=== PATIENT | male | born 1955 | race Caucasian/White ===

== ENCOUNTER 2022-07-06 11:08 | Inpatient (IN) ==
[2022-07-06] MEDS ORDERED: ONDANSETRON INJ 2 MG/ML 2 ML VIAL IV STA (11:28)
[2022-07-06] MEDS ORDERED: MoRPHine SULFATE 4 MG/ML 1 ML CARP\\VIAL IV STA ×2 (11:28→13:37)
[2022-07-06] MEDS ORDERED: SODIUM CHLORIDE 0.9% 1000ML 1,000 ML IV STA (11:28)
--- NOTE | 2022-07-06 11:38 | Emergency Department Note ---
History of Present Illness General Chief complaint: Testicular Pain Time Seen by Provider: 07/06/22 11:16 History of Present Illness This 66-year-old male presents today by BLS ambulance, for evaluation of his lef t testicle. Patient states he has a known inguinal hernia. States it frequently "pops out". This occurs with straining or coughing. He states he usually is able to push it back in. This morning he woke around 9 AM with significant discomfort in his left testicle. Upon inspection, he noted that his inguinal hernia had popped out again, but was larger than he had ever seen in the past. He was not able to reduce it. He states it was not like this when going to bed last evening. He now notes abdominal pain and some back pain. Denies any nausea or vomiting. States he had a normal bowel movement last evening. Patient states he has not seen a physician in over 25 years. Denies any medical problems. Home Medications Medication Instructions Recorded Confirmed Type naproxen sodium 220 mg tablet 200 mg PO DAILY PRN Pain 07/06/22 07/06/22 History (Shaggy) Allergies Allergy/AdvReac Type Severity Reaction Status Date / Time No Known Allergies Allergy Unverified 07/06/22 13:36 Past Med/Surg History Medical History Cardiomegaly Emphysema of lung Inguinal hernia Smoker Surgical History Hx of tonsillectomy Family History Mother Breast cancer Brother Cancer Social History Smoking Status: Current every day smoker Do You Dip or Chew Tobacco: No; Tobacco Cessation Education Requested by Patient: No Hx Alcohol Use: No Hx Substance Use: No Preferred Language: French Hearing Ability: Normal Medical Diagnostic Radiographer Required: No Beliefs That Will Affect Care: None marital status: Single Current Living Situation: Alone current occupational status: retired current occupation: worked for [employer] and [employer] Other Information That Helps Us Care for You: No Feels Safe at Home: Yes Safety Concerns: Feels Safe At This Time Review of Systems A total of 10 systems reviewed and were otherwise negative Physical Exam Vital Signs Vital Signs - 24 hr 07/06/22 11:16 07/06/22 11:16 07/06/22 11:46 Temperature 36.7 C 36.7 C Temperature Source Oral Oral Pulse Rate 89 96 H Pulse Rate [Apical] 97 H Pulse Rhythm Regular Pulse Rhythm [Apical] Regular Pulse Strength Normal Pulse Strength [Apical] Normal Respiratory Rate 18 18 18 Respiratory Effort / Characteristics Non-Labored Non-Labored Respiratory Depth Normal Normal Respiratory Pattern Regular Regular Blood Pressure 183/115 H Blood Pressure [Right Arm] 183/115 H Blood Pressure Mean 137 Blood Pressure Mean [Right Arm] 137 Blood Pressure Position Lying Blood Pressure Position [Right Arm] Lying Pulse Oximetry 95 95 93 Oxygen Delivery Method Room Air Room Air Room Air Sepsis Recent Fever Within 48 Hours No Sepsis New/Unexplained Change in Mental Status No Sepsis Action Taken by Nursing No Action Required 07/06/22 13:30 07/06/22 15:09 Temperature Temperature Source Pulse Rate Pulse Rate [Apical] 91 H 110 H Pulse Rhythm Pulse Rhythm [Apical] Pulse Strength Pulse Strength [Apical] Respiratory Rate 18 16 Respiratory Effort / Characteristics Respiratory Depth Respiratory Pattern Blood Pressure Blood Pressure [Right Arm] 187/104 H 143/95 H Blood Pressure Mean Blood Pressure Mean [Right Arm] 131 111 Blood Pressure Position Blood Pressure Position [Right Arm] Pulse Oximetry 93 88 L Oxygen Delivery Method Room Air Room Air Sepsis Recent Fever Within 48 Hours Sepsis New/Unexplained Change in Mental Status Sepsis Action Taken by Nursing General: Well-developed, well-nourished, early white male, in obvious discomfort. No acute distress. Laying on the bed. Alert and oriented. Skin: Warm and dry with good turgor. No rashes or lesions. No ecchymosis or erythema. The patient is not diaphoretic. No abrasions. HEENT: Normocephalic atraumatic. Eyes PERRLA, EOMI. No conjunctiva or scleral injection. Heart: Heart RRR. No MGR. Peripheral pulses are 2+. Lungs: Lungs are clear to auscultation. No crackles rhonchi or wheezing. Good air movement. The patient is able to take a deep breath. Abdomen: Abdomen was inspected, auscultated, and palpated. Bowel sounds present x 4. Obese. Soft, nontender to palpation. No hepato-splenomegaly. No masses noted. No rebound, No pain over McBurney's point. No CVA tenderness. Genitalia: External genitalia generally appear normal. It is scrotum is massively enlarged on the left. It is firm. There is fullness in the inguinal canal as well. Patient has no drainage. Urine was ordered but has not been obtained. Musculoskeletal: Gross motor function of the upper and lower extremities is intact and unremarkable. Neurologic: Gross sensation is intact across the upper and lower extremities by soft touch. Course Administered Medications Benzonatate (Benzonatate 100 Mg Capsule) 100 mg PO TID CALVIN Stop: 08/05/22 20:59 Last Admin: 07/06/22 20:04 Dose: 100 mg Documented By: [facility] [place]per[place] Sod/Tazobactam (Sod 4.5 gm/ Dextrose) 120 mls @ 30 mls/hr IV ONE ONE; Protocol Stop: 07/06/22 23:29 Last Admin: 07/06/22 20:04 Dose: 30 mls/hr Documented By: [facility] [place] Levalbuterol HCl (Levalbuterol 1.25mg/0.5ml Neb) 1.25 mg NEB Q6R CALVIN; Protocol Stop: 08/05/22 18:59 Last Admin: 07/06/22 19:35 Dose: 1.25 mg Documented By: AB Discontinued Medications Hydromorphone HCl (Hydromorphone Inj 0.5 Mg/0.5 Ml Syr) 0.5 mg IV NOW STA Stop: 07/06/22 17:24 Last Admin: 07/06/22 17:38 Dose: 0.5 mg Documented By: Sodium Chloride (Nss 1000ml) 1,000 mls @ 125 mls/hr IV .Q8H STA Stop: 07/06/22 19:27 Last Infusion: 07/06/22 19:53 Dose: 0 mls/hr Documented By: MARY ELLEN Admin: 07/06/22 12:22 Dose: 125 mls/hr Documented By: [facility] Lorazepam (Lorazepam 2 Mg/2 Ml Syr) 0.5 mg IV NOW STA; Protocol Stop: 07/06/22 14:16 Last Admin: 07/06/22 14:36 Dose: 0.5 mg Documented By: [facility] Morphine Sulfate (Morphine Sulfate 4 Mg/Ml 1 Ml Carp\\Vial) 4 mg IV NOW STA Stop: 07/06/22 11:29 Last Admin: 07/06/22 12:22 Dose: 4 mg Documented By: PARRIS Morphine Sulfate (Morphine Sulfate 4 Mg/Ml 1 Ml Carp\\Vial) 4 mg IV NOW STA Stop: 07/06/22 13:38 Last Admin: 07/06/22 13:44 Dose: 4 mg Documented By: JAYA Ondansetron HCl (Ondansetron Inj 2 Mg/Ml 2 Ml Vial) 4 mg IV NOW STA Stop: 07/06/22 11:29 Last Admin: 07/06/22 12:22 Dose: 4 mg Documented By: PARRIS Medical Decision Making Differential Diagnosis Incarcerated hernia, bowel obstruction, varicocele, hematoma Medical Records Attestation: I reviewed the patient's medical records. Home Medications Current Medication List: was personally reviewed by me Laboratory Data CBC, chemistry panel, troponin, and COVID test were obtained today. White count mildly elevated 11.39. Normal H&H. Chemistry panel is unremarkable. Lipase low at less than 3. COVID test is negative. Troponin was normal. Result diagrams: 07/06/22 12:10 07/06/22 12:10 Lab Results 07/06/22 07/06/22 07/06/22 Range/Units 12:10 12:10 12:10 WBC 11.39 H (4.8-10.8) K/ul RBC 5.21 (4.63-6.08) M/uL Hgb 16.5 (14.0-18.0) g/dl Hct 47.0 (40.1-51.0) % MCV 90.2 (80.0-100.0) fL MCH 31.7 (25.0-34.0) pg MCHC 35.1 (32.0-36.0) g/dL RDW Std Deviation 41.5 (36.4-46.3) fL RDW Coeff of Zeinab 12.7 (11.5-14.5) % Plt Count 134 (130-400) K/uL MPV 9.9 (9.4-12.4) fL Immature Gran % (Auto) 0.6 % Neut % (Auto) 89.2 % Lymph % (Auto) 4.7 % Milam % (Auto) 5.1 % Eos % (Auto) 0.2 % Baso % (Auto) 0.2 % Neut # (Auto) 10.17 H (1.4-6.5) K/uL Lymph # (Auto) 0.53 L (1.2-3.4) K/uL Milam # (Auto) 0.58 (0.24-0.82) K/uL Eos # (Auto) 0.02 (0-0.50) K/uL Baso # (Auto) 0.02 (0-0.2) K/uL Immature Gran # (Auto) 0.07 H (0.00-0.02) K/uL Sodium 134 L (136-145) mmol/L Potassium 4.0 (3.5-5.1) mmol/L Chloride 101 (98-107) mmol/L Carbon Dioxide 25 (21-32) mmol/L Anion Gap 8 (3-11) BUN 18 (6-23) mg/dl Creatinine 0.95 (0.6-1.4) mg/dl Est Cr Clr Drug Dosing 85.5 ml/min Est GFR ( Amer) 96.3 ml/min Est GFR (Non-Af Amer) 83.1 ml/min BUN/Creatinine Ratio 18.9 (10-20) Glucose 135 H (70-99(Fasting)) mg/dl Calcium 9.1 (8.5-10.1) mg/dl Total Bilirubin 0.9 (0.2-1.0) mg/dl AST 19 (13-39) U/L ALT 16 (7-52) U/L Alkaline Phosphatase 97 (34-104) U/L Troponin I High Sens (0-20) pg/ml Total Protein 7.3 (6.0-8.3) gm/dl Albumin 4.2 (3.4-5.0) gm/dl Globulin 3.1 (2.5-4.0) gm/dl Albumin/Globulin Ratio 1.4 (0.9-2) Lipase < 3 L (11-82) U/L SARS-CoV-2, RNA, NAAT NEGATIVE (NEGATIVE) 07/06/22 Range/Units 12:10 WBC (4.8-10.8) K/ul RBC (4.63-6.08) M/uL Hgb (14.0-18.0) g/dl Hct (40.1-51.0) % MCV (80.0-100.0) fL MCH (25.0-34.0) pg MCHC (32.0-36.0) g/dL RDW Std Deviation (36.4-46.3) fL RDW Coeff of Zeinab (11.5-14.5) % Plt Count (130-400) K/uL MPV (9.4-12.4) fL Immature Gran % (Auto) % Neut % (Auto) % Lymph % (Auto) % Milam % (Auto) % Eos % (Auto) % Baso % (Auto) % Neut # (Auto) (1.4-6.5) K/uL Lymph # (Auto) (1.2-3.4) K/uL Milam # (Auto) (0.24-0.82) K/uL Eos # (Auto) (0-0.50) K/uL Baso # (Auto) (0-0.2) K/uL Immature Gran # (Auto) (0.00-0.02) K/uL Sodium (136-145) mmol/L Potassium (3.5-5.1) mmol/L Chloride (98-107) mmol/L Carbon Dioxide (21-32) mmol/L Anion Gap (3-11) BUN (6-23) mg/dl Creatinine (0.6-1.4) mg/dl Est Cr Clr Drug Dosing ml/min Est GFR ( Amer) ml/min Est GFR (Non-Af Amer) ml/min BUN/Creatinine Ratio (10-20) Glucose (70-99(Fasting)) mg/dl Calcium (8.5-10.1) mg/dl Total Bilirubin (0.2-1.0) mg/dl AST (13-39) U/L ALT (7-52) U/L Alkaline Phosphatase (34-104) U/L Troponin I High Sens 11.8 (0-20) pg/ml Total Protein (6.0-8.3) gm/dl Albumin (3.4-5.0) gm/dl Globulin (2.5-4.0) gm/dl Albumin/Globulin Ratio (0.9-2) Lipase (11-82) U/L SARS-CoV-2, RNA, NAAT (NEGATIVE) Imaging Data My Impression: Chest x-ray obtained today was reviewed by me and read by radiology. Cardiomegaly and emphysema are noted without acute abnormality. No pneumothorax. No nodules. CT scan of the abdomen pelvis was obtained today. This was reviewed by me and read by radiology. There is a large left inguinal hernia with nonobstructed segment of sigmoid colon. No bowel obstruction is noted. He has a 3.7 x 3.8 infrarenal abdominal aortic aneurysm. Cardiomegaly and emphysema are again noted. Appendix is well visualized and normal. Radiologist's Impression: Abdomen/Pelvis CT 07/06/22 11:28 CT SCAN OF THE ABDOMEN AND PELVIS WITHOUT IV CONTRAST CLINICAL HISTORY: Inguinal hernia. COMPARISON STUDY: No priors. TECHNIQUE: CT scan of the abdomen and pelvis is performed from the lung bases to the proximal femora. Images are reviewed in the axial, sagittal, and coronal planes. IV contrast was not administered for this examination. A dose lowering technique was utilized adhering to the principles of ALARA. CT DOSE: 491.68 mGy.cm FINDINGS: Lung bases: The heart is enlarged and without pericardial effusion. The coronary arteries are densely calcified. Emphysematous change is noted at the lung bases. There is bibasilar scarring/atelectasis. A fat-containing Bochdalek hernia is seen on the left. No airspace consolidation or pleural effusion is identified. There is a small hiatal hernia. Liver: The unenhanced liver is normal in size, contour, and attenuation. There is no intrahepatic biliary ductal dilatation. Gallbladder: Unremarkable. Spleen: Normal in size and attenuation. There are calcified splenic granulomas. Pancreas: The unenhanced pancreas is moderately atrophic and grossly unremarkable. Adrenal glands: A 2 cm left adrenal nodule meets criteria for a fat-containing adenoma. The right adrenal gland is normal in appearance. Kidneys: The unenhanced kidneys are normal in size and without hydronephrosis. There are no renal calculi identified. There are at least 2 left renal cyst which measure up to 2.0 cm. Abdominal vasculature: There is moderate atherosclerotic calcification of the abdominal aorta. An infrarenal abdominal aortic aneurysm measures 3.7 x 3.8 cm (AP x transverse). Bowel: There is a large left inguinal hernia which contains a nonobstructed segment of the sigmoid colon. There is mild to moderate colonic fecal retention. No bowel obstruction is seen. The appendix is well-visualized and normal. Peritoneum: There is no intraperitoneal free air or abdominal ascites. There is a small fat-containing umbilical hernia. Lymphadenopathy: None. Pelvic viscera: The bladder, prostate gland is mildly enlarged and heterogeneous. The bladder is distended, wall appears thickened/trabeculated indicating chronic outlet obstruction. There is a large left inguinal hernia which contains bowel. Skeletal structures: The skeletal structures are osteopenic. There is a moderate chronic-appearing superior endplate compression deformity of L1. Mild lumbosacra l spondylosis is observed. No lytic or blastic lesions are seen. IMPRESSION: 1. There is a large left inguinal hernia which contains a nonobstructed segment of the sigmoid colon. 2. No bowel obstruction is seen. 3. There is a 3.7 x 3.8 cm infrarenal abdominal aortic aneurysm. 4. Cardiomegaly and emphysema. 5. Additional findings as above. ACT 112: Negative or not required by law. Electronically signed by: Gerardo Alcantar M.D. 07/06/2022 1:39 PM Chest X-Ray 07/06/22 11:29 SINGLE VIEW CHEST CLINICAL HISTORY: Preoperative examination FINDINGS: 2 AP, portable, upright chest radiographs are obtained. No prior studies are available for comparison at the time of dictation. The heart is mildly enlarged noting atherosclerotic calcification of the thoracic aorta. The pulmonary vasculature is noncongested. Emphysematous changes noted with left apical bullae. Nonspecific interstitial thickening is likely chronic. A nipple shadow projects over the right lung base. There is bibasilar scarring/atelectasis. No airspace consolidation or large pleural effusion is identified. No pneumothorax is seen. The skeletal structures are osteopenic. The bony thorax is grossly intact. IMPRESSION: Cardiomegaly and emphysema with no acute cardiopulmonary abnormality identified. ACT 112: Negative or not required by law. Electronically signed by: Gerardo Alcantar M.D. 07/06/2022 12:49 PM Blood Pressure Blood Pressure Findings: Elevated blood pressure Blood Pressure Disposition: further management by hospitalist SULEMAN Arnold Patient was evaluated in room B5. Conservative care measures were discussed. IV was established. Labs were obtained. Chest x-ray and EKG were obtained in anticipation of surgery. CT scan of the abdomen and pelvis was obtained today and reviewed by me. It was read by radiology as Patient was given morphine 4 mg IV and Zofran 4 mg IV to assist with pain control. He last ate yesterday afternoon at 3 PM. He did have approximately quarter bottle of Pepsi this morning about an hour and a half ago. He did require second dose of morphine 4 mg IV. Consult was placed to Dr. Beaver from general surgery. He did come to the department did evaluate the patient. Please see his dictation. Patient was given Ativan 0.5 mg IV to assist with relaxation in an attempt to manually reduce his hernia. Patient was given a glass of ice water to see if he could retain fluids. While drinking, he coughed, and then had recurrent extrusion of the bowel through the inguinal hernia. Scrotum was enlarged again. He was given additional 4 mg morphine IV for pain control. Dr. Beaver did return to the department and manually reduce it again. Because of the ease of which it recurred, he recomm ended admission, medical clearance, and surgical fixation. Patient is in agreement. He will require medical clearance as he has not seen a provider in over 25 years. [facility] Please see that dictation for an and final management. Impression & Plan Inguinal hernia Admission Discharge Plan Visit Data Chief Complaint: Testicular Pain ED Provider: Moraima Escobar ED Midlevel Provider: Juancarlos Albarran Discharge Problem: Inguinal hernia Patient Disposition: Admitted As Inpatient Condition: Fair Discharge Instructions Interventions: ED Discharge Assessment Last Done: 07/06/22 18:14
[2022-07-06 12:21] LABS: Basophils # (auto) 0.02 K/uL (0-0.2); Basophils % (auto) 0.2 %; Eosinophils # (auto) 0.02 K/uL (0-0.50); Eosinophils % (auto) 0.2 %; Hemoglobin 16.5 g/dl (14.0-18.0); Immature Granulocytes # (auto) 0.07 K/uL (0.00-0.02); Immature Granulocytes % (auto) 0.6 %; Lymphocytes # (auto) 0.53 K/uL (1.2-3.4); Lymphocytes % (auto) 4.7 %; Mean Corpuscular Hemoglobin 31.7 pg (25.0-34.0); Mean Corpuscular Hgb Conc 35.1 g/dL (32.0-36.0); Mean Corpuscular Volume 90.2 fL (80.0-100.0); Mean Platelet Volume 9.9 fL (9.4-12.4); Monocytes # (auto) 0.58 K/uL (0.24-0.82); Monocytes % (auto) 5.1 %; Neutrophils # (auto) 10.17 K/uL (1.4-6.5); Neutrophils % (auto) 89.2 %; Platelet Count 134 K/uL (130-400); RDW Coefficient of Variation 12.7 % (11.5-14.5); RDW Standard Deviation 41.5 fL (36.4-46.3); Red Blood Count 5.21 M/uL (4.63-6.08); White Blood Count 11.39 K/ul (4.8-10.8)
[2022-07-06 12:40] LABS: Alanine Aminotransferase 16 U/L (7-52); Albumin Globulin Ratio 1.4 (0.9-2); Albumin Level 4.2 gm/dl (3.4-5.0); Alkaline Phosphatase 97 U/L (34-104); Anion Gap 8 (3-11); Aspartate Aminotransferase 19 U/L (13-39); BUN Creatinine Ratio 18.9 (10-20); Bilirubin,Total 0.9 mg/dl (0.2-1.0); Blood Urea Nitrogen 18 mg/dl (6-23); Calcium 9.1 mg/dl (8.5-10.1); Carbon Dioxide 25 mmol/L (21-32); Chloride 101 mmol/L (98-107); Creatinine Clr Calc Pharmacy 85.5 ml/min; Est GFR (African American) 96.3 ml/min; Est GFR (Non-African American) 83.1 ml/min; Globulin 3.1 gm/dl (2.5-4.0); Glucose 135 mg/dl (70-99(Fasting)); Lipase < 3 U/L (11-82); Sodium 134 mmol/L (136-145); Total Protein 7.3 gm/dl (6.0-8.3)
--- NOTE | 2022-07-06 12:50 | XRay Report ---
SINGLE VIEW CHEST CLINICAL HISTORY: Preoperative examination FINDINGS: 2 AP, portable, upright chest radiographs are obtained. No prior studies are available for comparison at the time of dictation. The heart is mildly enlarged noting atherosclerotic calcificatio n of the thoracic aorta. The pulmonary vasculature is noncongested. Emphysematous changes noted with left apical bullae. Nonspecific interstitial thickening is likely chronic. A nipple shadow projects o adam the right lung base. There is bibasilar scarring/atelectasis. No airspace consolidation or large pleural effusion is identified. No pneumothorax is seen. The skeletal structures are osteopenic. The bony thorax is grossly intact. IMPRESSION: Cardiomegaly and emphysema with no acute cardiopulmonary abnormality identified. ACT 112: Negative or not required by law. Electronically signed by: Gerardo Alcantar M.D. 07/06/2022 12:49 PM
--- NOTE | 2022-07-06 13:41 | CT Scan Report ---
CT SCAN OF THE ABDOMEN AND PELVIS WITHOUT IV CONTRAST CLINICAL HISTORY: Inguinal hernia. COMPARISON STUDY: No priors. TECHNIQUE: CT scan of the abdomen and pelvis is performed from the lung bases to the proximal femora. Images are reviewed in the axial, sagittal, and coronal planes. IV contrast was not administered for this examination. A dose lowering technique was utilized adhering to the principles of ALARA. CT DOSE: 491.68 mGy.cm FINDINGS: Lung bases: The heart is enlarged and without pericardial effusion. The coronary arteries are densely calcified. Emphysematous change is noted at the lung bases. There is bibasilar scarring/atelectasis. A fat-containing Bochdalek hernia is seen on the left. No airspace consolidation or pleural effusion is identified. There is a small hiatal hernia. Liver: The unenhanced liver is normal in size, contour, and attenuation. There is no intrahepatic mayito iary ductal dilatation. Gallbladder: Unremarkable. Spleen: Normal in size and attenuation. There are calcified splenic granulomas. Pancreas: The unenhanced pancreas is moderately atrophic and grossly unremarkable. Adrenal glands: A 2 cm left adrenal nodule meets criteria for a fat-containing adenoma. The right adr enal gland is normal in appearance. Kidneys: The unenhanced kidneys are normal in size and without hydronephrosis. There are no renal sirisha culi identified. There are at least 2 left renal cyst which measure up to 2.0 cm. Abdominal vasculature: There is moderate atherosclerotic calcification of the abdominal aorta. An inf rarenal abdominal aortic aneurysm measures 3.7 x 3.8 cm (AP x transverse). Bowel: There is a large left inguinal hernia which contains a nonobstructed segment of the sigmoid co yumiko. There is mild to moderate colonic fecal retention. No bowel obstruction is seen. The appendix is well-visualized and normal. Peritoneum: There is no intraperitoneal free air or abdominal ascites. There is a small fat-containin g umbilical hernia. Lymphadenopathy: None. Pelvic viscera: The bladder, prostate gland is mildly enlarged and heterogeneous. The bladder is dist ended, wall appears thickened/trabeculated indicating chronic outlet obstruction. There is a large le ft inguinal hernia which contains bowel. Skeletal structures: The skeletal structures are osteopenic. There is a moderate chronic-appearing rabago perior endplate compression deformity of L1. Mild lumbosacral spondylosis is observed. No lytic or bl astic lesions are seen. IMPRESSION: 1. There is a large left inguinal hernia which contains a nonobstructed segment of the sigmoid colon. 2. No bowel obstruction is seen. 3. There is a 3.7 x 3.8 cm infrarenal abdominal aortic aneurysm. 4. Cardiomegaly and emphysema. 5. Additional findings as above. ACT 112: Negative or not required by law. Electronically signed by: Gerardo Alcantar M.D. 07/06/2022 1:39 PM
[2022-07-06] MEDS ORDERED: LORazepam 2 MG/2 ML SYR IV STA (14:15)
--- NOTE | 2022-07-06 14:52 | Surgery Consultation ---
Date of Consultation July 06, 2022 Assessment & Plan (1) Inguinal hernia: 66y/o male presented with large left inguinal hernia containing bowel. I was able to reduce this at the bedside. Would recommend p.o. challenge and discharge to home with plans for follow-up as an outpatient. Recommend he obtain a hernia truss. Briefly discussed risks of surgery. DC to home if tolerates p.o. intake Follow-up as an outpatient plan for elective inguinal hernia repair Obtain hernia truss Will need medical clearance prior to any intervention Return precautions given, call with questions or concerns (2) Cardiomegaly: (3) Emphysema of lung: (4) Smoker: History of Present Illness Reason for Consultation: Incarcerated left inguinal hernia History of Present Illness 66-year-old male presented to the emergency department with complaints of a left inguinal hernia that was larger but normal. He has had the hernia for several years and is usually able to reduce it. He has chronic cough due to smoking and this morning he woke up and it was 2-3 times a size normal. He has never had any abdominal surgery before. He has not been to the doctor in over 20 years. He lives by himself and is retired. He has an extensive smoking history. He states that he can climb a flight of steps without getting winded and is never had any chest pain with activity. Allergies Allergy/AdvReac Type Severity Reaction Status Date / Time No Known Allergies Allergy Unverified 07/06/22 13:36 Home Medications Medication Instructions Recorded Confirmed Type No Known Home Medications 07/06/22 07/06/22 History Patient History Medical History Cardiomegaly Emphysema of lung Inguinal hernia Smoker Surgical History (Updated 07/06/22 @ 11:36 by Juancarlos Albarran PA-C) No pertinent past surgical history Social History (Updated 07/06/22 @ 11:36 by Juancarlos Albarran PA-C) Smoking Status: Heavy tobacco smoker marital status: Single Current Living Situation: Alone Feels Safe at Home: Yes Review of Systems Review of Systems: All systems reviewed & are unremarkable except as noted in HPI & below Physical Exam Constitutional: WD/WN, vitals as above Respiratory: normal respiratory effort Auscultation: + crackles Cardiovascular: RRR, no murmur, no edema Gastrointestinal (Abdomen): normal bowel sounds, soft, nontender, no hepatosplenomegaly Percussion/Palpation: + hernia (Large left inguinal hernia reduced at bedside) Results & Data ([facility]) Vital Signs (Past 12 Hours) Vital Signs Temp Pulse Pulse Resp BP BP Pulse Ox 07/06/22 13:30 91 H 18 187/104 H 93 07/06/22 11:46 96 H 18 93 07/06/22 11:16 36.7 C 97 H 18 183/115 H 95 07/06/22 11:16 36.7 C 89 18 183/115 H 95 O2 Del Method 07/06/22 13:30 Room Air 07/06/22 11:46 Room Air 07/06/22 11:16 Room Air 07/06/22 11:16 Room Air Laboratory Results Laboratory Results - last 24 hr 07/06/22 07/06/22 07/06/22 12:10 12:10 12:10 WBC 11.39 H RBC 5.21 Hgb 16.5 Hct 47.0 MCV 90.2 MCH 31.7 MCHC 35.1 RDW Std Deviation 41.5 RDW Coeff of Zeinab 12.7 Plt Count 134 MPV 9.9 Immature Gran % (Auto) 0.6 Neut % (Auto) 89.2 Lymph % (Auto) 4.7 [place] % (Auto) 5.1 Eos % (Auto) 0.2 Baso % (Auto) 0.2 Neut # (Auto) 10.17 H Lymph # (Auto) 0.53 L [place] # (Auto) 0.58 Eos # (Auto) 0.02 Baso # (Auto) 0.02 Immature Gran # (Auto) 0.07 H Sodium 134 L Potassium 4.0 Chloride 101 Carbon Dioxide 25 Anion Gap 8 BUN 18 Creatinine 0.95 Est Cr Clr Drug Dosing 85.5 Est GFR ( Amer) 96.3 Est GFR (Non-Af Amer) 83.1 BUN/Creatinine Ratio 18.9 Glucose 135 H Calcium 9.1 Total Bilirubin 0.9 AST 19 ALT 16 Alkaline Phosphatase 97 Total Protein 7.3 Albumin 4.2 Globulin 3.1 Albumin/Globulin Ratio 1.4 Lipase < 3 L SARS-CoV-2, RNA, NAAT NEGATIVE Diagnostic Findings I personally reviewed and interpreted the CT scan myself, and agree with the assessment of a large left inguinal hernia containing a portion of colon that is nonobstructed. No evidence of strangulation. CT SCAN OF THE ABDOMEN AND PELVIS WITHOUT IV CONTRAST CLINICAL HISTORY: Inguinal hernia. COMPARISON STUDY: No priors. TECHNIQUE: CT scan of the abdomen and pelvis is performed from the lung bases to the proximal femora. Images are reviewed in the axial, sagittal, and coronal planes. IV contrast was not administered for this examination. A dose lowering technique was utilized adhering to the principles of ALARA. CT DOSE: 491.68 mGy.cm FINDINGS: Lung bases: The heart is enlarged and without pericardial effusion. The coronary arteries are densely calcified. Emphysematous change is noted at the lung bases. There is bibasilar scarring/atelectasis. A fat-containing Bochdalek hernia is seen on the left. No airspace consolidation or pleural effusion is identified. There is a small hiatal hernia. Liver: The unenhanced liver is normal in size, contour, and attenuation. There is no intrahepatic biliary ductal dilatation. Gallbladder: Unremarkable. Spleen: Normal in size and attenuation. There are calcified splenic granulomas. Pancreas: The unenhanced pancreas is moderately atrophic and grossly unremarkable. Adrenal glands: A 2 cm left adrenal nodule meets criteria for a fat-containing adenoma. The right adrenal gland is normal in appearance. Kidneys: The unenhanced kidneys are normal in size and without hydronephrosis. There are no renal calculi identified. There are at least 2 left renal cyst which measure up to 2.0 cm. Abdominal vasculature: There is moderate atherosclerotic calcification of the abdominal aorta. An infrarenal abdominal aortic aneurysm measures 3.7 x 3.8 cm (AP x transverse). Bowel: There is a large left inguinal hernia which contains a nonobstructed segment of the sigmoid colon. There is mild to moderate colonic fecal retention. No bowel obstruction is seen. The appendix is well-visualized and normal. Peritoneum: There is no intraperitoneal free air or abdominal ascites. There is a small fat-containing umbilical hernia. Lymphadenopathy: None. Pelvic viscera: The bladder, prostate gland is mildly enlarged and heterogeneous. The bladder is distended, wall appears thickened/trabeculated indicating chronic outlet obstruction. There is a large left inguinal hernia which contains bowel. Skeletal structures: The skeletal structures are osteopenic. There is a moderate chronic-appearing superior endplate compression deformity of L1. Mild lumbosacral spondylosis is observed. No lytic or blastic lesions are seen. IMPRESSION: 1. There is a large left inguinal hernia which contains a nonobstructed segment of the sigmoid colon. 2. No bowel obstruction is seen. 3. There is a 3.7 x 3.8 cm infrarenal abdominal aortic aneurysm. 4. Cardiomegaly and emphysema. 5. Additional findings as above. PG Care Time/CCT Total # of Minutes Spent Total Time Spent with Patient: Total time spent is greater than 50% in coordination of care (as documented) at patient's floor/unit and/or counseling patient: Coding Level of Care Code 78141 Office/Outpt Visit, New Diagnoses Inguinal hernia K40.90 Cardiomegaly I51.7 Emphysema of lung J43.9 Smoker F17.200
--- NOTE | 2022-07-06 17:08 | History & Physical Report ---
Date of Service July 06, 2022 Assessment & Plan (1) Inguinal hernia: Plan: - Admit to med surg with tele - Consulted general surgery - plan for surgical procedure on Friday, will need NPO on friday night - Continue fluids while poor PO intake, allow diet for now - Pain control with tylenol, toradol IV, dilaudid for severe pain prn. - Avoid QTc prolonging agents as noted on EKG with Qtc of 515 (2) Smoker: (3) Emphysema of lung: Plan: - Noted on CXR - Chronic smoking x 1.5 ppd x 54 years, pt declined a nicotine patch - Advised cessation at bedside - Will start Spiriva inh and xopenex nebs for wheezing to prevent further tachycardia - Would benefit from outpatient PFTs, does not wear any O2 at baseline but is requiring 2-3 L to maintain sats at 92%. Goal sats of 88-92% with suspected CO PD/emphysema. (4) Cardiomegaly: (5) Tachycardia: (6) Prolonged Q-T interval on ECG: Plan: - EKG reivewed as above - Check electrolytes including magnesium, repeat EKG with am labs - Check 2D echo with RBBB, bifasicular block, and prolonged Qtc - Consider cards consult pending results - Lipids and A1C with am labs for completeness - Noted hyperglycemia with glucose of 135 on admission although pt reports he has not eaten since midnight last night and drank a few sips of soda. Concerning for prediabetes. Follow glucose with routine labs AAA - noted on CT, will need outpt follow up DVT ppx: jamison augustin subq CODE: Full code Dispo: From home, lives alone, likely to remain in the hospital x 2 night, pending surgical procedure Friday morning. History of Present Illness Chief Complaint: Testicular pain Primary Care Provider: NO PCP This is a 66 yo M without known significant PMHx and has not seen a physician in over 25 years. He is a chronic smoker of 1.5 packs of cigarettes daily x 54 years. Emphysematous changes are seen on the CXR today. Pt has had this left sided inguinal hernia for about 7-8 years where it has been small and easily retractable by himself. Late last evening he noticed it was larger and more painful. His main complaints today include that the inguinal hernia has gotten 3x larger than what it has been and was not able to urinate today. Reports he couldn't didn't eat or drink anything since last night at midnight due to pain. Trialed Aleve today without relief and since getting pain medicine his pain is 6/10 and that he feels it in his back, its essentially no different than when he presented to the ER via EMS. He uses Aleve only occasionally, otherwise does not take any medication. His left inguinal hernia has already been reduced by general surgery twice here in the ER. Pt reports he used to work for [email or web address] and that he has had chronic back issues due to heavy lifting. He retired recently, in January 2022. He thinks his back has been better since retiring but today feels significant pain in the lower back. 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 Social Hx: He denies any alcohol use Smokes cigarettes 1.5 ppd since 14 years old, 54 years. Use to smoke marijuana but anymore. No illicit drug use. Family Hx includes Mother: 5 years ago from breast cancer, unsure of age. Father: of MS 40 years ago at age 74 Pt is one of 8 children. Hhe is one of the middle children. His older brother of cancer 3 years ago Other brothers and sisters are alive He does keep in touch with sister, Alee, who is his support system and knows he is here. He lives alone. Allergies Allergy/AdvReac Type Severity Reaction Status Date / Time No Known Allergies Allergy Unverified 07/06/22 13:36 Home Medications Medication Instructions Recorded Confirmed Type naproxen sodium 220 mg tablet 200 mg PO DAILY PRN Pain 07/06/22 07/06/22 History (Aleve) Past Med/Surg History Medical History Cardiomegaly Emphysema of lung Inguinal hernia Smoker Surgical History (Updated 07/06/22 @ 17:46 by Elizabeth Leija PA-C) Hx of tonsillectomy Family History (Updated 07/06/22 @ 17:02 by Juancarlos Albarran PA-C) Mother Breast cancer Brother Cancer Social History (Updated 07/06/22 @ 17:02 by Juancarlos Albarran PA-C) Smoking Status: Heavy tobacco smoker Hearing Ability: Normal marital status: Single Current Living Situation: Alone current occupational status: retired current occupation: worked for [employer] and [employer] Feels Safe at Home: Yes Review of Systems Review of Systems: Constitutional: No fever, sweats or chills Eyes: No diplopia, no worsening or blurred vision ENT: normal hearing, no trouble swallowing, + chronic post nasal drip Respiratory: No cough, sputum, dyspnea at rest or on exertion Cardiovascular: No chest pain, tightness or palpitations Abdomen: No pain, nausea, vomiting, diarrhea or constipation Back: + lower back pain as per HPI : +large left inguinal hernia reduced in the ER, Musculoskeletal: No joint pain, calf pain, swelling Neurologic: No weakness, numbness/tingling, or balance problems Psychiatric: No anxiety or depression Skin: No rash or itch Physical Exam Physical Exam: General: awake, alert, no apparent distress, + appears older th an stated age, Head: Normocephalic, atraumatic ENT: PERRL, EOMI, no pharyngeal exudate, mucous membranes moist Chest: On 3 L via NC, +coarse breath sounds bilaterally with expiratory wheezing throughout Cardiac: Sinus tach with HR in the low 100s, no murmur, no JVD, normal peripheral pulses, good capillary refill Abdominal: NABS x 4 quadrants, soft, nondistended, nontender to palpation, no rebound or guarding Back: No obvious injuries, ecchymosis or point tenderness : Left inguinal hernia reduced, bulge above the inguinal ligament on left side Extremities: Normal inspection, no peripheral edema or erythema, calfs nontender to palpation Psych: Normal mood and affect Neuro: AAO x 3, strength intact bilaterally and rated 5/5, no motor deficits, speech is clear, no peripheral sensory deficits Results & Data Results & Data ([facility]) Vital Signs (Past 12 Hours) Vital Signs Temp Pulse Pulse Resp BP BP Pulse Ox 07/06/22 15:09 110 H 16 143/95 H 88 L 07/06/22 13:30 91 H 18 187/104 H 93 07/06/22 11:46 96 H 18 93 07/06/22 11:16 36.7 C 97 H 18 183/115 H 95 07/06/22 11:16 36.7 C 89 18 183/115 H 95 O2 Del Method 07/06/22 15:09 Room Air 10/01/22 13:30 Room Air 07/06/22 11:46 Room Air 07/06/22 11:16 Room Air 07/06/22 11:16 Room Air Laboratory Results 07/06/22 07/06/22 07/06/22 12:10 12:10 12:10 WBC 11.39 H RBC 5.21 Hgb 16.5 Hct 47.0 MCV 90.2 MCH 31.7 MCHC 35.1 RDW Std Deviation 41.5 RDW Coeff of Zeinab 12.7 Plt Count 134 MPV 9.9 Immature Gran % (Auto) 0.6 Neut % (Auto) 89.2 Lymph % (Auto) 4.7 [place] % (Auto) 5.1 Eos % (Auto) 0.2 Baso % (Auto) 0.2 Neut # (Auto) 10.17 H Lymph # (Auto) 0.53 L [place] # (Auto) 0.58 Eos # (Auto) 0.02 Baso # (Auto) 0.02 Immature Gran # (Auto) 0.07 H Sodium 134 L Potassium 4.0 Chloride 101 Carbon Dioxide 25 Anion Gap 8 BUN 18 Creatinine 0.95 Est Cr Clr Drug Dosing 85.5 Est GFR ( Amer) 96.3 Est GFR (Non-Af Amer) 83.1 BUN/Creatinine Ratio 18.9 Glucose 135 H Calcium 9.1 Total Bilirubin 0.9 AST 19 ALT 16 Alkaline Phosphatase 97 Total Protein 7.3 Albumin 4.2 Globulin 3.1 Albumin/Globulin Ratio 1.4 Lipase < 3 L SARS-CoV-2, RNA, NAAT NEGATIVE Diagnostic Findings Abdomen/Pelvis CT 07/06/22 11:28 CT SCAN OF THE ABDOMEN AND PELVIS WITHOUT IV CONTRAST CLINICAL HISTORY: Inguinal hernia. COMPARISON STUDY: No priors. TECHNIQUE: CT scan of the abdomen and pelvis is performed from the lung bases to the proximal femora. Images are reviewed in the axial, sagittal, and coronal planes. IV contrast was not administered for this examination. A dose lowering technique was utilized adhering to the principles of ALARA. CT DOSE: 491.68 mGy.cm FINDINGS: Lung bases: The heart is enlarged and without pericardial effusion. The coronary arteries are densely calcified. Emphysematous change is noted at the lung bases. There is bibasilar scarring/atelectasis. A fat-containing Bochdalek hernia is seen on the left. No airspace consolidation or pleural effusion is identified. There is a small hiatal hernia. Liver: The unenhanced liver is normal in size, contour, and attenuation. There is no intrahepatic biliary ductal dilatation. Gallbladder: Unremarkable. Spleen: Normal in size and attenuation. There are calcified splenic granulomas. Pancreas: The unenhanced pancreas is moderately atrophic and grossly unremarkable. Adrenal glands: A 2 cm left adrenal nodule meets criteria for a fat-containing adenoma. The right adrenal gland is normal in appearance. Kidneys: The unenhanced kidneys are normal in size and without hydronephrosis. There are no renal calculi identified. There are at least 2 left renal cyst which measure up to 2.0 cm. Abdominal vasculature: There is moderate atherosclerotic calcification of the abdominal aorta. An infrarenal abdominal aortic aneurysm measures 3.7 x 3.8 cm (AP x transverse). Bowel: There is a large left inguinal hernia which contains a nonobstructed segment of the sigmoid colon. There is mild to moderate colonic fecal retention. No bowel obstruction is seen. The appendix is well-visualized and normal. Peritoneum: There is no intraperitoneal free air or abdominal ascites. There is a small fat-containing umbilical hernia. Lymphadenopathy: None. Pelvic viscera: The bladder, prostate gland is mildly enlarged and heterogeneous. The bladder is distended, wall appears thickened/trabeculated indicating chronic outlet obstruction. There is a large left inguinal hernia which contains bowel. Skeletal structures: The skeletal structures are osteopenic. There is a moderate chronic-appearing superior endplate compression deformity of L1. Mild lumbosacral spondylosis is observed. No lytic or blastic lesions are seen. IMPRESSION: 1. There is a large left inguinal hernia which contains a nonobstructed segment of the sigmoid colon. 2. No bowel obstruction is seen. 3. There is a 3.7 x 3.8 cm infrarenal abdominal aortic aneurysm. 4. Cardiomegaly and emphysema. 5. Additional findings as above. ACT 112: Negative or not required by law. Electronically signed by: Gerardo Alcantar M.D. 07/06/2022 1:39 PM Chest X-Ray 07/06/22 11:29 SINGLE VIEW CHEST CLINICAL HISTORY: Preoperative examination FINDINGS: 2 AP, portable, upright chest radiographs are obtained. No prior studies are available for comparison at the time of dictation. The heart is mildly enlarged noting atherosclerotic calcification of the thoracic aorta. The pulmonary vasculature is noncongested. Emphysematous changes noted with left apical bullae. Nonspecific interstitial thickening is likely chronic. A nipple shadow projects over the right lung base. There is bibasilar scarring/ate lectasis. No airspace consolidation or large pleural effusion is identified. No pneumothorax is seen. The skeletal structures are osteopenic. The bony thorax is grossly intact. IMPRESSION: Cardiomegaly and emphysema with no acute cardiopulmonary abnormality identified. ACT 112: Negative or not required by law. Electronically signed by: Gerardo Alcantar M.D. 07/06/2022 12:49 PM ECG Additional Comments: 06-JUL-2022 11:57:17 [facility]-EDSTAT ROUTINE RETRIEVAL Sinus rhythm with occasional Premature ventricular complexes Right bundle branch block Left anterior fascicular block Bifascicular block Septal infarct , age undetermined Abnormal ECG No previous ECGs available 25mm/s10mm/[id number] 241CID: [id number] by: REFERRED SELF Unconfirmed Vent. rate 96 BPM VA interval 152 ms QRS duration 148 ms QT/QTc 408/515 ms Code Status & VTE Plan Code Status Full code VTE Prophylaxis Plan VTE Prophylaxis will be ordered: Yes Supervising Physician Co-Signing Physician Notes Pt seen and examined by me, care coordinated brando/ Regina Leija pls refer to her note above for further detail. Pt is a 66 yo M without known significant PMHx and has not seen a physician in years. He is a chronic smoker, emphysematous changes noted on CXR today. Pt has had left sided inguinal hernia for several years, it has been small and easily retractable but last evening he noticed it was larger and more painful. Reports he couldn't eat or drink anything since last night at midnight due to pain. His left inguinal hernia has already been reduced by general surgery twice here in the ER. Patient also has a chronic cough, reports this is unchanged, and reports this is due to smoking. Denies any fevers or chills, denies any sputum production. UA also obtained in ER consistent with UTI. Temperature elevated at 37.8 Celsius. Plan for surgical repair of his hernia. Prior to surgery will obtain echo cardiogram given his abnormal ECG, and no medical records to review. We will start empiric antibiotics. Follow urine culture. Knab, MD
[2022-07-06] MEDS ORDERED: HYDROmorphone INJ 0.5 MG/0.5 ML SYR IV STA (17:23)
[2022-07-06 18:24] LABS: Appearance Urine Cloudy (Clear); Bacteria Urine Automated 3+ (Negative); Bilirubin Urine Negative (Negative); Blood Urine 1+ (Negative); Color Urine Yellow; Glucose Urine UA Negative (Negative); Ketones Urine Negative (Negative); Leukocyte Esterase Urine Trace (Negative); Nitrite Urine Positive (Negative); Protein Urine Negative (Negative); RBC Urine Automated 0-4 /hpf (0-4); Specific Gravity Urine 1.017 (1.000-1.030); Urobilinogen Urine Negative (Negative); pH Urine 5.5 (4.5-7.5)
[2022-07-06] MEDS ORDERED: POLYETHYLENE (MIRALAX) 17 GM PACK PO PRN (18:26)
[2022-07-06] MEDS ORDERED: ACETAMINOPHEN 325 MG TAB PO PRN (18:33)
[2022-07-06] MEDS ORDERED: HYDROmorphone INJ 0.5 MG/0.5 ML SYR IV PRN (18:33)
[2022-07-06] MEDS ORDERED: KETOROLAC TROMETHAMINE 15 MG/ML VIAL IV PRN (18:33)
[2022-07-06] MEDS ORDERED: PIPERACILLIN/TAZOBACTAM 4.5 GM in DEXTROSE 5% 100 ML IV ONE (19:30)
[2022-07-06] MEDS: LEVALBUTEROL 1.25MG/0.5ML NEB NEB SCH (19:35)
[2022-07-06] MEDS: BENZONATATE 100 MG CAPSULE PO SCH (20:04)
[2022-07-07] MEDS: LEVALBUTEROL 1.25MG/0.5ML NEB NEB SCH ×5 (01:07→20:20)
[2022-07-07] MEDS: PIPERACILLIN/TAZOBACTAM 3.375 GM in DEXTROSE 5% 100 ML IV SCH ×3 (03:13→17:22)
--- NOTE | 2022-07-07 05:34 | Surgery Progress Note ---
Date of Service July 07, 2022 Assessment & Plan (1) Inguinal hernia: Plan: Continue analgesics as needed Continue hernia truss to help keep hernia reduced As patient is having difficulty keeping hernia reduced will consider an elective repair of hernia earlier this week, pending medical evaluation Plans noted by primary service to obtain an echo due to abnormal EKG (cardiology consultation may be obtained based on echo results once obtained) Admission and Anticipated Discharge Date Admission Date: July 06, 2022 Supervising Physician Co-Signing Physician Notes Patient seen and examined, agree with above. 66-year-old male presented with incarcerated left inguinal hernia containing bowel with no ischemia or obstruction, which I was able to reduce in the emergency department. However he continued to recur so he was admitted for medical clearance with plans for surgery early this week. He is now able to easily reduce the hernia. He is on oxygen. Afebrile with mild tachycardia and otherwise stable vitals. Requiring oxygen. Abdomen soft, nontender. He can easily reduce the hernia. 66y/o male with symptomatic left inguinal hernia Tentatively plan for surgery tomorrow pending medical clearance for surgery plan for laparoscopic/robotic left inguinal hernia repair, possible right risks discussed to include but not limited to bleeding, infection, recurrence, chronic pain, damage to surrounding structures including testicle, need for future or more extensive surgery, and risks of anesthesia N.p.o. after midnight Appreciate medical assistance with this patient Subjective Patient is resting comfortably in bed. At the present time he denies any pain in his groin at the site of his inguinal hernia. He denies any fevers, shakes, chills. He denies any nausea or vomiting Physical Exam Gastrointestinal (Abdomen): Abdomen is soft, nonrigid, nondistended, nontender to palpation. Patient's groins were palpated bilaterally and it appears as though his hernia reduced at the present time. There is no pain in the groin with palpation. Results & Data ([facility]) Vital Signs (Past 12 Hours) Vital Signs Temp Pulse Pulse Pulse Resp BP Pulse Ox 07/07/22 04:35 102 H 24 93 07/07/22 03:08 37.5 C 92 H 18 149/89 H 94 07/07/22 00:00 108 H 07/06/22 22:59 37.4 C 101 H 18 156/101 H 92 07/06/22 18:30 07/06/22 19:44 37.6 C H 103 H 18 124/85 95 07/06/22 19:35 76 20 95 07/06/22 18:45 100 H 07/06/22 18:00 37.8 C H 106 H 20 162/91 H 94 O2 Del Method O2 Flow Rate 07/07/22 04:35 Nasal Cannula 2 07/07/22 03:08 Nasal Cannula 2 07/07/22 00:00 07/06/22 22:59 Nasal Cannula 2 07/06/22 18:30 Nasal Cannula 3 07/06/22 19:44 Nasal Cannula 2 07/06/22 19:35 Nasal Cannula 2 07/06/22 18:45 07/06/22 18:00 Nasal Cannula 3 PG Care Time/CCT Total # of Minutes Spent Total Time Spent with Patient: Total time spent is greater than 50% in coordination of care (as documented) at patient's floor/unit and/or counseling patient: Coding Level of Care Code 23379 Subseq Hosp Care Lvl 1 Diagnoses Inguinal hernia K40.90
[2022-07-07 05:54] LABS: Hematocrit (blood only) 43.4 % (40.1-51.0); Hemoglobin 14.9 g/dl (14.0-18.0); Mean Corpuscular Hemoglobin 31.4 pg (25.0-34.0); Mean Corpuscular Hgb Conc 34.3 g/dL (32.0-36.0); Mean Corpuscular Volume 91.6 fL (80.0-100.0); Mean Platelet Volume 10.1 fL (9.4-12.4); Platelet Count 119 K/uL (130-400); RDW Coefficient of Variation 12.8 % (11.5-14.5); RDW Standard Deviation 42.7 fL (36.4-46.3); Red Blood Count 4.74 M/uL (4.63-6.08); White Blood Count 9.76 K/ul (4.8-10.8)
[2022-07-07 06:02] LABS: INR 1.1 (0.9-1.1); Prothrombin Time 11.5 Seconds (9.0-12.0)
[2022-07-07 06:10] LABS: Albumin Globulin Ratio 1.3 (0.9-2); Albumin Level 3.8 gm/dl (3.4-5.0); BUN Creatinine Ratio 18.9 (10-20); Bilirubin,Total 1.1 mg/dl (0.2-1.0); Calcium 8.6 mg/dl (8.5-10.1); Chol HDL Ratio 4.7 (0-5); Creatinine Clr Calc Pharmacy 76.8 ml/min; Est GFR (African American) 84.3 ml/min; Est GFR (Non-African American) 72.8 ml/min; Globulin 2.9 gm/dl (2.5-4.0); Magnesium 1.9 mg/dl (1.7-2.4); Total Protein 6.7 gm/dl (6.0-8.3)
--- NOTE | 2022-07-07 07:18 | Electrocardiogram Report ---
Test Reason : Blood Pressure : / mmHG Vent. Rate : 096 BPM Atrial Rate : 096 BPM P-R Int : 146 ms QRS Dur : 142 ms QT Int : 412 ms P-R-T Axes : 076 -58 002 degrees QTc Int : 520 ms Sinus rhythm with occasional Premature ventricular complexes Right bundle branch block Left anterior fascicular block Bifascicular block Abnormal ECG When compared with ECG of 06-JUL-2022 11:57, (unconfirmed) No significant change was found Confirmed by Toño Crump ([id number]) on 07/07/2022 7:18:34 AM Referred By: REFERRED SELF Confirmed By:Don Crump
--- NOTE | 2022-07-07 07:22 | Electrocardiogram Report ---
Test Reason : Blood Pressure : / mmHG Vent. Rate : 096 BPM Atrial Rate : 096 BPM P-R Int : 152 ms QRS Dur : 148 ms QT Int : 408 ms P-R-T Axes : 065 -63 012 degrees QTc Int : 515 ms Sinus rhythm with occasional Premature ventricular complexes Right bundle branch block Left anterior fascicular block Bifascicular block Abnormal ECG No previous ECGs available Confirmed by Toño Crump ([id number]) on 07/07/2022 7:22:19 AM Referred By: REFERRED SELF Confirmed By:Don Crump
[2022-07-07] MEDS: NICOTINE 14 MG/24 HR PATCH TD SCH (07:43)
[2022-07-07] MEDS: ENOXAPARIN INJ 40 MG/0.4 ML SYR SQ SCH (07:44)
[2022-07-07] MEDS: SENNA 8.6 MG TAB PO SCH (07:45)
[2022-07-07] MEDS: BENZONATATE 100 MG CAPSULE PO SCH ×3 (07:45→19:34)
[2022-07-07] MEDS: UMECLIDINIUM BROMIDE 62.5MCG/BLISTER 7 PUFFS/INHALER INH SCH (07:45)
--- NOTE | 2022-07-07 13:40 | Hospitalist Progress Note ---
Date of Service July 07, 2022 Assessment & Plan (1) Inguinal hernia: Plan: -Left reducible inguinal hernia - Consulted general surgery - plan for surgical procedure on Friday, will need NPO on friday night - Continue fluids while poor PO intake, allow diet for now - Pain control with tylenol, toradol IV, dilaudid for severe pain prn. -Minimal pain in the left lower quadrant without nausea and or vomiting or any obstructive hernia (2) Smoker: (3) Emphysema of lung: Plan: - Noted on CXR - Chronic smoking x 1.5 ppd x 54 years, pt declined a nicotine patch - Advised cessation at bedside - Will start Spiriva inh and xopenex nebs for wheezing to prevent further tachycardia - Would benefit from outpatient PFTs, does not wear any O2 at baseline but is requiring 2-3 L to maintain sats at 92%. Goal sats of 88-92% with suspected COPD/emphysema. -No shortness of breath at rest (4) Cardiomegaly: Plan: Denies any chest pain, palpitation or shortness of breath with exertion Has significant EKG changes likely chronic Echo of the heart showed: Normal LV chamber size and wall thickness, mildly reduced LV systolic function with abnormal septal wall motion consistent with interventricular conduction delay otherwise normal wall motion with EF of 45 to 50%, grade 1 diastolic dysfunction, no significant valvular pathology, small loculated anterior pericardial effusion without hemodynamic significance. Medically cleared for surgery given no cardiac symptoms (5) Tachycardia: (6) Prolonged Q-T interval on ECG: Plan: - EKG reivewed as above - Check electrolytes including magnesium, repeat EKG with am labs - Check 2D echo with RBBB, bifasicular block, and prolonged Qtc -Echo has been noted -Minimal systolic dysfunction without any cardiac symptoms -Clinically cleared for surgery with acceptable risk - Lipids unremarkable - A1C's pending - Noted hyperglycemia with glucose of 135 on admission although pt reports he has not eaten since midnight last night and drank a few sips of soda. Concerning for prediabetes. Follow glucose with routine labs - AAA - noted on CT, will need outpt follow up DVT ppx: jamison augustin subq CODE: Full code Dispo: From home, lives alone, likely to remain in the hospital x 2 night, pending surgical procedure Friday. Admission and Anticipated Discharge Date Admission Date: July 06, 2022 Subjective 07/07/2022 The patient was seen and examined in medical telemetry unit He has been complaining of left lower quadrant and associated back pain complicated by reducible left inguinal hernia Complains to have chronic back pain with radiculopathy in the past Denies any chest pain, palpitation or shortness of breath with exertion Like to go for repair of left inguinal hernia tomorrow Review of Systems Review of Systems: All systems reviewed and are unremarkable except as noted below Physical Exam Physical Exam: Sitting at the edge of the bed without any acute distress Constitutional: well developed, well nourished, + ill appearing and + obese Eyes: PERRL, conjunctivae normal, anicteric sclerae ENMT: external ear and nose normal, oropharynx normal Neck: trachea midline, no thyromegaly Respiratory: no respiratory distress Auscultation: + diminished lung sounds and + crackles (Minimal crackles at the bases) Cardiovascular: Rate/Rhythm: regular rate and regular rhythm; not tachycardic Heart Sounds: normal S1 and normal S2; no murmur Extremities: + edema (Trace edema bilaterally) Gastrointestinal (Abdomen): Inspection/Auscultation: abdomen normal to inspection and normal bowel sounds; abdomen not distended Percuss ion/Palpation: + abdomen tender (Minimally tender left lower quadrant and inguinal area) and abdomen soft Hernia is reduced Musculoskeletal: No acute arthritis in any joint Neurologic: Alert, awake and oriented x3. No focal sensory or no motor deficit appreciated Psychiatric: A+Ox3, euthymic affect Lymphatic: no cervical or axillary lymphadenopathy Results & Data Results & Data ([facility]) Vital Signs (Past 12 Hours) Vital Signs Temp Pulse Resp BP Pulse Ox O2 Del Method O2 Flow Rate 07/07/22 11:31 36.9 C 75 16 159/94 H 95 Nasal Cannula 2 07/07/22 08:00 Nasal Cannula 2 07/07/22 04:35 102 H 24 93 Nasal Cannula 2 07/07/22 03:08 37.5 C 92 H 18 149/89 H 94 Nasal Cannula 2 Laboratory Results Short CBC 07/07/22 Range/Units 05:17 WBC 9.76 (4.8-10.8) K/ul Hgb 14.9 (14.0-18.0) g/dl Hct 43.4 (40.1-51.0) % Plt Count 119 L (130-400) K/uL BMP 07/07/22 05:17 Sodium 134 L Potassium 4.0 Chloride 102 Carbon Dioxide 24 BUN 20 Creatinine 1.06 Glucose 128 H Calcium 8.6 Liver Function 07/07/22 Range/Units 05:17 Total Bilirubin 1.1 H (0.2-1.0) mg/dl AST 20 (13-39) U/L ALT 14 (7-52) U/L Alkaline Phosphatase 82 (34-104) U/L Albumin 3.8 (3.4-5.0) gm/dl Urine 07/06/22 Range/Units 18:01 Urine Color Yellow Urine Appearance Cloudy A (Clear) Urine pH 5.5 (4.5-7.5) Ur Specific [place] 1.017 (1.000-1.030) Urine Protein Negative (Negative) Urine Glucose (UA) Negative (Negative) Medications Administered Current Inpatient Medications Acetaminophen (Acetaminophen 325 Mg Tab) 650 mg PO Q4H PRN PRN Reason: Moderate Pain Stop: 08/05/22 18:32 Benzonatate (Benzonatate 100 Mg Capsule) 100 mg PO TID [facility] Stop: 08/05/22 20:59 Last Admin: 07/07/22 13:18 Dose: 100 mg Enoxaparin Sodium (Enoxaparin Inj 40 Mg/0.4 Ml Syr) 40 mg SQ QAM [facility] Stop: 08/06/22 08:59 Last Admin: 07/07/22 07:44 Dose: 40 mg Hydromorphone HCl (Hydromorphone Inj 0.5 Mg/0.5 Ml Syr) 0.5 mg IV Q6H PRN PRN Reason: Severe Pain Stop: 07/20/22 18:32 Piperacillin Sod/Tazobactam (Sod 3.375 gm/ Dextrose) 115 mls @ 30 mls/hr IV Q8H [facility]; Protocol Stop: 07/09/22 02:29 Last Infusion: 07/07/22 12:59 Dose: Infused Ketorolac Tromethamine (Ketorolac Tromethamine 15 Mg/Ml Vial) 15 mg IV Q6H PRN PRN Reason: Moderate Pain Stop: 07/11/22 18:32 Levalbuterol HCl (Levalbuterol 1.25mg/0.5ml Neb) 1.25 mg NEB Q6R [facility]; Protocol Stop: 08/05/22 18:59 Last Admin: 07/07/22 12:49 Dose: Not Given Miscellaneous (Remove Nicoderm Patch) 1 each N/A DAILY@0859 [facility] Stop: 08/06/22 08:58 Last Admin: 07/07/22 07:44 Dose: 1 each Nicotine (Nicotine 14 Mg/24 Hr Patch) 14 mg TD [facility] Stop: 08/06/22 08:59 Last Admin: 07/07/22 07:43 Dose: 14 mg Polyethylene Glycol (Polyethylene (Miralax) 17 Gm Pack) 17 gm PO DAILY PRN PRN Reason: Constipation Stop: 08/05/22 18:25 Sennosides (Senna 8.6 Mg Tab) 8.6 mg PO [facility] Stop: 08/06/22 08:59 Last Admin: 07/07/22 07:45 Dose: 8.6 mg Umeclidinium [place] (Umeclidinium [place] 62.5mcg/Blister 7 Puffs/Inhaler) 1 puffs INH [facility] Stop: 08/06/22 08:59 Last Admin: 07/07/22 07:45 Dose: 1 puffs
[2022-07-07] MEDS: guaiFENesin/CODEINE 100MG/10MG 5ML UDC PO PRN (21:17)
[2022-07-07] MEDS: FLUTICASONE PROPIONATE NA SPR 16 GM BTL SCH (21:17)
[2022-07-07] MEDS ORDERED: LEVALBUTEROL HCL 1.25 MG/3 ML NEB NEB PRN (22:00)
[2022-07-07] MEDS: MELATONIN 3 MG TAB PO PRN (22:58)
[2022-07-08] MEDS: guaiFENesin/CODEINE 100MG/10MG 5ML UDC PO PRN ×2 (03:08→23:02)
[2022-07-08] MEDS: PIPERACILLIN/TAZOBACTAM 3.375 GM in DEXTROSE 5% 100 ML IV SCH ×3 (03:17→18:04)
--- NOTE | 2022-07-08 07:04 | Anesthesiology Consultation ---
Date of Service July 08, 2022 Assessment & Plan (1) Encounter for pre-operative examination: Chart Review Chart Review: gas line servicer initiated History Surgery Operation Date: 07/08/22 08:25 Proposed Procedures p Robotic Left Laparoscopic Inguinal Hernia Repair Possible - Adrian Beaver DO, YAZ Height/Weight Height: 5 ft 10 in Weight: 87.8 kg Allergies Allergy/AdvReac Type Severity Reaction Status Date / Time No Known Allergies Allergy Unverified 07/06/22 13:36 Medications Home Medications Medication Instructions Recorded Confirmed Last Taken naproxen sodium 220 mg tablet 200 mg PO DAILY PRN Pain 07/06/22 07/06/22 07/06/22 (Aleve) Active Medications Generic Name Dose Route Start Last Admin Trade Name Freq PRN Reason Stop Dose Admin Acetaminophen 650 mg 07/06/22 18:33 07/07/22 22:58 Acetaminophen 325 Mg Tab PO 08/05/22 18:32 650 mg Q4H PRN Administration Moderate Pain Benzonatate 100 mg 07/06/22 21:00 07/07/22 19:34 Benzonatate 100 Mg Capsule PO 08/05/22 20:59 100 mg TID [facility] Administration Enoxaparin Sodium 40 mg 07/07/22 09:00 07/07/22 07:44 Enoxaparin Inj 40 Mg/0.4 Ml Syr SQ 08/06/22 08:59 40 mg QAM [facility] Administration Fluticasone Propionate 2 sprays 07/07/22 20:00 07/07/22 21:17 Fluticasone Propionate Na Spr 16 Gm Btl NA 08/06/22 19:59 2 sprays DAILY [facility] Administration Guaifenesin/Codeine Phosphate 5 ml 07/07/22 19:50 07/08/22 03:08 Guaifenesin/Codeine 100mg/10mg 5ml Udc PO 08/06/22 19:49 5 ml Q6H PRN Administration Cough Piperacillin Sod/Tazobactam 115 mls @ 30 mls/hr 07/07/22 02:30 07/08/22 06:40 Sod 3.375 gm/ Dextrose IV 07/09/22 02:29 Infused Q8H [facility] Infusion Protocol Ketorolac Tromethamine 15 mg 07/06/22 18:33 07/08/22 03:08 Ketorolac Tromethamine 15 Mg/Ml Vial IV 07/11/22 18:32 15 mg Q6H PRN Administration Moderate Pain Levalbuterol HCl 1.25 mg 07/07/22 22:00 07/07/22 23:39 Levalbuterol Hcl 1.25 Mg/3 Ml Neb NEB 08/06/22 21:58 1.25 mg Q4H PRN Administration Shortness Of Breath Or Wheezing Protocol Melatonin 3 mg 07/07/22 19:50 07/07/22 22:58 Melatonin 3 Mg Tab PO 08/06/22 19:49 3 mg HS PRN Administration Sleep Miscellaneous 1 each 07/07/22 08:59 07/07/22 07:44 Remove Nicoderm Patch N/A 08/06/22 08:58 1 each DAILY@0859 [facility] Administration Nicotine 14 mg 07/07/22 09:00 07/07/22 07:43 Nicotine 14 Mg/24 Hr Patch TD 08/06/22 08:59 14 mg QAM [facility] Administration Sennosides 8.6 mg 07/07/22 09:00 07/07/22 07:45 Senna 8.6 Mg Tab PO 08/06/22 08:59 8.6 mg QAM [facility] Administration Umeclidinium [place] 1 puffs 07/07/22 09:00 07/07/22 07:45 Umeclidinium [place] 62.5mcg/Blister 7 Puffs/Inhaler INH 08/06/22 08:59 1 puffs QAM [facility] Administration Past Medical History Medical History Cardiomegaly Emphysema of lung Inguinal hernia Smoker Past Family History Family History Mother Breast cancer Brother Cancer Past Surgical History Surgical History Hx of tonsillectomy Social History Smoking Status: Current every day smoker tobacco type: cigarettes Do You Dip or Chew Tobacco: No Hx Alcohol Use: No Hx Substance Use: No substance use type: does not use Physical Exam Vital Signs Last Vital Signs Temp 97.7 F 07/08/22 03:05 Pulse 64 07/08/22 03:05 Resp 16 07/08/22 03:05 BP 137/88 07/08/22 03:05 Pulse Ox 97 07/08/22 03:05 O2 Del Method 07/08/22 03:05 O2 Flow Rate 2 07/08/22 03:05 Testing Laboratory Results 07/07/22 05:17 07/07/22 05:17 PT 11.5 Seconds (9.0-12.0) 07/07/22 05:17 INR 1.1 (0.9-1.1) 07/07/22 05:17 Urine Color Yellow 07/06/22 18:01 Urine Appearance Cloudy (Clear) A 07/06/22 18:01 Urine pH 5.5 (4.5-7.5) 07/06/22 18:01 Ur Specific [place] 1.017 (1.000-1.030) 07/06/22 18:01 Urine Protein Negative (Negative) 07/06/22 18:01 Urine Glucose (UA) Negative (Negative) 07/06/22 18:01 Urine Ketones Negative (Negative) 07/06/22 18:01 Urine Nitrite Positive (Negative) A 07/06/22 18:01 Ur Leukocyte Esterase Trace (Negative) H 07/06/22 18:01 Urine WBC (Auto) 5-10 /hpf (0-5) H 07/06/22 18:01 Urine RBC (Auto) 0-4 /hpf (0-4) 07/06/22 18:01 U Hyaline Cast (Auto) 1-5 /lpf (0-5) 07/06/22 18:01 U Epithel Cells (Auto) 10-20 /lpf (0-5) H 07/06/22 18:01 Urine Bacteria (Auto) 3+ (Negative) H 07/06/22 18:01 07/06/22 19:04 Aerobic Blood Culture - Preliminary Blood No growth in Aerobic bottle after 24 hours. Anaerobic Blood Culture - Preliminary No growth in Anaerobic bottle after 24 hours. 07/06/22 19:14 Aerobic Blood Culture - Preliminary Blood No growth in Aerobic bottle after 24 hours. Anaerobic Blood Culture - Preliminary No growth in Anaerobic bottle after 24 hours. 07/06/22 18:01 Urine Culture - Preliminary Urine,Straight Cath Pin-point growth present, reincubating. Electrocardiogram Date: 07/07/22 Sinus rhythm with occasional Premature ventricular complexes, rate 96 bpm Right bundle branch block Left anterior fascicular block Bifascicular block Abnormal ECG When compared with ECG of 06-JUL-2022 11:57, (unconfirmed) No significant change was found Confirmed by Toño Crump ([id number]) on 07/07/2022 7:18:34 AM Chest X-Ray Date: 07/06/22 IMPRESSION: Cardiomegaly and emphysema with no acute cardiopulmonary abnormality identified. Echocardiogram Date: 07/07/22 No previous studies available for comparison. Normal LV chamber size and wall thickness. Mildly reduced LV systolic function with abnormal septal wall motion consistent with intraventricular conduction delay, otherwise, normal wall motion. EF 45-50%. Grade 1 diastolic dysfunction. No significant valvular pathology. Small, loculated anterior pericardial effusion without hemodynamic significance.
[2022-07-08 07:47] LABS: Estimated Average Glucose 117 mg/dl; Hemoglobin A1C 5.7 % (4.5-5.6)
[2022-07-08] MEDS: SENNA 8.6 MG TAB PO SCH (08:25)
[2022-07-08] MEDS: UMECLIDINIUM BROMIDE 62.5MCG/BLISTER 7 PUFFS/INHALER INH SCH (08:25)
[2022-07-08] MEDS: ENOXAPARIN INJ 40 MG/0.4 ML SYR SQ SCH (08:25)
[2022-07-08 08:26] LABS: Hematocrit (blood only) 42.6 % (40.1-51.0); Hemoglobin 14.6 g/dl (14.0-18.0); Mean Corpuscular Hemoglobin 31.5 pg (25.0-34.0); Mean Corpuscular Hgb Conc 34.3 g/dL (32.0-36.0); Mean Corpuscular Volume 91.8 fL (80.0-100.0); Mean Platelet Volume 10.1 fL (9.4-12.4); Platelet Count 106 K/uL (130-400); RDW Coefficient of Variation 12.7 % (11.5-14.5); RDW Standard Deviation 42.5 fL (36.4-46.3); Red Blood Count 4.64 M/uL (4.63-6.08); White Blood Count 7.23 K/ul (4.8-10.8)
[2022-07-08] MEDS: NICOTINE 14 MG/24 HR PATCH TD SCH (08:26)
[2022-07-08] MEDS: FLUTICASONE PROPIONATE NA SPR 16 GM BTL SCH (08:26)
[2022-07-08] MEDS: BENZONATATE 100 MG CAPSULE PO SCH ×3 (08:31→19:53)
[2022-07-08 08:38] LABS: Calcium 8.6 mg/dl (8.5-10.1); Creatinine Clr Calc Pharmacy 88.2 ml/min; Est GFR (African American) 100.1 ml/min; Est GFR (Non-African American) 86.4 ml/min; Potassium 3.9 mmol/L (3.5-5.1)
[2022-07-08 08:43] LABS: Basophils # (auto) 0.03 K/uL (0-0.2); Basophils % (auto) 0.4 %; Eosinophils # (auto) 0.15 K/uL (0-0.50); Eosinophils % (auto) 2.1 %; Immature Granulocytes # (auto) 0.07 K/uL (0.00-0.02); Lymphocytes # (auto) 1.23 K/uL (1.2-3.4); Monocytes # (auto) 0.92 K/uL (0.24-0.82); Monocytes % (auto) 12.7 %; Neutrophils # (auto) 4.83 K/uL (1.4-6.5); Neutrophils % (auto) 66.8 %
[2022-07-08] MEDS ORDERED: fentaNYL citrate 100 MCG/2 ML VIAL ONE ×2 (10:44→13:33)
[2022-07-08] MEDS ORDERED: LIDOCAINE 2% 20 MG/ML 5 ML SYR IV ONE (10:44)
[2022-07-08] MEDS ORDERED: PROPOFOL IV EMULSION 10 MG/ML 20 ML VIAL IV ONE (10:44)
[2022-07-08] MEDS ORDERED: ROCURONIUM BROMIDE 10 MG/ML 5 ML VIAL IV ONE ×3 (10:44→13:59)
[2022-07-08] MEDS ORDERED: MIDAZOLAM HCL 1 MG/ML 2ML VIAL ONE (10:44)
[2022-07-08] MEDS ORDERED: fentaNYL citrate 100 MCG/2 ML VIAL IV PRN (12:11)
[2022-07-08] MEDS ORDERED: ATROPINE SULFATE 0.1 MG/ML 10ML SYR IV PRN (12:11)
[2022-07-08] MEDS ORDERED: ePHEDrine sulfate 50 MG/ML AMP IV PRN (12:11)
[2022-07-08] MEDS ORDERED: ONDANSETRON INJ 2 MG/ML 2 ML VIAL IV PRN (12:11)
[2022-07-08] MEDS ORDERED: BUPIVACAINE 0.5 % 5 MG/1 ML MPF 30ML VIAL ONE (12:14)
--- NOTE | 2022-07-08 12:32 | Surgery Progress Note ---
Date of Service July 08, 2022 Assessment & Plan (1) Inguinal hernia: Plan: 66y/o male with symptomatic left inguinal hernia, with recent incarceration, desires repair. He has been cleared by medicine for surgery. plan for laparoscopic/robotic left inguinal hernia repair, possible right risks discussed to include but not limited to bleeding, infection, recurrence, chronic pain, damage to surrounding structures including testicle, need for future or more extensive surgery, and risks of anesthesia educated on signs and symptoms of incarceration, obstruction, and strangulation return precautions given, call with questions or concerns Hopeful for discharge tomorrow pending medical evaluation (2) Emphysema of lung: (3) Cardiomegaly: (4) Smoker: Admission and Anticipated Discharge Date Admission Date: July 06, 2022 Subjective 66-year-old male admitted over the weekend with symptomatic left inguinal hernia that was incarcerated in the ED but then reduced. After the hernia recurred several times, he was admitted to the medical service for evaluation and medical clearance. They have cleared him for surgery. He is easily able to reduce the hernia at this time. Review of Systems Review of Systems: All systems reviewed & are unremarkable except as noted in HPI & below Physical Exam Constitutional: WD/WN, vitals as above Gastrointestinal (Abdomen): normal bowel sounds, soft, nontender, no hepatosplenomegaly Percussion/Palpation: + hernia (Reducible left inguinal hernia) Results & Data ([facility]) Vital Signs (Past 12 Hours) Vital Signs Temp Pulse Pulse Resp BP BP Pulse Ox 07/08/22 11:53 36.9 C 81 18 160/102 H 97 07/08/22 06:07 82 07/08/22 07:59 36.7 C 85 16 160/90 H 97 07/08/22 07:39 07/08/22 03:05 36.5 C 64 16 137/88 97 O2 Del Method O2 Flow Rate 07/08/22 11:53 Room Air 07/08/22 06:07 07/08/22 07:59 Room Air 07/08/22 07:39 Nasal Cannula 2 07/08/22 03:05 Nasal Cannula 2 PG Care Time/CCT Total # of Minutes Spent Total Time Spent with Patient: Total time spent is greater than 50% in coordination of care (as documented) at patient's floor/unit and/or counseling patient: Coding Level of Care Code 40409 Inpt Consult Level 2 Diagnoses Inguinal hernia K40.90 Emphysema of lung J43.9 Cardiomegaly I51.7 Smoker F17.200
[2022-07-08] MEDS ORDERED: PHENYLEPHRINE HCL 10 MG/ML VIAL ONE (12:47)
[2022-07-08] MEDS ORDERED: KETAMINE 50 MG/5 ML SYRINGE ONE (12:56)
[2022-07-08] MEDS ORDERED: ONDANSETRON INJ 2 MG/ML 2 ML VIAL ONE (13:35)
[2022-07-08] MEDS ORDERED: DEXAMETHASONE SOD INJ 4 MG/ML VIAL ONE (13:35)
[2022-07-08] MEDS ORDERED: GLYCOPYRROLATE 0.2 MG/ML VIAL ONE (14:18)
[2022-07-08] MEDS ORDERED: NEOSTIGMINE METHYLSULFATE 1 MG/ML 10ML VIAL ONE (14:18)
--- NOTE | 2022-07-08 14:27 | Operative Report ---
PG Post Operative Report Pre & Post Diagnosis Operation Date: 07/08/22 08:25 Pre-Op Diagnosis: Incarcerated left inguinal hernia Post-Op Diagnosis: Incarcerated large left indirect inguinal hernia I identified the patient and participated in the time-out.: Yes Procedure Operation Date: 07/08/22 08:25 Actual Procedures p Robotic Left Laparoscopic Inguinal Hernia Repair (Not Applicable) - Adrian Beaver DO, YAZ Surgeon Adrian Beaver DO, YAZ Acoustical Tile Drill Press Operator Wendy Ferrer Estimated Blood Loss 5 Findings Consistent with Post-Op Diagnosis Large incarcerated left indirect inguinal hernia containing sigmoid colon. ProGrip mesh placed on the left. No obvious hernia on the right. Specimens None Anesthesia Type General Complications none Disposition Accompanied Patient To Recovery: No Disposition: Recovery Room Indications 66-year-old male admitted over the weekend with large incarcerated indirect inguinal hernia. I was able to reduce it at the bedside but he continued to recur. He was cleared by medicine prior to surgery. Plan for robotic left inguinal hernia repair, possible right. The risks of the procedure were discussed, all questions were answered, and the patient agreed to proceed with surgery as planned. Description of Procedure The patient was properly identified, consented, and taken to the operating room where he was placed in the supine position. General endotracheal anesthesia was induced. SCDs and a safety belt were placed. A arias catheter was already in place. Preoperative antibiotics were administered. The patient's groins and abdomen were prepped and draped in the standard sterile fashion. Surgical timeout was performed and all parties were in agreement that this was the joe ect patient and procedure to be performed and we continued as planned. An incision was made in the upper abdomen just off of the midline. The Veress needle was inserted and saline drop test confirmed entry into the abdomen. The abdomen was insufflated with carbon dioxide which the patient tolerated without incident. The Veress needle was removed and the abdomen was entered using the Optiview technique and a 5 mm camera. The introducer was removed and the camera reinserted. No damage from initial trocar placement or Veress needle placement was identified. There were no abnormalities in the 4 quadrants of the abdomen. A very large indirect inguinal hernia was identified on the left containing sigmoid colon. There was no obvious inguinal hernia on the right. 8 mm robotic ports were then placed in the right upper quadrant and left upper quadrant. The patient was placed in the Trendelenburg position. The robot was docked, and the camera and instruments were inserted. The peritoneum was incised approximately 6 cm above the defect, starting at the medial umbilical ligament and working laterally. The peritoneal flap was raised. Dissection began laterally at the anterior superior iliac spine. Davis's ligament was then dissected medially. The cord structures were circumferentially dissected. A very large indirect inguinal hernia was identified. The peritoneum was reduced and the cord was skeletonized. The dissection was somewhat tedious with there for quite some time and there was significant scar tissue. Progrip mesh was placed on the left and covered the direct, indirect, and femoral spaces. The peritoneal flap was then closed with a running absorbable barbed suture. The robot was undocked and the ports were removed. The skin of all port sites were closed with 4-0 Monocryl subcuticular suture, and Dermabond was placed over the incisions. The patient was extubated in the operating room and taken to the PACU for recovery without apparent incident. All sponge, instrument, and needle counts were correct at the conclusion of the procedure. The patient tolerated the procedure well. The physician's under water assistant was present and scrubbed for the entirety of the procedure, and was critical in positioning the patient, prepping and draping, retraction and exposure, driving the laparoscope, assistance with exchange of the robotic instruments, closure of the incisions, and placement of the dressings. I attest to the content of the Intraoperative Record and any orders documented therein. Any exceptions are noted below.
[2022-07-08] MEDS ORDERED: ALBUT/IPRATROP 3MG/0.5MG NEB 3 ML VIAL NEB STA (14:54)
--- NOTE | 2022-07-08 14:57 | Hospitalist Progress Note ---
Date of Service July 08, 2022 Assessment & Plan (1) Inguinal hernia: Plan: -Left reducible inguinal hernia - Consulted general surgery - plan for surgical procedure on Friday, will need NPO on friday night - Continue fluids while poor PO intake, allow diet for now - Pain control with tylenol, toradol IV, dilaudid for severe pain prn. -Minimal pain in the left lower quadrant without nausea and or vomiting or any obstructive hernia -Will have robotic assisted left laparoscopic inguinal hernia repair with mesh today (2) Smoker: (3) Emphysema of lung: Plan: - Noted on CXR - Chronic smoking x 1.5 ppd x 54 years, pt declined a nicotine patch - Advised cessation at bedside - Will start Spiriva inh and xopenex nebs for wheezing to prevent further tachycardia - Would benefit from outpatient PFTs, does not wear any O2 at baseline but is requiring 2-3 L to maintain sats at 92%. Goal sats of 88-92% with suspected COPD/emphysema. -No shortness of breath at rest (4) Cardiomegaly: Plan: Denies any chest pain, palpitation or shortness of breath with exertion Has significant EKG changes likely chronic Echo of the heart showed: Normal LV chamber size and wall thickness, mildly reduced LV systolic function with abnormal septal wall motion consistent with interventricular conduction delay otherwise normal wall motion with EF of 45 to 50%, grade 1 diastolic dysfunction, no significant valvular pathology, small loculated anterior pericardial effusion without hemodynamic significance. Medically cleared for surgery given no cardiac symptoms Denies any cardiac symptoms (5) Tachycardia: (6) Prolonged Q-T interval on ECG: Plan: - EKG reivewed as above - Check electrolytes including magnesium, repeat EKG with am labs - Check 2D echo with RBBB, bifasicular block, and prolonged Qtc -Echo has been noted -Minimal systolic dysfunction without any cardiac symptoms -Clinically cleared for surgery with acceptable risk - Lipids unremarkable - A1C's pending - Noted hyperglycemia with glucose of 135 on admission although pt reports he has not eaten since midnight last night and drank a few sips of soda. Concerning for prediabetes. Follow glucose with routine labs - AAA - noted on CT, will need outpt follow up DVT ppx: [email or web address] [email or web address] subq CODE: Full code Dispo: From home, lives alone, likely to remain in the hospital x 2 night, pending surgical procedure Jac morning. Admission and Anticipated Discharge Date Admission Date: July 06, 2022 Subjective 07/07/2022 The patient was seen and examined in medical telemetry unit He has been complaining of left lower quadrant and associated back pain complicated by reducible left inguinal hernia Complains to have chronic back pain with radiculopathy in the past Denies any chest pain, palpitation or shortness of breath with exertion Like to go for repair of left inguinal hernia tomorrow 07/08/2022 The patient was seen and examined in medical telemetry unit He will have left inguinal hernia repair today Denies any significant symptoms Review of Systems Review of Systems: All systems reviewed and are unremarkable except as noted below Physical Exam Physical Exam: Sitting at the edge of the bed without any acute distress Constitutional: well developed, well nourished, + ill appearing and + obese Eyes: PERRL, conjunctivae normal, anicteric sclerae ENMT: external ear and nose normal, oropharynx normal Neck: trachea midline, no thyromegaly Respiratory: no respiratory distress Auscultation: + diminished lung sounds and + crackles (Minimal crackles at the bases) Cardiovascular: Rate/Rhythm: regular rate and regular rhythm; not tachycardic Heart Sounds: normal S1 and normal S2; no murmur Extremities: + edema (Trace edema bilaterally) Gastrointestinal (Abdomen): Inspection/Auscultation: abdomen normal to inspection and normal bowel sounds; abdomen not distended Percussion/Palpation: + abdomen tender (Minimally tender left lower quadrant and inguinal area) and abdomen soft Musculoskeletal: No acute arthritis in any joint Neurologic: Alert, awake and oriented x3. No focal sensory or no motor defi cit appreciated Psychiatric: A+Ox3, euthymic affect Lymphatic: no cervical or axillary lymphadenopathy Results & Data Results & Data ([facility]) Vital Signs (Past 12 Hours) Vital Signs Temp Pulse Pulse Pulse Resp BP BP 07/08/22 14:52 95 H 16 07/08/22 11:53 36.9 C 81 18 160/102 H 07/08/22 06:07 82 07/08/22 07:59 36.7 C 85 16 160/90 H 07/08/22 07:39 07/08/22 03:05 36.5 C 64 16 137/88 Pulse Ox O2 Del Method O2 Flow Rate 07/08/22 14:52 95 Oxymask 7 10/03/22 11:53 97 Room Air 07/08/22 06:07 07/08/22 07:59 97 Room Air 07/08/22 07:39 Nasal Cannula 2 07/08/22 03:05 97 Nasal Cannula 2 Laboratory Results Short CBC 07/08/22 07/08/22 Range/Units 06:20 08:04 WBC 7.23 (4.8-10.8) K/ul Hgb 14.6 (14.0-18.0) g/dl Hct 42.6 (40.1-51.0) % Plt Count 106 L (130-400) K/uL BMP 07/08/22 07/08/22 06:20 08:04 Sodium Cancelled 135 L Potassium Cancelled 3.9 Chloride Cancelled 101 Carbon Dioxide Cancelled 28 BUN Cancelled 23 Creatinine Cancelled 0.92 Glucose Cancelled 112 H Calcium Cancelled 8.6 Medications Administered Current Inpatient Medications Acetaminophen (Acetaminophen 325 Mg Tab) 650 mg PO Q4H PRN PRN Reason: Moderate Pain Stop: 08/05/22 18:32 Last Admin: 07/07/22 22:58 Dose: 650 mg Albuterol (Albut/Ipratrop 3mg/0.5mg Neb 3 Ml Vial) 3 ml NEB NOW STA; Protocol Stop: 07/08/22 14:55 Atropine Sulfate (Atropine Sulfate 0.1 Mg/Ml 10ml Syr) 0.5 mg IV Q1M PRN PRN Reason: PACU Use-HR<40 &/or Bradycardi Stop: 07/08/22 20:11 Benzonatate (Benzonatate 100 Mg Capsule) 100 mg PO TID [facility] Stop: 08/05/22 20:59 Last Admin: 07/08/22 08:31 Dose: 100 mg Enoxaparin Sodium (Enoxaparin Inj 40 Mg/0.4 Ml Syr) 40 mg SQ QAM [facility] Stop: 08/06/22 08:59 Last Admin: 07/08/22 08:25 Dose: Not Given Ephedrine Sulfate (Ephedrine Sulfate 50 Mg/Ml Amp) 5 mg IV Q5M PRN PRN Reason: PACU Use Only-SBP<90 mmHg Stop: 07/08/22 20:11 Fentanyl Citrate (Fentanyl Citrate 100 Mcg/2 Ml Vial) 25 mcg IV Q5M PRN PRN Reason: PACU Use Only-Pain Stop: 07/08/22 20:11 Fluticasone Propionate (Fluticasone Propionate Na Spr 16 Gm Btl) 2 sprays NA DAILY [facility] Stop: 08/06/22 19:59 Last Admin: 07/08/22 08:26 Dose: 2 sprays Guaifenesin/Codeine Phosphate (Guaifenesin/Codeine 100mg/10mg 5ml Udc) 5 ml PO Q6H PRN PRN Reason: Cough Stop: 08/06/22 19:49 Last Admin: 07/08/22 03:08 Dose: 5 ml Hydromorphone HCl (Hydromorphone Inj 0.5 Mg/0.5 Ml Syr) 0.5 mg IV Q6H PRN PRN Reason: Severe Pain Stop: 07/20/22 18:32 Piperacillin Sod/Tazobactam (Sod 3.375 gm/ Dextrose) 115 mls @ 30 mls/hr IV Q8H [facility]; Protocol Stop: 07/09/22 02:29 Last Admin: 07/08/22 09:51 Dose: 30 mls/hr Ketorolac Tromethamine (Ketorolac Tromethamine 15 Mg/Ml Vial) 15 mg IV Q6H PRN PRN Reason: Moderate Pain Stop: 07/11/22 18:32 Last Admin: 07/08/22 03:08 Dose: 15 mg Levalbuterol HCl (Levalbuterol Hcl 1.25 Mg/3 Ml Neb) 1.25 mg NEB Q4H PRN; Protocol PRN Reason: Shortness Of Breath Or Wheezing Stop: 08/06/22 21:58 Last Admin: 07/07/22 23:39 Dose: 1.25 mg Melatonin (Melatonin 3 Mg Tab) 3 mg PO HS PRN PRN Reason: Sleep Stop: 08/06/22 19:49 Last Admin: 07/07/22 22:58 Dose: 3 mg Miscellaneous (Remove Nicoderm Patch) 1 each N/A DAILY@0859 [facility] Stop: 08/06/22 08:58 Last Admin: 07/08/22 08:24 Dose: 1 each Nicotine (Nicotine 14 Mg/24 Hr Patch) 14 mg TD QAM [facility] Stop: 08/06/22 08:59 Last Admin: 07/08/22 08:26 Dose: 14 mg Ondansetron HCl (Ondansetron Inj 2 Mg/Ml 2 Ml Vial) 4 mg IV ONCE PRN PRN Reason: PACU Use Only-Nausea/Vomiting Stop: 07/08/22 20:11 Polyethylene Glycol (Polyethylene (Miralax) 17 Gm Pack) 17 gm PO DAILY PRN PRN Reason: Constipation Stop: 08/05/22 18:25 Sennosides (Senna 8.6 Mg Tab) [facility] Stop: 08/06/22 08:59 Last Admin: 07/08/22 08:25 Dose: 8.6 mg Umeclidinium [place] (Umeclidinium [place] 62.5mcg/Blister 7 Puffs/Inhaler) 1 puffs [facility] Stop: 08/06/22 08:59 Last Admin: 07/08/22 08:25 Dose: 1 puffs
--- NOTE | 2022-07-08 15:32 | Anesthesiology Progress Note ---
Date of Service July 08, 2022 Anesthesia Post Procedure Vital Signs Vital Signs: Temp Pulse Pulse Pulse Resp BP BP 07/08/22 15:10 95 H 14 178/93 H 07/08/22 15:00 94 H 14 167/92 H 07/08/22 14:50 97 H 16 178/98 H 07/08/22 14:42 36.4 C L 102 H 16 187/104 H 07/08/22 14:52 95 H 16 07/08/22 11:53 36.9 C 81 18 160/102 H 07/08/22 06:07 82 07/08/22 07:59 36.7 C 85 16 160/90 H 07/08/22 07:39 07/08/22 03:05 36.5 C 64 16 137/88 07/07/22 22:09 100 H 07/07/22 23:27 81 25 H 198/92 H 07/07/22 23:40 99 H 24 07/07/22 23:15 37.0 C 88 18 175/97 H 07/07/22 19:35 07/07/22 19:40 106 H 20 182/90 H 07/07/22 16:05 37.1 C 89 16 151/94 H Pulse Ox O2 Del Method O2 Flow Rate 07/08/22 15:10 91 Oxymask 3 07/08/22 15:00 97 Oxymask 3 07/08/22 14:50 94 Oxymask 4 07/08/22 14:42 96 Oxymask 5 07/08/22 14:52 95 Oxymask 7 07/08/22 11:53 97 Room Air 07/08/22 06:07 07/08/22 07:59 97 Room Air 07/08/22 07:39 Nasal Cannula 2 07/08/22 03:05 97 Nasal Cannula 2 07/07/22 22:09 07/07/22 23:27 93 Nasal Cannula 2 07/07/22 23:40 94 Nasal Cannula 2 07/07/22 23:15 96 Nasal Cannula 2 07/07/22 19:35 Nasal Cannula 2 07/07/22 19:40 95 Nasal Cannula 2 07/07/22 16:05 96 Nasal Cannula 2 Pain Intensity Left Groin: Pain Intensity: 7 Lower Back: Pain Intensity: 2 Transfer of Care Handoff Completed per policy Notes Mental Status: alert / awake / arousable and participated in evaluation Patient Amnestic to Procedure: Yes Nausea / Vomiting: adequately controlled Pain: adequately controlled Airway Patency, RR, SpO2: stable & adequate BP & HR: stable & adequate Hydration State: stable & adequate Anesthetic Complications: no major complications apparent and Pt Satisfied with anesthetic care
[2022-07-08] MEDS ORDERED: MoRPHine SULFATE 2 MG/ML CARP IV PRN (15:43)
[2022-07-08] MEDS ORDERED: MoRPHine SULFATE 4 MG/ML 1 ML CARP\\VIAL IV PRN (15:43)
[2022-07-08] MEDS ORDERED: diphenhydrAMINE 50 MG/ML VIAL IV PRN (15:43)
[2022-07-08] MEDS ORDERED: oxyCODONE HCL IR 5 MG TAB (IMMEDIATE RELEASE) PO PRN ×2 (15:43)
[2022-07-08] MEDS: KETOROLAC TROMETHAMINE 15 MG/ML VIAL IV SCH ×2 (16:34→23:03)
[2022-07-08] MEDS: ACETAMINOPHEN 325 MG TAB PO SCH ×2 (16:34→23:02)
[2022-07-08] MEDS: MELATONIN 3 MG TAB PO PRN (23:02)
[2022-07-09] MEDS: KETOROLAC TROMETHAMINE 15 MG/ML VIAL IV SCH ×2 (04:54→09:57)
[2022-07-09] MEDS: ACETAMINOPHEN 325 MG TAB PO SCH ×2 (04:54→09:57)
[2022-07-09 07:07] LABS: Basophils # (auto) 0.02 K/uL (0-0.2); Basophils % (auto) 0.2 %; Eosinophils # (auto) 0.04 K/uL (0-0.50); Eosinophils % (auto) 0.5 %; Hematocrit (blood only) 41.6 % (40.1-51.0); Hemoglobin 14.7 g/dl (14.0-18.0); Immature Granulocytes # (auto) 0.08 K/uL (0.00-0.02); Immature Granulocytes % (auto) 0.9 %; Lymphocytes # (auto) 1.22 K/uL (1.2-3.4); Lymphocytes % (auto) 14.4 %; Mean Corpuscular Hemoglobin 32.2 pg (25.0-34.0); Mean Corpuscular Hgb Conc 35.3 g/dL (32.0-36.0); Mean Corpuscular Volume 91.2 fL (80.0-100.0); Mean Platelet Volume 10.5 fL (9.4-12.4); Monocytes # (auto) 0.91 K/uL (0.24-0.82); Monocytes % (auto) 10.8 %; Neutrophils # (auto) 6.19 K/uL (1.4-6.5); Neutrophils % (auto) 73.2 %; Platelet Count 148 K/uL (130-400); RDW Coefficient of Variation 12.4 % (11.5-14.5); RDW Standard Deviation 40.9 fL (36.4-46.3); Red Blood Count 4.56 M/uL (4.63-6.08); White Blood Count 8.46 K/ul (4.8-10.8)
[2022-07-09 07:37] LABS: BUN Creatinine Ratio 19.1 (10-20); Calcium 8.6 mg/dl (8.5-10.1); Creatinine Clr Calc Pharmacy 86.3 ml/min; Est GFR (African American) 97.5 ml/min; Est GFR (Non-African American) 84.2 ml/min; Potassium 4.5 mmol/L (3.5-5.1)
--- NOTE | 2022-07-09 07:54 | Surgery Progress Note ---
Date of Service July 09, 2022 Assessment & Plan (1) Inguinal hernia: Plan: POD#1 robotic left inguinal hernia repair with mesh WBC 8.4, Cr: 09 Pt doing well. Pain controlled. Tolerating a diet Surgical incisions c/d/i Will d/c arias catheter this AM Pending void, ongoing pain control and toleration of diet he could dispo later today from our standpoint pending medicine clearance May use compressive underwear and ice as needed to help with any pain swelling, may shower, no heavy lifting >15 lbs F/U with Dr. Beaver in clinic within 1-2 weeks Admission and Anticipated Discharge Date Admission Date: July 06, 2022 Supervising Physician Co-Signing Physician Notes Patient seen examined, agree with above. 66-year-old male POD #1 robotic left inguinal hernia repair for large inguinal hernia with recent incarceration. He is feeling well and his pain is controlled. He is tolerating regular diet. He has not urinated since removal of the catheter. On exam he is afebrile stable vitals. Incisions with Dermabond no evidence of infection. No evidence of recurrence of the hernia. His abdomen is soft, nontender, nondistended. If he can tolerate his diet and his pain is controlled and he is able to urinate then he may be discharged home. Follow-up in 2 weeks in the general surgery clinic with me. Wound care instructions, activity restrictions, and return precautions given, call with questions or concerns. Subjective Patient is feeling well. Tolerating a diet yesterday evening. Pain controlled. Denies n/v. Having some sinus issues and requesting flonase. Physical Exam Physical Exam: awake/alert, no distress Respiratory: on supplemental O2 Gastrointestinal (Abdomen): Inspection/Auscultation: + abdomen distended (mild) and + abdominal surgical incision (c/d/i with skin glue) Percussion/Palpation: abdomen soft; abdomen nontender Results & Data ([facility]) Vital Signs (Past 12 Hours) Vital Signs Temp Pulse Pulse Resp BP Pulse Ox O2 Del Method 07/09/22 06:18 77 07/09/22 03:32 36.5 C 74 18 152/72 H 96 Nasal Cannula 07/08/22 22:57 36.6 C 88 20 160/93 H 95 Nasal Cannula 07/08/22 22:18 96 H 07/08/22 19:54 Nasal Cannula O2 Flow Rate 07/09/22 06:18 07/09/22 03:32 3 07/08/22 22:57 3 07/08/22 22:18 07/08/22 19:54 2 PG Care Time/CCT Total # of Minutes Spent Total Time Spent with Patient: Total time spent is greater than 50% in coordination of care (as documented) at patient's floor/unit and/or counseling patient: Coding Level of Care Code None Diagnoses Inguinal hernia K40.90
[2022-07-09] MEDS: UMECLIDINIUM BROMIDE 62.5MCG/BLISTER 7 PUFFS/INHALER INH SCH (08:03)
[2022-07-09] MEDS: NICOTINE 14 MG/24 HR PATCH TD SCH (08:03)
[2022-07-09] MEDS: FLUTICASONE PROPIONATE NA SPR 16 GM BTL SCH (08:03)
[2022-07-09] MEDS: ENOXAPARIN INJ 40 MG/0.4 ML SYR SQ SCH (08:04)
[2022-07-09] MEDS: SENNA 8.6 MG TAB PO SCH (08:05)
[2022-07-09] MEDS: BENZONATATE 100 MG CAPSULE PO SCH ×2 (08:07→14:10)
[2022-07-09] MEDS: cephALEXin 500 MG CAP PO SCH ×2 (09:34→14:10)
--- NOTE | 2022-07-09 12:03 | Hospitalist Progress Note ---
Date of Service July 09, 2022 Assessment & Plan (1) Inguinal hernia: Plan: -Left reducible inguinal hernia - Consulted general surgery - plan for surgical procedure on Friday, will need NPO on friday night - Continue fluids while poor PO intake, allow diet for now - Pain control with tylenol, toradol IV, dilaudid for severe pain prn. -Minimal pain in the left lower quadrant without nausea and or vomiting or any obstructive hernia -Will have robotic assisted left laparoscopic inguinal hernia repair with mesh today -Status post robotic left inguinal hernia repair with mesh POD #1 -Denies any symptoms but has minimal pain in the left inguinal area -Has been ambulating in the room and in the hallway without any difficulties -He wants to go home (2) Smoker: (3) Emphysema of lung: Plan: - Noted on CXR - Chronic smoking x 1.5 ppd x 54 years, pt declined a nicotine patch - Advised cessation at bedside - Will start Spiriva inh and xopenex nebs for wheezing to prevent further tachycardia - Would benefit from outpatient PFTs, does not wear any O2 at baseline but is requiring 2-3 L to maintain sats at 92%. Goal sats of 88-92% with suspected COPD/emphysema. -No shortness of breath at rest -We will get to the steps O2 saturation test prior to discharge (4) Cardiomegaly: Plan: Denies any chest pain, palpitation or shortness of breath with exertion Has significant EKG changes likely chronic Echo of the heart showed: Normal LV chamber size and wall thickness, mildly reduced LV systolic function with abnormal septal wall motion consistent with interventricular conduction delay otherwise normal wall motion with EF of 45 to 50%, grade 1 diastolic dysfunction, no significant valvular pathology, small loculated anterior pericardial effusion without hemodynamic significance. Medically cleared for surgery given no cardiac symptoms Denies any cardiac symptoms (5) Tachycardia: (6) Prolonged Q-T interval on ECG: Plan: - EKG reivewed as above - Check electrolytes including magnesium, repeat EKG with am labs - Check 2D echo with RBBB, bifasicular block, and prolonged Qtc -Echo has been noted -Minimal systolic dysfunction without any cardiac symptoms -Clinically cleared for surgery with acceptable risk - Lipids unremarkable - A1C's pending - Noted hyperglycemia with glucose of 135 on admission although pt reports he has not eaten since midnight last night and drank a few sips of soda. Concerning for prediabetes. Follow glucose with routine labs - AAA - noted on CT, will need outpt follow up DVT ppx: jamison augustin subq CODE: Full code Dispo: From home, lives alone, likely to remain in the hospital x 2 night, pending surgical procedure Friday morning. Likely discharge this afternoon Admission and Anticipated Discharge Date Admission Date: July 06, 2022 Subjective 07/07/2022 The patient was seen and examined in medical telemetry unit He has been complaining of left lower quadrant and associated back pain complicated by reducible left inguinal hernia Complains to have chronic back pain with radiculopathy in the past Denies any chest pain, palpitation or shortness of breath with exertion Like to go for repair of left inguinal hernia tomorrow 07/08/2022 The patient was seen and examined in medical telemetry unit He will have left inguinal hernia repair today Denies any significant symptoms 07/09/2022 The patient was seen and examined in medical telemetry unit He is a status post robotic left inguinal hernia repair with mesh POD #1 Denies any significant pain and has been ambulating without any difficulties Surgery cleared him and he wants to go home Review of Systems Review of Systems: All systems reviewed and are unremarkable except as noted below Physical Exam Physical Exam: Sitting at the edge of the bed without any acute distress Constitutional: well developed, well nourished, + ill appearing and + obese Eyes: PERRL, conjunctivae normal, anicteric sclerae ENMT: external ear and nose normal, oropharynx normal Neck: trachea midline, no thyromegaly Respiratory: no respiratory distress Auscultation: + diminished lung sounds and + crackles (Minimal crackles at the bases) Cardiovascular: Rate/Rhythm: regular rate and regular rhythm; not tachycardic Heart Sounds: normal S1 and normal S2; no murmur Extremities: + edema (Trace edema bilaterally) Gastrointestinal (Abdomen): Inspection/Auscultation: abdomen normal to inspection, + abdomen distended and normal bowel sounds Percussion/Palpation: + abdomen tender (Minimally tender left lower quadrant and inguinal area) and abdomen soft Psychiatric: A+Ox3, euthymic affect Lymphatic: no cervical or axillary lymphadenopathy Results & Data Results & Data ([facility]) Vital Signs (Past 12 Hours) Vital Signs Temp Pulse Pulse Resp BP Pulse Ox O2 Del Method 07/09/22 11:37 36.8 C 82 18 173/77 H 94 07/09/22 08:00 Nasal Cannula 07/09/22 07:55 36.8 C 78 18 145/86 H 95 07/09/22 06:18 77 07/09/22 03:32 36.5 C 74 18 152/72 H 96 Nasal Cannula O2 Flow Rate 07/09/22 11:37 2 07/09/22 08:00 2 07/09/22 07:55 2 07/09/22 06:18 07/09/22 03:32 3 Laboratory Results Short CBC 07/09/22 Range/Units 06:38 WBC 8.46 (4.8-10.8) K/ul Hgb 14.7 (14.0-18.0) g/dl Hct 41.6 (40.1-51.0) % Plt Count 148 (130-400) K/uL BMP 07/09/22 06:38 Sodium 135 L Potassium 4.5 Chloride 100 Carbon Dioxide 28 BUN 18 Creatinine 0.94 Glucose 115 H Calcium 8.6 Medications Administered Current Inpatient Medications Acetaminophen (Acetaminophen 325 Mg Tab) 650 mg PO Q6H [facility] Stop: 08/07/22 15:59 Last Admin: 07/09/22 09:57 Dose: 650 mg Benzonatate (Benzonatate 100 Mg Capsule) 100 mg PO TID [facility] Stop: 08/05/22 20:59 Last Admin: 07/09/22 08:07 Dose: 100 mg Cephalexin HCl (Cephalexin 500 Mg Cap) 500 mg PO TID [facility] Stop: 07/11/22 21:01 Last Admin: 07/09/22 09:34 Dose: 500 mg Diphenhydramine HCl (Diphenhydramine 50 Mg/Ml Vial) 25 mg IV Q4H PRN PRN Reason: hives, itching or insomnia Stop: 08/07/22 15:42 Enoxaparin Sodium (Enoxaparin Inj 40 Mg/0.4 Ml Syr) 40 mg SQ QAM [facility] Stop: 08/06/22 08:59 Last Admin: 07/09/22 08:04 Dose: 40 mg Fluticasone Propionate (Fluticasone Propionate Na Spr 16 Gm Btl) 2 sprays NA DAILY [facility] Stop: 08/06/22 19:59 Last Admin: 07/09/22 08:03 Dose: 2 sprays Guaifenesin/Codeine Phosphate (Guaifenesin/Codeine 100mg/10mg 5ml Udc) 5 ml PO Q6H PRN PRN Reason: Cough Stop: 08/06/22 19:49 Last Admin: 07/08/22 23:02 Dose: 5 ml Ketorolac Tromethamine (Ketorolac Tromethamine 15 Mg/Ml Vial) 15 mg IV Q6H [facility] Stop: 07/13/22 15:59 Last Admin: 07/09/22 09:57 Dose: 15 mg Levalbuterol HCl (Levalbuterol Hcl 1.25 Mg/3 Ml Neb) 1.25 mg NEB Q4H PRN; Protocol PRN Reason: Shortness Of Breath Or Wheezing Stop: 08/06/22 21:58 Last Admin: 07/07/22 23:39 Dose: 1.25 mg Melatonin (Melatonin 3 Mg Tab) 3 mg PO HS PRN PRN Reason: Sleep Stop: 08/06/22 19:49 Last Admin: 07/08/22 23:02 Dose: 3 mg Miscellaneous (Remove Nicoderm Patch) 1 each N/A DAILY@0859 [facility] Stop: 08/06/22 08:58 Last Admin: 07/09/22 08:02 Dose: 1 each Morphine Sulfate (Morphine Sulfate 2 Mg/Ml Carp) 2 mg IV Q3H PRN PRN Reason: Pain (1,2,3,4,5) & Pre PT Stop: 07/22/22 15:42 Morphine Sulfate (Morphine Sulfate 4 Mg/Ml 1 Ml Carp\Vial) 4 mg IV Q3H PRN PRN Reason: Pain (6,7,8,9,10) Stop: 07/22/22 15:42 Nicotine (Nicotine 14 Mg/24 Hr Patch) 14 mg TD QAM [facility] Stop: 08/06/22 08:59 Last Admin: 07/09/22 08:03 Dose: 14 mg Oxycodone HCl (Oxycodone Hcl Ir 5 Mg Tab (Immediate Release)) 5 mg PO Q4H PRN PRN Reason: MODERATE Pain (4,5,6) & Pre PT Stop: 07/22/22 15:42 Oxycodone HCl (Oxycodone Hcl Ir 5 Mg Tab (Immediate Release)) 10 mg PO Q4H PRN PRN Reason: SEVERE Pain (7,8,9,10) Stop: 07/22/22 15:42 Polyethylene Glycol (Polyethylene (Miralax) 17 Gm Pack) 17 gm PO DAILY PRN PRN Reason: Constipation Stop: 08/05/22 18:25 Sennosides (Senna 8.6 Mg Tab) [facility] Stop: 08/06/22 08:59 Last Admin: 07/09/22 08:05 Dose: 8.6 mg Umeclidinium [place] (Umeclidinium [place] 62.5mcg/Blister 7 Puffs/Inhaler) 1 puffs INH [facility] Stop: 08/06/22 08:59 Last Admin: 07/09/22 08:03 Dose: 1 puffs
--- NOTE | 2022-07-10 07:57 | Discharge Summary ---
Date of Service July 10, 2022 Admission HPI Per Admitting Provider This is a 66 yo M without known significant PMHx and has not seen a physician in over 25 years. He is a chronic smoker of 1.5 packs of cigarettes daily x 54 years. Emphysematous changes are seen on the CXR today. Pt has had this left sided inguinal hernia for about 7-8 years where it has been small and easily retractable by himself. Late last evening he noticed it was larger and more painful. His main complaints today include that the inguinal hernia has gotten 3x larger than what it has been and was not able to urinate today. Reports he couldn't didn't eat or drink anything since last night at midnight due to pain. Trialed Aleve today without relief and since getting pain medicine his pain is 6/10 and that he feels it in his back, its essentially no different than when he presented to the ER via EMS. He uses Aleve only occasionally, otherwise does not take any medication. His left inguinal hernia has already been reduced by general surgery twice here in the ER. Pt reports he used to work for [employer] and that he has had chronic back issues due to heavy lifting. He retired recently, in January 2022. He thinks his back has been better since retiring but today feels significant pain in the lower back. 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 Social Hx: He denies any alcohol use Smokes cigarettes 1.5 ppd since 14 years old, 54 years. Use to smoke marijuana but anymore. No illicit drug use. Family Hx includes Mother: 5 years ago from breast cancer, unsure of age. Father: of CT 40 years ago at age 74 Pt is one of 8 children. Hhe is one of the middle children. His older brother of cancer 3 years ago Other brothers and sisters are alive He does keep in touch with sister, Alee, who is his support system and knows he is here. He lives alone. Admission Exam Per Admitting Provider Physical Exam: General: awake, alert, no apparent distress, + appears older than stated age, Head: Normocephalic, atraumatic ENT: PERRL, EOMI, no pharyngeal exudate, mucous membranes moist Chest: On 3 L via NC, +coarse breath sounds bilaterally with expiratory wheezing throughout Cardiac: Sinus tach with HR in the low 100s, no murmur, no JVD, normal peripheral pulses, good capillary refill Abdominal: NABS x 4 quadrants, soft, nondistended, nontender to palpation, no rebound or guarding Back: No obvious injuries, ecchymosis or point tenderness : Left inguinal hernia reduced, bulge above the inguinal ligament on left side Extremities: Normal inspection, no peripheral edema or erythema, calfs nontender to palpation Psych: Normal mood and affect Neuro: AAO x 3, strength intact bilaterally and rated 5/5, no motor deficits, speech is clear, no peripheral sensory deficits Principal Diagnosis Left Inguinal Hernia s/p repair Discharge Exam Sitting at the edge of the bed without any acute distress Constitutional well developed, well nourished, + ill appearing and + obese Eyes PERRL, conjunctivae normal, anicteric sclerae ENMT external ear and nose normal, oropharynx normal Neck trachea midline, no thyromegaly Respiratory no respiratory distress Auscultation: + diminished lung sounds and + crackles (Minimal crackles at the bases) Cardiovascular Rate/Rhythm: regular rate and regular rhythm; not tachycardic Heart Sounds: normal S1 and normal S2; no murmur Extremities: + edema (Trace edema bilaterally) Gastrointestinal (Abdomen) Inspection/Auscultation: abdomen normal to inspection, + abdomen distended and normal bowel sounds Percussion/Palpation: + abdomen tender (Minimally tender left lower quadrant and inguinal area) and abdomen soft Psychiatric A+Ox3, euthymic affect Lymphatic no cervical or axillary lymphadenopathy Discharge Data Allergies Allergy/AdvReac Type Severity Reaction Status Date / Time No Known Allergies Allergy Unverified 07/06/22 13:36 Consultations 07/06/22 17:00 ED Decision to Admit Stat Procedures Performed Operation Date: 07/08/22 08:25 Actual Procedures p Robotic Assisted Left Laparoscopic Inguinal Hernia Repair with Mesh(Left) - Adrian Beaver DO, FACS Ordered Studies 07/06/22 11:28 CT Abd and Pelvis [CT abd pelvis wo con] Stat Hospital Course (1) Inguinal hernia: -Left reducible inguinal hernia - Consulted general surgery - plan for surgical procedure on Friday, will need NPO on friday night - Continue fluids while poor PO intake, allow diet for now - Pain control with tylenol, toradol IV, dilaudid for severe pain prn. -Minimal pain in the left lower quadrant without nausea and or vomiting or any obstructive hernia -Will have robotic assisted left laparoscopic inguinal hernia repair with mesh today -Status post robotic left inguinal hernia repair with mesh POD #1 -Denies any symptoms but has minimal pain in the left inguinal area -Has been ambulating in the room and in the hallway without any difficulties -He wants to go home (2) Smoker: (3) Emphysema of lung: - Noted on CXR - Chronic smoking x 1.5 ppd x 54 years, pt declined a nicotine patch - Advised cessation at bedside - Will start Spiriva inh and xopenex nebs for wheezing to prevent further tachycardia - Would benefit from outpatient PFTs, does not wear any O2 at baseline but is requiring 2-3 L to maintain sats at 92%. Goal sats of 88-92% with suspected COPD/emphysema. -No shortness of breath at rest -We will get to the steps O2 saturation test prior to discharge (4) Cardiomegaly: Denies any chest pain, palpitation or shortness of breath with exertion Has significant EKG changes likely chronic Echo of the heart showed: Normal LV chamber size and wall thickness, mildly reduced LV systolic function with abnormal septal wall motion consistent with interventricular conduction delay otherwise normal wall motion with EF of 45 to 50%, grade 1 diastolic dysfunction, no significant valvular pathology, small loculated anterior pericardial effusion without hemodynamic significance. Medically cleared for surgery given no cardiac symptoms Denies any cardiac symptoms (5) Tachycardia: (6) Prolonged Q-T interval on ECG: - EKG reivewed as above - Check electrolytes including magnesium, repeat EKG with am labs - Check 2D echo with RBBB, bifasicular block, and prolonged Qtc -Echo has been noted -Minimal systolic dysfunction without any cardiac symptoms -Clinically cleared for surgery with acceptable risk - Lipids unremarkable - A1C's pending - Noted hyperglycemia with glucose of 135 on admission although pt reports he has not eaten since midnight last night and drank a few sips of soda. Concerning for prediabetes. Follow glucose with routine labs - AAA - noted on CT, will need outpt follow up DVT ppx: jamison augustin subq CODE: Full code Dispo: From home, lives alone, likely to remain in the hospital x 2 night, pending surgical procedure Jac morning. Likely discharge this afternoon Total Time Total Time Spent Total Time Spent (In Minutes): 35 minutes Discharge Plan Discharge Items Patient Disposition: Home - Self-Care Reason For Visit: INGUINAL HERNIA Discharge Diagnosis: left inguinal hernia Condition on Discharge: Fair Activity: Per Instructions section Lifting: No more than 10 pounds Bathing Comment: may shower; no soaking in tubs/pools Exercise/Sports: Wait until after follow-up appointment Driving/Machine Use: wait at least 1 week; no driving while taking narcotics for pain Non-emergency contact: Surgeon Call non-emergency contact if: you have any medication questions, your symptoms worsen, your pain is not controlled, your pain is concerning for you, you have a fever, your temperature is above 101.5, your wound has increased redness, your wound has increased drainage and your wound pain has increased Follow-up/Referrals: Adrian Beaver DO, FACS [Physician] - (Please call to schedule follow up in clinic within 2 weeks) Bennett Prakash DO [Primary Care Provider] - 07/15/22 11:20 am ([address] [address] ) Diet: Regular Addtl Attending Provider Instructions: Please take precautions to avoid falls Keep appointment with your healthcare providers You can try 2 extra strength Tylenol every 6 hours as needed for additional pain control. You may ice your groin on and/off alternating every 20 minutes as needed to help with pain and swelling You may purchase compressive underwear over the counter Pending Studies at Discharge: No Stand-Alone Forms: My [facility], Smoking Cessation Medications and DC Order Prescriptions: New benzonatate 100 mg Capsule 100 mg PO TID 10 Days Qty: 30 0RF cephalexin 500 mg Capsule 500 mg PO TID 2 Days Qty: 6 0RF codeine-guaifenesin [Guaiatussin AC] 10-100 mg/5 mL Liquid 5 ml PO Q6H PRN (Reason: cough) Qty: 120 0RF nicotine 7 mg/24 hr Patch 24 Hour 14 mg transdermal QAM 30 Days Qty: 30 0RF fluticasone propionate 50 mcg/actuation [place],Suspension 2 spray NA DAILY Qty: 1 0RF Incruse Ellipta 62.5 mcg/actuation Blister With Device 1 puff inhalation QAM Qty: 1 0RF Continued naproxen sodium [Aleve] 220 mg Tablet 200 mg PO DAILY PRN (Reason: Pain) Discharge Orders: Discharge Order (Routine); Ordered 07/09/22 Ordered By: Radha Hernandes Admission Data Admit Date/Time: 07/06/22 17:06 Attending Provider: Radha Hernandes Admit Provider: Paulo Rhodes Primary Care Provider: Bennett Prakash Other Providers: Paulo Rhodes Other Interventions: Discharge Summary Assessment (RN) Last Done: 07/09/22 13:52
== END 2022-07-09 15:14 | disposition home or self-care (01) | DRG 351 ==
LOC: ED 11:08 → 2N 17:06 → SUATTDRO 17:06 → 2N 18:14

== ENCOUNTER 2022-10-16 13:15 | Inpatient (IN) ==
[2022-10-16] MEDS ORDERED: SODIUM CHLORIDE 0.9% 500 ML IV SCH (13:30)
--- NOTE | 2022-10-16 13:36 | Emergency Department Note ---
Impression & Plan Syncope, Dissection of vertebral artery, Cerebellar stroke, COPD (chronic obstructive pulmonary disease), Hypertension, Closed compression fracture of L1 vertebra, Compression fx, thoracic spine ED Provider Note NAME: GISELA NUNES AGE: 67 SEX: M : 1955 ARRIVES VIA: Ambulance INFORMANT: Patient, EMS ED PROVIDER(S): Jim Lim DO CHIEF COMPLAINT: Syncope HPI: The patient is a 67-year-old male who presented to the emergency department via ambulance for an evaluation. The patient was found outside. He does last remembers going to the post office. He was walking to the post office from his primary residence. The patient states that the next thing he remembers is waking up in the ambulance. Additional history is obtained from the prehospital personnel. They state the patient was somewhat confused when they initially arrived on scene. They felt he might of been postictal. The patient is status post hernia repair some months ago. He states he does not take any medications every day. He denies having any chest pain. He denies having any difficulty breathing. He denies having any lower extremity swelling or pain. The patient did not bite his tongue. He denies have any loss of bowel or bladder continence . ROS: See above HPI for pertinent positives & negatives. A total of 10 systems reviewed and were otherwise negative. PAST MEDICAL HISTORY: See Below PAST SURGICAL HISTORY: See Below FAMILY HISTORY: See Below SOCIAL HISTORY: See Below HOME MEDICATIONS: See Below ALLERGIES: See Below VITALS: See Below PHYSICAL EXAMINATION: GENERAL: Patient is awake alert in no acute distress patient is resting comfortably and showing no signs of anxiety EYES: The conjunctivae are clear. The pupils are round and reactive. EARS, NOSE, MOUTH AND THROAT: The nose is without any evidence of any deformity. NECK: The neck is nontender and supple. RESPIRATORY: Diminished breath sounds are noted throughout. Faint wheezing was noted in both upper lung soto. There was no tachypnea or conversational dyspnea. CARDIOVASCULAR: Tachycardic rate with regular rhythm was noted. There is no definite murmur. GASTROINTESTINAL: The abdomen is soft. Abdomen is nontender. MUSCULOSKELETAL/EXTREMITIES: There is no evidence of gross deformity full range of motion is noted in the hips and shoulders. SKIN: There is no obvious evidence of any rash. There are no petechiae, pallor or cyanosis noted. NEUROLOGIC: Patient is awake alert and oriented x3 strength is symmetric patellar reflexes are 2+ bilaterally MEDICAL DECISION MAKING: The patient is a 67-year-old male who presented to the emergency department for an evaluation after having a syncopal episode. The patient admitted to feeling dizzy prior to the syncopal episode. He was very amnestic to the event. According to the prehospital personnel there may have been some postictal phase but the patient was awake and alert upon arrival to the emergency department. I discussed the patient's laboratory and radiographic studies with him. He was found to have elevated blood pressure on multiple occasions. The patient was treated with antihypertensive medication. I did discuss the findings of his CAT scan which include a vertebral artery dissection as well as an age-indeterminate lacunar infarct of the cerebellum. I am unsure if these are related to the patient's presentation today but given his comorbidities as well as findings today I do not feel the patient would be a good candidate for outpatient management. I discussed this case with the on-call hospitalist. Triage Nursing notes reviewed. Prior medical records reviewed Vital Signs: reviewed and remarkable for elevated blood pressure and tachycardia. Differential diagnosis: Vasovagal event, dehydration, infection, hypoglycemia, electrolyte abnormalities, cardiac sources, intracerebral event, pulmonary embolism, seizu re, toxicologic, neurologic, as well as other pathologies. ER treatment provided: See below Diagnostics interpreted by me: ECG: EKG was obtained in the emergency department. My interpretation is sinus tachycardia at 105 bpm. There were no PVCs noted. Right bundle branch block pattern was appreciated. This was compared to a tracing from July 07, 2022. No changes were noted. Cardiac Monitoring: An order was placed for continuous cardiac monitoring. The monitor shows a rate of 103 bpm with sinus tachycardia. Laboratory studies: As stated above and show below. Imaging studies: See below. Radiographic imaging was reviewed by myself Consultation(s): I discussed this case with Mela who is on for the [facility] hospitalist group. Past Med/Surg History Medical History Cardiomegaly Emphysema of lung Inguinal hernia Smoker Surgical History Hx of tonsillectomy S/P left inguinal hernia repair (07/08/22) Robotic Left Laparoscopic Inguinal Hernia Repair (Not Applicable) - Adrian Beaver DO, FACS Family History Mother Breast cancer Brother Cancer Social History Smoking Status: Current every day smoker Hx Alcohol Use: No Hx Substance Use: No Preferred Language: German Communication Ability: Effective Hearing Ability: Normal Glass Bead Maker Required: No Beliefs That Will Affect Care: None marital status: Single Current Living Situation: Alone current occupational status: retired current occupation: worked for [employer] and [employer] Feels Safe at Home: Yes Assistive Devices: None Allergies Allergies Allergy/AdvReac Type Severity Reaction Status Date / Time No Known Allergies Allergy Unverified 07/06/22 13:36 Home Meds Home Medications Medication Instructions Recorded Confirmed naproxen sodium 220 mg tablet 200 mg PO DAILY PRN Pain 07/06/22 07/06/22 (Aleve) Previous Rx's Medication Instructions Recorded codeine 10 mg-guaifenesin 100 mg/5 5 ml PO Q6H PRN cough #120 mL 07/09/22 mL oral liquid (Guaiatussin AC) fluticasone propionate 50 2 spray NA DAILY #1 device 07/09/22 mcg/actuation nasal spray,suspension umeclidinium 62.5 mcg/actuation 1 puff inhalation QAM #1 device 07/09/22 blister powder for inhalation (Incruse Ellipta) Results & Data (ED) Vital Signs Vital Signs - 24 hr 10/16/22 13:23 10/16/22 15:10 10/16/22 13:22 Temperature 36.9 C Temperature Source Oral Pulse Rate 103 H 107 H Pulse Rate from SpO2 Sensor 108 H Pulse Rhythm Regular Pulse Strength Normal Respiratory Rate 20 20 Respiratory Effort / Characteristics Non-Labored Spontaneous Respiratory Depth Normal Respiratory Pattern Regular Blood Pressure 182/121 H Blood Pressure Mean 141 Blood Pressure Position Sitting Pulse Oximetry 93 90 Oxygen Delivery Method Room Air Room Air Sepsis Recent Fever Within 48 Hours No Sepsis New/Unexplained Change in Mental Status N/A Sepsis Action Taken by Nursing No Action Required 10/16/22 13:30 10/16/22 14:00 10/16/22 14:30 Temperature Temperature Source Pulse Rate 105 H 101 H Pulse Rate from SpO2 Sensor 105 H 98 H Pulse Rhythm Pulse Strength Respiratory Rate 27 H 16 Respiratory Effort / Characteristics Respiratory Depth Respiratory Pattern Blood Pressure 179/107 H Blood Pressure Mean 131 Blood Pressure Position Pulse Oximetry 93 92 Oxygen Delivery Method Room Air Room Air Sepsis Recent Fever Within 48 Hours Sepsis New/Unexplained Change in Mental Status Sepsis Action Taken by Nursing 10/16/22 14:30 10/16/22 15:00 10/16/22 15:57 Temperature Temperature Source Pulse Rate 94 H 93 H Pulse Rate from SpO2 Sensor 95 H 94 H 92 H Pulse Rhythm Pulse Strength Respiratory Rate 17 16 Respiratory Effort / Characteristics Respiratory Depth Respiratory Pattern Blood Pressure Blood Pressure Mean Blood Pressure Position Pulse Oximetry 95 93 96 Oxygen Delivery Method Room Air Room Air Room Air Sepsis Recent Fever Within 48 Hours Sepsis New/Unexplained Change in Mental Status Sepsis Action Taken by Nursing 10/16/22 16:00 10/16/22 16:00 10/16/22 16:30 Temperature Temperature Source Pulse Rate 92 H Pulse Rate from SpO2 Sensor 93 H Pulse Rhythm Pulse Strength Respiratory Rate 14 Respiratory Effort / Characteristics Respiratory Depth Respiratory Pattern Blood Pressure 174/123 H 159/96 H Blood Pressure Mean 140 117 Blood Pressure Position Pulse Oximetry 95 Oxygen Delivery Method Room Air Sepsis Recent Fever Within 48 Hours Sepsis New/Unexplained Change in Mental Status Sepsis Action Taken by Nursing 10/16/22 16:30 Temperature Temperature Source Pulse Rate 84 Pulse Rate from SpO2 Sensor 86 Pulse Rhythm Pulse Strength Respiratory Rate 18 Respiratory Effort / Characteristics Respiratory Depth Respiratory Pattern Blood Pressure Blood Pressure Mean Blood Pressure Position Pulse Oximetry 95 Oxygen Delivery Method Room Air Sepsis Recent Fever Within 48 Hours Sepsis New/Unexplained Change in Mental Status Sepsis Action Taken by [facility] Medications Current Medication List: was personally reviewed by me Laboratory Data Attestation: I reviewed the patient's lab results. 10/16/22 14:37 10/16/22 14:37 Lab Results 10/16/22 10/16/22 10/16/22 Range/Units 14:04 14:04 14:04 WBC RBC Hgb Hct MCV MCH MCHC RDW Std Deviation RDW Coeff of Zeinab Plt Count MPV Immature Gran % (Auto) Neut % (Auto) Lymph % (Auto) Barbour % (Auto) Eos % (Auto) Baso % (Auto) Neut # (Auto) Lymph # (Auto) Barbour # (Auto) Eos # (Auto) Baso # (Auto) Immature Gran # (Auto) Absolute Nucleated RBC Nucleated RBC % (auto) Neutrophils % (Manual) Band Neutrophils % Lymphocytes % (Manual) Prolymphocyte % Reactive Lymphs % (Man) Monocytes % (Manual) Eosinophils % (Manual) Basophils % (Manual) Metamyelocytes % (Man) Myelocytes % (Man) Promyelocytes % (Man) Blast Cells % (Manual) Plasma Cell % (Manual) Other Cells % Nucleated RBC % Neutrophils # (Manual) Band Neutrophils # Total Absolute Neuts Lymphocytes # (Manual) Prolymphocyte # Reactive Lymphs # Total Abs Lymphocytes Monocytes # (Manual) Eosinophils # (Manual) Basophils # (Manual) Metamyelocytes # (Man) Myelocytes # (Manual) Promyelocytes # (Man) Blast Cells # (Man) Plasma Cell # (Manual) Other Cells # Nucleated RBCs # (Man) Hypersegmented Neuts Hyposegmented Neuts Hypogranular Neuts Large Granular Lymphs # Lrg Granular Lymphs Hairy Cells Smudge Cells Toxic Granulation Toxic Vacuolation Dohle Bodies Joe Rods Platelet Estimate Hypogranular Platelets Clumped Platelets Giant Platelets Platelet Satelliting RBC Morphology Polychromasia Hypochromasia Poikilocytosis Basophilic Stippling Anisocytosis Microcytosis Macrocytosis Spherocytes Pappenheimer Bodies Sickle Cells Target Cells Tear Drop Cells Ovalocytes Stomatocytes Mattson-[place] Bodies Echinocytes Acanthocytes (Spur) Rouleaux RBC Agglutinates Schistocytes Sezary Cell PT Cancelled INR Cancelled APTT Cancelled PTT Ratio Cancelled D-Dimer Cancelled Sodium 134 L (136-145) mmol/L Potassium TNP Chloride 101 (98-107) mmol/L Carbon Dioxide 24 (21-32) mmol/L Anion Gap 9 (3-11) BUN 22 (6-23) mg/dl Creatinine 0.90 (0.6-1.4) mg/dl Est Cr Clr Drug Dosing 89.0 ml/min Est GFR ( Amer) 102.1 ml/min Est GFR (Non-Af Amer) 88.1 ml/min BUN/Creatinine Ratio 24.4 H (10-20) Glucose 119 H (70-99(Fasting)) mg/dl Calcium 9.2 (8.5-10.1) mg/dl Magnesium 2.1 (1.7-2.4) mg/dl Total Bilirubin 0.4 (0.2-1.0) mg/dl AST TNP ALT 13 (7-52) U/L Alkaline Phosphatase 88 (34-104) U/L Total Creatine Kinase 61 (30-223) U/L Troponin I High Sens 8.5 (0-20) pg/ml Total Protein 7.2 (6.0-8.3) gm/dl Albumin 3.9 (3.4-5.0) gm/dl Globulin 3.3 (2.5-4.0) gm/dl Albumin/Globulin Ratio 1.2 (0.9-2) Lipase 4 L (11-82) U/L Blood Parasites ID 10/16/22 10/16/22 10/16/22 Range/Units 14:04 14:37 14:37 WBC Cancelled 10.61 RBC Cancelled 5.21 Hgb Cancelled 16.1 Hct Cancelled 46.1 MCV Cancelled 88.5 MCH Cancelled 30.9 MCHC Cancelled 34.9 RDW Std Deviation Cancelled 40.3 RDW Coeff of Zeinab Cancelled 12.5 Plt Count Cancelled 149 MPV Cancelled 9.7 Immature Gran % (Auto) Cancelled 0.6 Neut % (Auto) Cancelled 86.8 Lymph % (Auto) Cancelled 7.3 Barbour % (Auto) Cancelled 4.7 Eos % (Auto) Cancelled 0.4 Baso % (Auto) Cancelled 0.2 Neut # (Auto) Cancelled 9.22 H Lymph # (Auto) Cancelled 0.77 L Barbour # (Auto) Cancelled 0.50 Eos # (Auto) Cancelled 0.04 Baso # (Auto) Cancelled 0.02 Immature Gran # (Auto) Cancelled 0.06 H Absolute Nucleated RBC Cancelled Nucleated RBC % (auto) Cancelled Neutrophils % (Manual) Cancelled Band Neutrophils % Cancelled Lymphocytes % (Manual) Cancelled Prolymphocyte % Cancelled Reactive Lymphs % (Man) Cancelled Monocytes % (Manual) Cancelled Eosinophils % (Manual) Cancelled Basophils % (Manual) Cancelled Metamyelocytes % (Man) Cancelled Myelocytes % (Man) Cancelled Promyelocytes % (Man) Cancelled Blast Cells % (Manual) Cancelled Plasma Cell % (Manual) Cancelled Other Cells % Cancelled Nucleated RBC % Cancelled Neutrophils # (Manual) Cancelled Band Neutrophils # Cancelled Total Absolute Neuts Cancelled Lymphocytes # (Manual) Cancelled Prolymphocyte # Cancelled Reactive Lymphs # Cancelled Total Abs Lymphocytes Cancelled Monocytes # (Manual) Cancelled Eosinophils # (Manual) Cancelled Basophils # (Manual) Cancelled Metamyelocytes # (Man) Cancelled Myelocytes # (Manual) Cancelled Promyelocytes # (Man) Cancelled Blast Cells # (Man) Cancelled Plasma Cell # (Manual) Cancelled Other Cells # Cancelled Nucleated RBCs # (Man) Cancelled Hypersegmented Neuts Cancelled Hyposegmented Neuts Cancelled Hypogranular Neuts Cancelled Large Granular Lymphs Cancelled # Lrg Granular Lymphs Cancelled Hairy Cells Cancelled Smudge Cells Cancelled Toxic Granulation Cancelled Toxic Vacuolation Cancelled Dohle Bodies Cancelled Joe Rods Cancelled Platelet Estimate Cancelled Hypogranular Platelets Cancelled Clumped Platelets Cancelled Giant Platelets Cancelled Platelet Satelliting Cancelled RBC Morphology Cancelled Polychromasia Cancelled Hypochromasia Cancelled Poikilocytosis Cancelled Basophilic Stippling Cancelled Anisocytosis Cancelled Microcytosis Cancelled Macrocytosis Cancelled Spherocytes Cancelled Pappenheimer Bodies Cancelled Sickle Cells Cancelled Target Cells Cancelled Tear Drop Cells Cancelled Ovalocytes Cancelled Stomatocytes Cancelled Mattson-[place] Bodies Cancelled Echinocytes Cancelled Acanthocytes (Spur) Cancelled Rouleaux Cancelled RBC Agglutinates Cancelled Schistocytes Cancelled Sezary Cell Cancelled PT 11.1 INR 1.0 APTT 26.8 PTT Ratio 1.0 D-Dimer 4030 H* Sodium (136-145) mmol/L Potassium Chloride (98-107) mmol/L Carbon Dioxide (21-32) mmol/L Anion Gap (3-11) BUN (6-23) mg/dl Creatinine (0.6-1.4) mg/dl Est Cr Clr Drug Dosing ml/min Est GFR ( Amer) ml/min Est GFR (Non-Af Amer) ml/min BUN/Creatinine Ratio (10-20) Glucose (70-99(Fasting)) mg/dl Calcium (8.5-10.1) mg/dl Magnesium (1.7-2.4) mg/dl Total Bilirubin (0.2-1.0) mg/dl AST ALT (7-52) U/L Alkaline Phosphatase (34-104) U/L Total Creatine Kinase (30-223) U/L Troponin I High Sens (0-20) pg/ml Total Protein (6.0-8.3) gm/dl Albumin (3.4-5.0) gm/dl Globulin (2.5-4.0) gm/dl Albumin/Globulin Ratio (0.9-2) Lipase (11-82) U/L Blood Parasites ID Cancelled 10/16/22 Range/Units 14:37 WBC RBC Hgb Hct MCV MCH MCHC RDW Std Deviation RDW Coeff of Zeinab Plt Count MPV Immature Gran % (Auto) Neut % (Auto) Lymph % (Auto) Barbour % (Auto) Eos % (Auto) Baso % (Auto) Neut # (Auto) Lymph # (Auto) Barbour # (Auto) Eos # (Auto) Baso # (Auto) Immature Gran # (Auto) Absolute Nucleated RBC Nucleated RBC % (auto) Neutrophils % (Manual) Band Neutrophils % Lymphocytes % (Manual) Prolymphocyte % Reactive Lymphs % (Man) Monocytes % (Manual) Eosinophils % (Manual) Basophils % (Manual) Metamyelocytes % (Man) Myelocytes % (Man) Promyelocytes % (Man) Blast Cells % (Manual) Plasma Cell % (Manual) Other Cells % Nucleated RBC % Neutrophils # (Manual) Band Neutrophils # Total Absolute Neuts Lymphocytes # (Manual) Prolymphocyte # Reactive Lymphs # Total Abs Lymphocytes Monocytes # (Manual) Eosinophils # (Manual) Basophils # (Manual) Metamyelocytes # (Man) Myelocytes # (Manual) Promyelocytes # (Man) Blast Cells # (Man) Plasma Cell # (Manual) Other Cells # Nucleated RBCs # (Man) Hypersegmented Neuts Hyposegmented Neuts Hypogranular Neuts Large Granular Lymphs # Lrg Granular Lymphs Hairy Cells Smudge Cells Toxic Granulation Toxic Vacuolation Dohle Bodies Joe Rods Platelet Estimate Hypogranular Platelets Clumped Platelets Giant Platelets Platelet Satelliting RBC Morphology Polychromasia Hypochromasia Poikilocytosis Basophilic Stippling Anisocytosis Microcytosis Macrocytosis Spherocytes Pappenheimer Bodies Sickle Cells Target Cells Tear Drop Cells Ovalocytes Stomatocytes Mattson-[place] Bodies Echinocytes Acanthocytes (Spur) Rouleaux RBC Agglutinates Schistocytes Sezary Cell PT INR APTT PTT Ratio D-Dimer Sodium (136-145) mmol/L Potassium 4.0 Chloride (98-107) mmol/L Carbon Dioxide (21-32) mmol/L Anion Gap (3-11) BUN (6-23) mg/dl Creatinine (0.6-1.4) mg/dl Est Cr Clr Drug Dosing ml/min Est GFR ( Amer) ml/min Est GFR (Non-Af Amer) ml/min BUN/Creatinine Ratio (10-20) Glucose (70-99(Fasting)) mg/dl Calcium (8.5-10.1) mg/dl Magnesium (1.7-2.4) mg/dl Total Bilirubin (0.2-1.0) mg/dl AST 15 ALT (7-52) U/L Alkaline Phosphatase (34-104) U/L Total Creatine Kinase (30-223) U/L Troponin I High Sens (0-20) pg/ml Total Protein (6.0-8.3) gm/dl Albumin (3.4-5.0) gm/dl Globulin (2.5-4.0) gm/dl Albumin/Globulin Ratio (0.9-2) Lipase (11-82) U/L Blood Parasites ID Administered Medications Discontinued Medications Sodium Chloride (Nss) 500 mls @ 999 mls/hr IV .Q31M CALVIN Stop: 10/16/22 14:00 Last Admin: 10/16/22 15:56 Dose: 999 mls/hr Documented By: [id number] Ioversol (Optiray 320 500ml) 109 ml IV ONCE ONE Stop: 10/16/22 15:36 Last Admin: 10/16/22 15:35 Dose: 109 ml Documented By: LIAN Labetalol HCl (Labetalol Hcl Iv 5 Mg/Ml 20ml) 10 mg IV NOW STA Stop: 10/16/22 16:05 Last Admin: 10/16/22 16:23 Dose: 10 mg Documented By: [id number] Co-signed By: LOCATED [facility]IN [facility] Imaging Data Radiologist's Impression: Cervical Spine CT 10/16/22 13:[address] DOSE: 1065.57 mGy.cm HISTORY: syncope TECHNIQUE: Multiaxial CT images of the cervical spine were performed and reformatted in the sagittal and coronal plane without the use of contrast. A dose lowering technique was utilized adhering to the principles of ALARA. COMPARISON: None. FINDINGS: No fractures. No subluxation. Prevertebral soft tissues and the C1-C2 interval are intact. Left apical lucency appears to be secondary to a large bulla. No definite pneumothorax. Emphysema is noted IMPRESSION: No fractures within the cervical spine. ACT 112: Negative or not required by law. Electronically signed by: Davin Bundy M.D. 10/16/2022 2:34 PM Chest X-Ray 10/16/22 13:30 XR chest 1V portable CLINICAL HISTORY: Syncope. COMPARISON STUDY: Chest radiograph July 06, 2022. FINDINGS: Severe upper lobe predominant bullous emphysema is again noted. No pneumothorax or pleural effusion is present. There is no consolidation. No evidence for pulmonary edema. Cardiomediastinal silhouette is stable. IMPRESSION: No acute cardiopulmonary findings. Emphysema. ACT 112: Negative or not required by law. Electronically signed by: Sonny Echavarria M.D. 10/16/2022 1:[address] 10/16/22 13:30 CT OF THE HEAD WITHOUT CONTRAST CLINICAL HISTORY: Syncope. COMPARISON STUDY: No previous studies for comparison. TECHNIQUE: Helical axial images of the head were obtained without IV contrast. Automated exposure control was utilized for the study. A dose lowering technique was utilized adhering to the principles of ALARA. FINDINGS: No acute intracranial hemorrhage, midline shift or mass effect is present. Ventricular system is normal. Basal cisterns are patent. There are no extra-axial collections. A 9 mm hypodensity within the right cerebellar hemisphere on axial image 10 of 32 is noted. There are no findings to suggest acute dural sinus thrombosis or acute territorial infarct. There is no acute calvarial fracture. Mild secretions within the right maxillary sinus are present. IMPRESSION: 1. No acute intracranial hemorrhage or mass effect. 2. 9 mm hypodensity within the right cerebellar hemisphere. This represents an age indeterminate lacunar infarct. ACT 112: Negative or not required by law. Electronically signed by: Sonny Echavarria M.D. 10/16/2022 2:46 PM Chest CTA 10/16/22 15:03 CHEST CTA for PULMONARY ARTERIES CT DOSE: 913.77 mGy.cm HISTORY: Confusion. Dizziness. TECHNIQUE: Multiaxial CT images of the chest were performed following the intravenous administration of contrast to evaluate the pulmonary arteries. Maximal intensity projection images were also obtained. A dose lowering techniq ue was utilized adhering to the principles of ALARA. COMPARISON STUDY: None. FINDINGS: Subacute mild superior endplate compression fractures at T6 and T7. No associated retropulsion. There is a subacute moderate superior endplate compression fracture at L1 demonstrating 5 mm of retropulsion the posterior superior corner with moderate central canal narrowing at this level. Limited views of the upper abdomen demonstrate a normal liver and spleen. Mild thickening of the adrenal glands is likely age-related. Mild thickening and fat stranding at the gastroesophageal junction. This is best seen image 83. A 2.5 cm hypodense lesion within the left kidney favors a cyst. The thyroid gland enhances normally. No pleural or pericardial effusions. No mediastinal or hilar lymphadenopathy. The heart is normal in size. Normal caliber thoracic aorta with no evidence for a dissection. No filling defects within the pulmonary arteries to suggest a pulmonary embolus. No pneumothorax. Severe bullous emphysema seen within the lungs. Dominant left apical bulla measures 8.8 cm. Trace mucoid material within the trachea. Mild central bronchial wall thickening is noted. Mild dependent changes seen at the lung bases. No focal lung consolidations to suggest a pneumonia. No evidence for pulmonary edema. IMPRESSION: 1. No evidence for a pulmonary embolus. 2. Severe bullous emphysema. 3. Mild central bronchial wall thickening favors a chronic bronchitis. 4. Patchy groundglass densities the lung bases favor dependent change. Otherwise, no focal lung consolidations to suggest a pneumonia. 5. Focal thickening and mild fat stranding at the gastroesophageal junction. Follow-up nonemergent endoscopy recommended to exclude the possibility of underlying gastroesophageal mass.. 6. Subacute moderate superior endplate compression fracture at L1 demonstrating 5 mm of retropulsion and moderate central canal narrowing at this level. 7. Subacute mild superior endplate compression fractures at T6 and T7 without significant retropulsion. ACT 112: Positive. There are findings on this exam that require communication between the performing entity and the patient following Patient Test Result Information Act ([place] Act 112) guidelines. Electronically signed by: Davin Bundy M.D. 10/16/2022 4:43 PM Head CTA 10/16/22 15:03 CTA ANGIOGRAPHY OF THE HEAD CLINICAL HISTORY: Stroke. Confusion. Dizziness. COMPARISON STUDY: Head CT performed earlier today. TECHNIQUE: Helical axial images of the head were obtained following uneventful intravenous administration of 109 cc of Optiray. Sagittal and coronal reconstructions were viewed as well as maximal intensity projections on an independent 3-D workstation. Automated exposure control was utilized for the study. A dose lowering technique was utilized adhering to the principles of ALARA. FINDINGS: There are secretions within the right maxillary sinus. A 9 mm age- indeterminate lacunar infarct within the right cerebellar hemisphere is noted. Ventricular system is unremarkable. Basal cisterns are patent. No acute hemor rhage is identified on this contrast enhanced exam. There is moderate plaque within the bilateral cavernous carotids without stenosis. There is no central vessel occlusion. There is no intracranial aneurysm. The left vertebral artery is dominant. There is moderate plaque within the intracranial portion of the left vertebral artery which results in 30% stenosis. The basilar artery is patent. The bilateral posterior cerebral arteries are patent. Major dural sinuses are patent. IMPRESSION: 1. No central vessel occlusion. No intracranial aneurysm. 2. 30% stenosis of the intracranial portion of the left vertebral artery. 3. 9 mm age-indeterminate lacunar infarct within the right cerebellar hemisphere. ACT 112: Negative or not required by law. Electronically signed by: Sonny Echavarria M.D. 10/16/2022 3:50 PM Neck CTA 10/16/22 15:03 CT ANGIOGRAM OF THE NECK CLINICAL HISTORY: Stroke COMPARISON STUDY: No priors. TECHNIQUE: Following the IV administration of 109 of Optiray 320, CT angiogram of the neck was performed from the aortic arch to the skull base. Images are reviewed in the axial, sagittal, and coronal planes. 3-D MIPS images are created and assessed. IV contrast was administered without complication. All measurements were calculated based on NASCET criteria. A dose lowering tech nique was utilized adhering to the principles of ALARA. FINDINGS: Thoracic aorta: There is atherosclerotic calcification of the thoracic aorta. Visualized portions of the thoracic aorta are normal in caliber. The aortic arch demonstrates standard 3-vessel anatomy. Right carotid arterial system: The right common carotid artery is widely patent, as are the right internal and external carotid arteries. Calcified plaque is noted in the carotid bulb. Left carotid arterial system: The left common carotid artery is widely patent, as are the left internal and external carotid arteries. Calcified plaque is noted in the carotid bulb. Vertebral arteries: There is at least moderate stenosis at the origin of both vertebral arteries. There is a short segment dissection within the mid left vertebral artery at the level of C5 seen on axial image #111. The vessel is patent distally. The right vertebral artery is clear. Subclavian arteries: Widely patent bilaterally. Intracranial vasculature: The visualized intracranial vessels at the skull base are patent. Jugular veins: Widely patent bilaterally. Brain parenchyma: Small chronic appearing lacunar infarct is noted in the right cerebellar hemisphere. The visualized brain parenchyma the skull base is otherwise within normal limits. Lung apices: There is advanced emphysematous change with large apical bullae. Soft tissues: The visualized pharyngeal soft tissues are normal in appearance noting angiographic phase technique. The oropharyngeal airway appears widely patent. The salivary and thyroid glands are normal in appearance. No cervical lymphadenopathy is seen. Skeletal structures: The skeletal structures are osteopenic. The visualized calvarium at the skull base appears intact. The imaged cervical spine is maintained noting multilevel spondylosis. No lytic or blastic lesion is seen. Sinuses and mastoids: There is mild mucosal thickening within the maxillary antra. Secretions are seen on the right. The mastoid air cells are well pneumatized. IMPRESSION: 1. There is an age indeterminate short segment dissection within the mid left vertebral artery. The vessel is patent distally and this is of indeterminant acute significance. 2. There is at least moderate stenosis at the origin of both vertebral arteries. 3. The carotid arteries are widely patent bilaterally. 4. Advanced emphysema. ACT 112: Negative or not required by law. Electronically signed by: Gerardo Alcantar M.D. 10/16/2022 4:09 PM Discharge Plan Visit Data Chief Complaint: Illness Stated Complaint: SYNCOPE, CONFUSION ED Provider: Jim Lim Discharge Problem: Syncope, Dissection of vertebral artery, Cerebellar stroke, COPD (chronic obstructive pulmonary disease), Hypertension, Closed compression fracture of L1 vertebra, Compression fx, thoracic spine Patient Disposition: Being Evaluated by Hospitalist Forms Stand Alone Forms: My [facility] Prescriptions Prescriptions: No Action naproxen sodium [Aleve] 220 mg Tablet 200 mg PO DAILY PRN (Reason: Pain) codeine-guaifenesin [Guaiatussin AC] 10-100 mg/5 mL Liquid 5 ml PO Q6H PRN (Reason: cough) Qty: 120 0RF fluticasone propionate 50 mcg/actuation [place],Suspension 2 spray NA DAILY Qty: 1 0RF Incruse Ellipta 62.5 mcg/actuation Blister With Device 1 puff inhalation QAM Qty: 1 0RF Referrals Referrals: Bennett Prakash DO [Outside Practitioners] - : Syncope Qualifiers: Syncope type: unspecified Qualified Code(s): R55 - Syncope and collapse COPD (chronic obstructive pulmonary disease) Qualifiers: COPD type: unspecified COPD Qualified Code(s): J44.9 - Chronic obstructive pulmonary disease, unspecified Hypertension Qualifiers: Hypertension type: unspecified Qualified Code(s): I10 - Essential (primary) hypertension Closed compression fracture of L1 vertebra Qualifiers: Encounter type: initial encounter Qualified Code(s): S32.010A - Wedge compression fracture of first lumbar vertebra, initial encounter for closed fracture Compression fx, thoracic spine Qualifiers: Encounter type: initial encounter Thoracic vertebra fracture level: T7 Qualified Code(s): S22.060A - Wedge compression fracture of T7-T8 vertebra, initial encounter for closed fracture
--- NOTE | 2022-10-16 14:00 | XRay Report ---
XR chest 1V portable CLINICAL HISTORY: Syncope. COMPARISON STUDY: Chest radiograph July 06, 2022. FINDINGS: Severe upper lobe predominant bullous emphysema is again noted. No pneumothorax or pleural effusion is present. There is no consolidation. No evidence for pulmonary edema. Cardiomediastinal si lhouette is stable. IMPRESSION: No acute cardiopulmonary findings. Emphysema. ACT 112: Negative or not required by law. Electronically signed by: Sonny Echavarria M.D. 10/16/2022 1:59 PM
--- NOTE | 2022-10-16 14:36 | CT Scan Report ---
CERVICAL SPINE CT CT DOSE: 1065.57 mGy.cm HISTORY: syncope TECHNIQUE: Multiaxial CT images of the cervical spine were performed and reformatted in the sagittal and coronal plane without the use of contrast. A dose lowering technique was utilized adhering to th e principles of ALARA. COMPARISON: None. FINDINGS: No fractures. No subluxation. Prevertebral soft tissues and the C1-C2 interval are intact. Left apical lucency appears to be secondary to a large bulla. No definite pneumothorax. Emphysema is noted IMPRESSION: No fractures within the cervical spine. ACT 112: Negative or not required by law. Electronically signed by: Davin Bundy M.D. 10/16/2022 2:34 PM
[2022-10-16 14:45] LABS: Alanine Aminotransferase 13 U/L (7-52); Albumin Globulin Ratio 1.2 (0.9-2); Albumin Level 3.9 gm/dl (3.4-5.0); Alkaline Phosphatase 88 U/L (34-104); Anion Gap 9 (3-11); BUN Creatinine Ratio 24.4 (10-20); Bilirubin,Total 0.4 mg/dl (0.2-1.0); Blood Urea Nitrogen 22 mg/dl (6-23); Calcium 9.2 mg/dl (8.5-10.1); Carbon Dioxide 24 mmol/L (21-32); Chloride 101 mmol/L (98-107); Creatine Kinase 61 U/L (30-223); Est GFR (African American) 102.1 ml/min; Est GFR (Non-African American) 88.1 ml/min; Globulin 3.3 gm/dl (2.5-4.0); Glucose 119 mg/dl (70-99(Fasting)); Lipase 4 U/L (11-82); Magnesium 2.1 mg/dl (1.7-2.4); Sodium 134 mmol/L (136-145); Total Protein 7.2 gm/dl (6.0-8.3)
--- NOTE | 2022-10-16 14:47 | CT Scan Report ---
CT OF THE HEAD WITHOUT CONTRAST CLINICAL HISTORY: Syncope. COMPARISON STUDY: No previous studies for comparison. TECHNIQUE: Helical axial images of the head were obtained without IV contrast. Automated exposure con trol was utilized for the study. A dose lowering technique was utilized adhering to the principles o f ALARA. FINDINGS: No acute intracranial hemorrhage, midline shift or mass effect is present. Ventricular syst em is normal. Basal cisterns are patent. There are no extra-axial collections. A 9 mm hypodensity wit hin the right cerebellar hemisphere on axial image 10 of 32 is noted. There are no findings to sugges t acute dural sinus thrombosis or acute territorial infarct. There is no acute calvarial fracture. Mi ld secretions within the right maxillary sinus are present. IMPRESSION: 1. No acute intracranial hemorrhage or mass effect. 2. 9 mm hypodensity within the right cerebellar hemisphere. This represents an age indeterminate lacu yazan infarct. ACT 112: Negative or not required by law. Electronically signed by: Sonny Echavarria M.D. 10/16/2022 2:46 PM
[2022-10-16 14:48] LABS: Troponin I High Sensitivity 8.5 pg/ml (0-20)
[2022-10-16 14:49] LABS: Basophils # (auto) 0.02 K/uL (0-0.2); Basophils % (auto) 0.2 %; Eosinophils # (auto) 0.04 K/uL (0-0.50); Eosinophils % (auto) 0.4 %; Hematocrit (blood only) 46.1 % (40.1-51.0); Hemoglobin 16.1 g/dl (14.0-18.0); Immature Granulocytes # (auto) 0.06 K/uL (0.00-0.02); Immature Granulocytes % (auto) 0.6 %; Lymphocytes # (auto) 0.77 K/uL (1.2-3.4); Lymphocytes % (auto) 7.3 %; Mean Corpuscular Hemoglobin 30.9 pg (25.0-34.0); Mean Corpuscular Hgb Conc 34.9 g/dL (32.0-36.0); Mean Corpuscular Volume 88.5 fL (80.0-100.0); Mean Platelet Volume 9.7 fL (9.4-12.4); Monocytes % (auto) 4.7 %; Neutrophils # (auto) 9.22 K/uL (1.4-6.5); Neutrophils % (auto) 86.8 %; Platelet Count 149 K/uL (130-400); RDW Coefficient of Variation 12.5 % (11.5-14.5); RDW Standard Deviation 40.3 fL (36.4-46.3); Red Blood Count 5.21 M/uL (4.63-6.08); White Blood Count 10.61 K/ul (4.8-10.8)
[2022-10-16 15:01] LABS: Partial Thromboplastin Time 26.8 Seconds (21.0-31.0); Prothrombin Time 11.1 Seconds (9.0-12.0)
[2022-10-16 15:04] LABS: D Dimer 4030 ug/L FEU (0-500)
[2022-10-16] MEDS ORDERED: OPTIRAY 320 500ml IV ONE (15:35)
--- NOTE | 2022-10-16 15:52 | CT Scan Report ---
CTA ANGIOGRAPHY OF THE HEAD CLINICAL HISTORY: Stroke. Confusion. Dizziness. COMPARISON STUDY: Head CT performed earlier today. TECHNIQUE: Helical axial images of the head were obtained following uneventful intravenous administr ation of 109 cc of Optiray. Sagittal and coronal reconstructions were viewed as well as maximal inten sity projections on an independent 3-D workstation. Automated exposure control was utilized for the study. A dose lowering technique was utilized adhering to the principles of ALARA. FINDINGS: There are secretions within the right maxillary sinus. A 9 mm age-indeterminate lacunar inf arct within the right cerebellar hemisphere is noted. Ventricular system is unremarkable. Basal ciste rns are patent. No acute hemorrhage is identified on this contrast enhanced exam. There is moderate p laque within the bilateral cavernous carotids without stenosis. There is no central vessel occlusion. There is no intracranial aneurysm. The left vertebral artery is dominant. There is moderate plaque w ithin the intracranial portion of the left vertebral artery which results in 30% stenosis. The basila r artery is patent. The bilateral posterior cerebral arteries are patent. Major dural sinuses are pat ent. IMPRESSION: 1. No central vessel occlusion. No intracranial aneurysm. 2. 30% stenosis of the intracranial portion of the left vertebral artery. 3. 9 mm age-indeterminate lacunar infarct within the right cerebellar hemisphere. ACT 112: Negative or not required by law. Electronically signed by: Sonny Echavarria M.D. 10/16/2022 3:50 PM
--- NOTE | 2022-10-16 16:01 | Electrocardiogram Report ---
Test Reason : Blood Pressure : / mmHG Vent. Rate : 105 BPM Atrial Rate : 105 BPM P-R Int : 164 ms QRS Dur : 142 ms QT Int : 386 ms P-R-T Axes : 055 -63 028 degrees QTc Int : 510 ms Poor data quality, interpretation may be adversely affected Sinus tachycardia Right bundle branch block Left anterior fascicular block Bifascicular block Abnormal ECG When compared with ECG of 07-JUL-2022 05:49, Premature ventricular complexes are no longer Present Confirmed by Yasmani Street ([id number]) on 10/16/2022 4:01:39 PM Referred By: REFERRED SELF Confirmed By:Yasmani Street
[2022-10-16] MEDS ORDERED: LABETALOL HCL IV 5 MG/ML 20ML IV STA (16:04)
--- NOTE | 2022-10-16 16:10 | CT Scan Report ---
CT ANGIOGRAM OF THE NECK CLINICAL HISTORY: Stroke COMPARISON STUDY: No priors. TECHNIQUE: Following the IV administration of 109 of Optiray 320, CT angiogram of the neck was perfor med from the aortic arch to the skull base. Images are reviewed in the axial, sagittal, and coronal p lanes. 3-D MIPS images are created and assessed. IV contrast was administered without complication. A ll measurements were calculated based on NASCET criteria. A dose lowering technique was utilized adh ering to the principles of ALARA. FINDINGS: Thoracic aorta: There is atherosclerotic calcification of the thoracic aorta. Visualized portions of the thoracic aorta are normal in caliber. The aortic arch demonstrates standard 3-vessel anatomy. Right carotid arterial system: The right common carotid artery is widely patent, as are the right int ernal and external carotid arteries. Calcified plaque is noted in the carotid bulb. Left carotid arterial system: The left common carotid artery is widely patent, as are the left technical internship al and external carotid arteries. Calcified plaque is noted in the carotid bulb. Vertebral arteries: There is at least moderate stenosis at the origin of both vertebral arteries. The re is a short segment dissection within the mid left vertebral artery at the level of C5 seen on axia l image #111. The vessel is patent distally. The right vertebral artery is clear. Subclavian arteries: Widely patent bilaterally. Intracranial vasculature: The visualized intracranial vessels at the skull base are patent. Jugular veins: Widely patent bilaterally. Brain parenchyma: Small chronic appearing lacunar infarct is noted in the right cerebellar hemisphere . The visualized brain parenchyma the skull base is otherwise within normal limits. Lung apices: There is advanced emphysematous change with large apical bullae. Soft tissues: The visualized pharyngeal soft tissues are normal in appearance noting angiographic pha se technique. The oropharyngeal airway appears widely patent. The salivary and thyroid glands are nor mal in appearance. No cervical lymphadenopathy is seen. Skeletal structures: The skeletal structures are osteopenic. The visualized calvarium at the skull ba se appears intact. The imaged cervical spine is maintained noting multilevel spondylosis. No lytic or blastic lesion is seen. Sinuses and mastoids: There is mild mucosal thickening within the maxillary antra. Secretions are see n on the right. The mastoid air cells are well pneumatized. IMPRESSION: 1. There is an age indeterminate short segment dissection within the mid left vertebral artery. The v essel is patent distally and this is of indeterminant acute significance. 2. There is at least moderate stenosis at the origin of both vertebral arteries. 3. The carotid arteries are widely patent bilaterally. 4. Advanced emphysema. ACT 112: Negative or not required by law. Electronically signed by: Gerardo Alcantar M.D. 10/16/2022 4:09 PM
--- NOTE | 2022-10-16 16:46 | CT Scan Report ---
CHEST CTA for PULMONARY ARTERIES CT DOSE: 913.77 mGy.cm HISTORY: Confusion. Dizziness. TECHNIQUE: Multiaxial CT images of the chest were performed following the intravenous administration of contrast to evaluate the pulmonary arteries. Maximal intensity projection images were also obtaine d. A dose lowering technique was utilized adhering to the principles of ALARA. COMPARISON STUDY: None. FINDINGS: Subacute mild superior endplate compression fractures at T6 and T7. No associated retropuls ion. There is a subacute moderate superior endplate compression fracture at L1 demonstrating 5 mm of retropulsion the posterior superior corner with moderate central canal narrowing at this level. Limit ed views of the upper abdomen demonstrate a normal liver and spleen. Mild thickening of the adrenal g lands is likely age-related. Mild thickening and fat stranding at the gastroesophageal junction. This is best seen image 83. A 2.5 cm hypodense lesion within the left kidney favors a cyst. The thyroid g land enhances normally. No pleural or pericardial effusions. No mediastinal or hilar lymphadenopathy. The heart is normal in size. Normal caliber thoracic aorta with no evidence for a dissection. No kristopher ling defects within the pulmonary arteries to suggest a pulmonary embolus. No pneumothorax. Severe bu llous emphysema seen within the lungs. Dominant left apical bulla measures 8.8 cm. Trace mucoid mater ial within the trachea. Mild central bronchial wall thickening is noted. Mild dependent changes seen at the lung bases. No focal lung consolidations to suggest a pneumonia. No evidence for pulmonary fabiana ma. IMPRESSION: 1. No evidence for a pulmonary embolus. 2. Severe bullous emphysema. 3. Mild central bronchial wall thickening favors a chronic bronchitis. 4. Patchy groundglass densities the lung bases favor dependent change. Otherwise, no focal lung conso lidations to suggest a pneumonia. 5. Focal thickening and mild fat stranding at the gastroesophageal junction. Follow-up nonemergent en doscopy recommended to exclude the possibility of underlying gastroesophageal mass.. 6. Subacute moderate superior endplate compression fracture at L1 demonstrating 5 mm of retropulsion and moderate central canal narrowing at this level. 7. Subacute mild superior endplate compression fractures at T6 and T7 without significant retropulsio n. ACT 112: Positive. There are findings on this exam that require communication between the performing entity and the patient following Patient Test Result Information Act ([place] Act 112) guidelines. Electronically signed by: Davin Bundy M.D. 10/16/2022 4:43 PM
--- NOTE | 2022-10-16 17:37 | History & Physical Report ---
Date of Service October 16, 2022 Assessment & Plan (1) Syncope: Plan: Patient is an overall unhealthy individual who has a history of reduced ejection fraction on recent echocardiogram performed in July 2022, he consistently smokes and reportedly does not have a great diet. In fact, he reports not eating anything prior to losing consciousness today. Incidentally he was found to have a lacunar infarct with an dissection of the vertebral artery on the contralateral side. It is unclear if this stroke is related to his syncopal episode. He also had no evidence of seizure activity including no witnessed myoclonus and no evidence of tongue biting or loss of bowel or bladder function. Electrolytes are within normal limits. TSH is within normal limits. He does not report any heart failure symptoms despite new cardiomyopathy seen on echocardiogram last admission. We will repeat echocardiogram now with bubble study and consider consulting cardiology if further abnormalities are seen. It is not clear that any cardiology work-up was pursued as inpatient last admission and may need to be explored while he is admitted and under surveillance. Patient denies seeing any doctors as outpatient. Notably there was no significant valvular pathology at that time and a small loculated anterior pericardial effusion was seen without hemodynamic significance. Continue monitoring on telemetry overnight. 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 Discussed the case peripherally with neurology. We will go ahead and start anticoagulation therapy at this time. Transition to oral anticoagulation after MRI confirms no hemorrhagic conversion. Nonurgent outpatient consultation with vascular surgery as recommended. (3) Cerebellar stroke: Plan: In addition to anticoagulation above will add antiplatelet therapy with aspirin. Continue aspirin 81 and Lipitor 40 mg daily. Consider dual antiplatelet therapy after MRI confirms no hemorrhagic conversion. Consulted neurology. Smoking cessation was strongly advised to patient. (4) COPD (chronic obstructive pulmonary disease): Plan: Long-term smoker with bullous emphysema on CT. No active wheezing and is no evidence of active exacerbation at this time. Notably he is not on inhalers. He may benefit from this including Incruse Ellipta at discharge, however, he is very resistant to taking medications on a daily basis. Priority should be for the medications listed above. (5) Closed compression fracture of L1 vertebra: Plan: Incidental finding on CT of the chest. This was discussed with the patient who denies any pain (6) Compression fx, thoracic spine: Plan: Incidental finding on CT of the chest. This was discussed with the patient who denies any pain (7) Smoker: Plan: Smoking cessation was strongly advised. Patient verbalized understanding and is in contemplative phase at this time. Full code as confirmed with patient on admission DVT prophylaxis with heparin drip Disposition-to home when medically cleared after work-up as planned above Sangita Peacock DO [facility] Hospitalist History of Present Illness Chief Complaint: syncope Primary Care Provider: NO PCP 67 yo smoker presented via EMS after being found down on the grass outside his residence. He reports feeling well all morning and over the last few days and reports feeling a weird sensation while walking out to his mailbox described as nausea. The next thing he remembered was awakening in the ambulance. He did not lose control of his bladder or his bowels. He was clear when he awoke and was easily reoriented. He is not confused at this time. He did not bite his tongue. He denies any headache or visual changes. He denies any pain although states that he must have landed on his left shoulder because this is a little bit sore. He has no restriction in range of motion of left shoulder. He has a chronic left shoulder numbness that is intermittent. This has been present since his last admission. Denies chest pain, no abdominal pain, no diarrhea, admits to not eating well, didn't eat any food today. Denies neck pain. No blood in his stool. No weight loss. No shortness of breath or respiratory symptoms. Ambulated to and from the bathroom without difficulty here in the room. Allergies Allergy/AdvReac Type Severity Reaction Status Date / Time No Known Allergies Allergy Unverified 10/16/22 17:14 Home Medications Medication Instructions Recorded Confirmed Type naproxen sodium 220 mg tablet 200 mg PO BID PRN Pain 07/06/22 10/16/22 History (Aleve) Past Med/Surg History Medical History Cardiomegaly Emphysema of lung Inguinal hernia Smoker Surgical History Hx of tonsillectomy S/P left inguinal hernia repair (07/08/22) Robotic Left Laparoscopic Inguinal Hernia Repair (Not Applicable) - Adrian Beaver DO, FACS Family History Mother Breast cancer Brother Cancer Sister Cancer Social History Smoking Status: Current every day smoker Hx Alcohol Use: No Hx Substance Use: No Preferred Language: Polish Communication Ability: Effective Hearing Ability: Normal 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 Physical Exam Physical Exam: CONSTITUTIONAL: WNWD, vitals as above, generally well- appearing,NAD EYES: EOMI bilaterally, PERRL, normal conjunctivae, no scleral icterus ENT: external ear and nose normal, oral mucous membranes moist NECK: trachea midline RESPIRATORY: clear to auscultation bilaterally, no crackles, rales or wheezes, normal respiratory effort CARDIOVASCULAR: regular rate and rhythm, S1 and 2 heard without murmurs, gallops or rubs, no JVD, no peripheral edema CHEST: inspection of chest was normal GASTROINTESTINAL: soft, nontender, ND, no guarding MUSCULOSKELETAL: strength 5/5 throughout, head is normocephalic and atraumatic SKIN: warm and dry NEUROLOGIC: patellar DTRs 2+ bilat DTRs 2+ in bilat brachioradialis. no facial palsy, no dysarthria. Touch, pain and proprioception normal. CN 2-12 grossly intact, no sensory deficit, normal cognition, normal speech, no tremor, gait assessed and normal. He could perform finger to nose test and rapid alternating motion test with hands without issue. PSYCHIATRIC: alert cooperative and oriented to person, place and time. Euthymic mood, makes good eye contact, language grossly intact, recent and remote memory grossly intact. Results & Data Results & Data ([facility] [place]) Vital Signs (Past 12 Hours) Vital Signs Temp Pulse Resp BP Pulse Ox O2 Del Method 10/16/22 16:30 84 18 95 Room Air 10/16/22 16:30 159/96 H 10/16/22 16:00 92 H 14 95 Room Air 10/16/22 16:00 174/123 H 10/16/22 15:57 96 Room Air 10/16/22 15:00 93 H 16 93 Room Air 10/16/22 14:30 94 H 17 95 Room Air 10/16/22 14:30 179/107 H 10/16/22 14:00 101 H 16 92 Room Air 10/16/22 13:30 105 H 27 H 93 Room Air 10/16/22 13:22 107 H 20 90 10/16/22 15:10 Room Air 10/16/22 13:23 36.9 C 103 H 20 182/121 H 93 Room Air Laboratory Results Short CBC 10/16/22 10/16/22 Range/Units 14:04 14:37 WBC Cancelled 10.61 Hgb Cancelled 16.1 Hct Cancelled 46.1 Plt Count Cancelled 149 BMP 10/16/22 10/16/22 14:04 14:37 Sodium 134 L Potassium TNP 4.0 Chloride 101 Carbon Dioxide 24 BUN 22 Creatinine 0.90 Glucose 119 H Calcium 9.2 Cardiac Enzymes 10/16/22 Range/Units 14:04 Total Creatine Kinase 61 (30-223) U/L Liver Function 10/16/22 10/16/22 Range/Units 14:04 14:37 Total Bilirubin 0.4 (0.2-1.0) mg/dl AST TNP 15 ALT 13 (7-52) U/L Alkaline Phosphatase 88 (34-104) U/L Albumin 3.9 (3.4-5.0) gm/dl Diagnostic Findings Cervical Spine CT 10/16/22 13:[address] DOSE: 1065.57 mGy.cm HISTORY: syncope TECHNIQUE: Multiaxial CT images of the cervical spine were performed and reformatted in the sagittal and coronal plane without the use of contrast. A dose lowering technique was utilized adhering to the principles of ALARA. COMPARISON: None. FINDINGS: No fractures. No subluxation. Prevertebral soft tissues and the C1-C2 interval are intact. Left apical lucency appears to be secondary to a large bulla. No definite pneumothorax. Emphysema is noted IMPRESSION: No fractures within the cervical spine. ACT 112: Negative or not required by law. Electronically signed by: Davin Bundy M.D. 10/16/2022 2:34 PM Chest X-Ray 10/16/22 13:30 XR chest 1V portable CLINICAL HISTORY: Syncope. COMPARISON STUDY: Chest radiograph July 06, 2022. FINDINGS: Severe upper lobe predominant bullous emphysema is again noted. No pneumothorax or pleural effusion is present. There is no consolidation. No evidence for pulmonary edema. Cardiomediastinal silhouette is stable. IMPRESSION: No acute cardiopulmonary findings. Emphysema. ACT 112: Negative or not required by law. Electronically signed by: Sonny Echavarria M.D. 10/16/2022 1:[address] 10/16/22 13:30 CT OF THE HEAD WITHOUT CONTRAST CLINICAL HISTORY: Syncope. COMPARISON STUDY: No previous studies for comparison. TECHNIQUE: Helical axial images of the head were obtained without IV contrast. Automated exposure control was utilized for the study. A dose lowering technique was utilized adhering to the principles of ALARA. FINDINGS: No acute intracranial hemorrhage, midline shift or mass effect is present. Ventricular system is normal. Basal cisterns are patent. There are no extra-axial collections. A 9 mm hypodensity within the right cerebellar hemisphere on axial image 10 of 32 is noted. There are no findings to suggest acute dural sinus thrombosis or acute territorial infarct. There is no acute calvarial fracture. Mild secretions within the right maxillary sinus are pres ent. IMPRESSION: 1. No acute intracranial hemorrhage or mass effect. 2. 9 mm hypodensity within the right cerebellar hemisphere. This represents an age indeterminate lacunar infarct. ACT 112: Negative or not required by law. Electronically signed by: Sonny Echavarria M.D. 10/16/2022 2:46 PM Chest CTA 10/16/22 15:03 CHEST CTA for PULMONARY ARTERIES CT DOSE: 913.77 mGy.cm HISTORY: Confusion. Dizziness. TECHNIQUE: Multiaxial CT images of the chest were performed following the intravenous administration of contrast to evaluate the pulmonary arteries. Maximal intensity projection images were also obtained. A dose lowering technique was utilized adhering to the principles of ALARA. COMPARISON STUDY: None. FINDINGS: Subacute mild superior endplate compression fractures at T6 and T7. No associated retropulsion. There is a subacute moderate superior endplate compression fracture at L1 demonstrating 5 mm of retropulsion the posterior superior corner with moderate central canal narrowing at this level. Limited views of the upper abdomen demonstrate a normal liver and spleen. Mild thickening of the adrenal glands is likely age-related. Mild thickening and fat stranding at the gastroesophageal junction. This is best seen image 83. A 2.5 cm hypodense lesion within the left kidney favors a cyst. The thyroid gland enhances normally. No pleural or pericardial effusions. No mediastinal or hilar lymphadenopathy. The heart is normal in size. Normal caliber thoracic aorta with no evidence for a dissection. No filling defects within the pulmonary arteries to suggest a pulmonary embolus. No pneumothorax. Severe bullous emphysema seen within the lungs. Dominant left apical bulla measures 8.8 cm. Trace mucoid material within the trachea. Mild central bronchial wall thickening is noted. Mild dependent changes seen at the lung bases. No focal lung consolidations to suggest a pneumonia. No evidence for pulmonary edema. IMPRESSION: 1. No evidence for a pulmonary embolus. 2. Severe bullous emphysema. 3. Mild central bronchial wall thickening favors a chronic bronchitis. 4. Patchy groundglass densities the lung bases favor dependent change. Otherwise, no focal lung consolidations to suggest a pneumonia. 5. Focal thickening and mild fat stranding at the gastroesophageal junction. Follow-up nonemergent endoscopy recommended to exclude the possibility of underlying gastroesophageal mass.. 6. Subacute moderate superior endplate compression fracture at L1 demonstrating 5 mm of retropulsion and moderate central canal narrowing at this level. 7. Subacute mild superior endplate compression fractures at T6 and T7 without significant retropulsion. ACT 112: Positive. There are findings on this exam that require communication between the performing entity and the patient following Patient Test Result Information Act ([place] Act 112) guidelines. Electronically signed by: Davin Bundy M.D. 10/16/2022 4:43 PM Head CTA 10/16/22 15:03 CTA ANGIOGRAPHY OF THE HEAD CLINICAL HISTORY: Stroke. Confusion. Dizziness. COMPARISON STUDY: Head CT performed earlier today. TECHNIQUE: Helical axial images of the head were obtained following uneventful intravenous administration of 109 cc of Optiray. Sagittal and coronal reconstructions were viewed as well as maximal intensity projections on an independent 3-D workstation. Automated exposure control was utilized for the study. A dose lowering technique was utilized adhering to the principles of ALARA. FINDINGS: There are secretions within the right maxillary sinus. A 9 mm age- indeterminate lacunar infarct within the right cerebellar hemisphere is noted. Ventricular system is unremarkable. Basal cisterns are patent. No acute hemorrhage is identified on this contrast enhanced exam. There is moderate plaque within the bilateral cavernous carotids without stenosis. There is no central vessel occlusion. There is no intracranial aneurysm. The left vertebral artery is dominant. There is moderate plaque within the intracranial portion of the left vertebral artery which results in 30% stenosis. The basilar artery is patent. The bilateral posterior cerebral arteries are patent. Major dural sinuses are patent. IMPRESSION: 1. No central vessel occlusion. No intracranial aneurysm. 2. 30% stenosis of the intracranial portion of the left vertebral artery. 3. 9 mm age-indeterminate lacunar infarct within the right cerebellar hemisphere. ACT 112: Negative or not required by law. Electronically signed by: Sonny Echavarria M.D. 10/16/2022 3:50 PM Neck CTA 10/16/22 15:03 CT ANGIOGRAM OF THE NECK CLINICAL HISTORY: Stroke COMPARISON STUDY: No priors. TECHNIQUE: Following the IV administration of 109 of Optiray 320, CT angiogram of the neck was performed from the aortic arch to the skull base. Images are reviewed in the axial, sagittal, and coronal planes. 3-D MIPS images are created and assessed. IV contrast was administered without complication. All measurements were calculated based on NASCET criteria. A dose lowering technique was utilized adhering to the principles of ALARA. FINDINGS: Thoracic aorta: There is atherosclerotic calcification of the thoracic aorta. Visualized portions of the thoracic aorta are normal in caliber. The aortic arch demonstrates standard 3-vessel anatomy. Right carotid arterial system: The right common carotid artery is widely patent, as are the right internal and external carotid arteries. Calcified plaque is noted in the carotid bulb. Left carotid arterial system: The left common carotid artery is widely patent, as are the left internal and external carotid arteries. Calcified plaque is noted in the carotid bulb. Vertebral arteries: There is at least moderate stenosis at the origin of both vertebral arteries. There is a short segment dissection within the mid left vertebral artery at the level of C5 seen on axial image #111. The vessel is patent distally. The right vertebral artery is clear. Subclavian arteries: Widely patent bilaterally. Intracranial vasculature: The visualized intracranial vessels at the skull base are patent. Jugular veins: Widely patent bilaterally. Brain parenchyma: Small chronic appearing lacunar infarct is noted in the right cerebellar hemisphere. The visualized brain parenchyma the skull base is otherwise within normal limits. Lung apices: There is advanced emphysematous change with large apical bullae. Soft tissues: The visualized pharyngeal soft tissues are normal in appearance noting angiographic phase technique. The oropharyngeal airway appears widely patent. The salivary and thyroid glands are normal in appearance. No cervical lymphadenopathy is seen. Skeletal structures: The skeletal structures are osteopenic. The visualized calvarium at the skull base appears intact. The imaged cervical spine is maintained noting multilevel spondylosis. No lytic or blastic lesion is seen. Sinuses and mastoids: There is mild mucosal thickening within the maxillary antra. Secretions are seen on the right. The mastoid air cells are well pneumati zed. IMPRESSION: 1. There is an age indeterminate short segment dissection within the mid left vertebral artery. The vessel is patent distally and this is of indeterminant acute significance. 2. There is at least moderate stenosis at the origin of both vertebral arteries. 3. The carotid arteries are widely patent bilaterally. 4. Advanced emphysema. ACT 112: Negative or not required by law. Electronically signed by: Gerardo Alcantar M.D. 10/16/2022 4:09 PM Code Status & VTE Plan VTE Prophylaxis Plan VTE Prophylaxis will be ordered: Yes (1) Closed compression fracture of L1 vertebra Encounter type: initial encounter Qualified Code(s): S32.010A - Wedge compression fracture of first lumbar vertebra, initial encounter for closed fracture (2) Compression fx, thoracic spine Encounter type: initial encounter Thoracic vertebra fracture level: T7 Qualified Code(s): S22.060A - Wedge compression fracture of T7-T8 vertebra, initial encounter for closed fracture (3) Syncope Syncope type: unspecified Qualified Code(s): R55 - Syncope and collapse (4) COPD (chronic obstructive pulmonary disease) COPD type: unspecified COPD Qualified Code(s): J44.9 - Chronic obstructive pulmonary disease, unspecified
[2022-10-16] MEDS ORDERED: ASPIRIN CHEW 324 MG PO STA (18:49)
[2022-10-16] MEDS ORDERED: PHARMACIST DISCHARGE MED REC CONSULT PRN (20:20)
[2022-10-16] MEDS ORDERED: ACETAMINOPHEN 325 MG TAB PO PRN (20:20)
[2022-10-16] MEDS ORDERED: Heparin IV Adult Wt-Based Standard WITH Bolus Protocol IV SCH (20:22)
--- NOTE | 2022-10-16 20:42 | Magnetic Resonance Report ---
MRI OF THE BRAIN WITHOUT CONTRAST CLINICAL HISTORY: acute lacunar infarct COMPARISON STUDY: Head CT and CTA of the head performed earlier today. TECHNIQUE: Utilizing a 1.5 Ivy magnet and dedicated coil, multiplanar, multiecho imaging of the bra in was performed without IV contrast. FINDINGS: There are no foci of restricted diffusion to suggest acute infarct. No acute intracranial h emorrhage, midline shift or mass effect is present. Ventricular system is normal. Basal cisterns are patent. There are no extra-axial collections. Flow-voids for the major intracranial vessels are prese nt. 9 mm lacunar infarct within the right cerebellar hemisphere corresponds to the finding on head CT . This is chronic. Several old lacunar infarcts within the bilateral caudate nuclei are noted. Calvar ial signal is normal. Focus of susceptibility biliary artifact overlies the left eyelid. A few additi onal scalp foci of susceptibility artifact are present. IMPRESSION: 1. No acute intracranial findings. 2. Old lacunar infarct within the right cerebellar hemisphere which corresponds to the finding on hea d CT performed earlier today. Several additional old bilateral caudate lacunar infarcts. ACT 112: Negative or not required by law. Electronically signed by: Sonny Echavarria M.D. 10/16/2022 8:39 PM
[2022-10-16] MEDS ORDERED: HEPARIN 25000 UNIT/500 ML D5W IV ONE ×2 (20:56→21:01)
[2022-10-16] MEDS ORDERED: Heparin IV Adult Wt-Based Standard WITH Bolus Protocol IV STA (21:26)
[2022-10-16] MEDS: ATORVASTATIN 40 MG TAB PO SCH (21:29)
[2022-10-16] MEDS ORDERED: HEPARIN SOD (PORCINE) 1000 UNIT/ML IV ONE ×2 (21:45)
[2022-10-16] MEDS: HEPARIN SODIUM/DEXTROSE 25,000 UNITS/500 ML BAG IV SCH (21:52)
[2022-10-17 04:39] LABS: Hematocrit (blood only) 43.4 % (40.1-51.0); Hemoglobin 14.8 g/dl (14.0-18.0); Mean Corpuscular Hemoglobin 30.6 pg (25.0-34.0); Mean Corpuscular Hgb Conc 34.1 g/dL (32.0-36.0); Mean Corpuscular Volume 89.9 fL (80.0-100.0); Mean Platelet Volume 9.9 fL (9.4-12.4); Platelet Count 147 K/uL (130-400); RDW Coefficient of Variation 12.5 % (11.5-14.5); RDW Standard Deviation 40.9 fL (36.4-46.3); Red Blood Count 4.83 M/uL (4.63-6.08); White Blood Count 5.86 K/ul (4.8-10.8)
[2022-10-17 05:03] LABS: Calcium 8.7 mg/dl (8.5-10.1); Chol HDL Ratio 5.1 (0-5); Creatinine Clr Calc Pharmacy 95.4 ml/min; Est GFR (Non-African American) 90.6 ml/min; Potassium 4.1 mmol/L (3.5-5.1)
[2022-10-17 05:35] LABS: Partial Thromboplastin Ratio 2.1
[2022-10-17 05:43] LABS: Partial Thromboplastin Time 57.8 Seconds (21.0-31.0)
[2022-10-17 06:50] LABS: Estimated Average Glucose 111 mg/dl; Hemoglobin A1C 5.5 % (4.5-5.6)
[2022-10-17] MEDS ORDERED: oxyCODONE/ACETAMINOPHEN 5mg/325mg TAB PO PRN (08:17)
[2022-10-17] MEDS: ASPIRIN 81 MG ECTAB PO SCH (08:19)
[2022-10-17] MEDS ORDERED: diphenhydrAMINE Capsule 25 MG CAP PO PRN (08:20)
--- NOTE | 2022-10-17 09:35 | Neurology Consultation ---
Date of Consultation October 17, 2022 Assessment & Plan (1) Syncope: (2) Dissection of vertebral artery: (3) Cerebellar stroke: Plan 67-year-old male presenting with a syncopal episode and an incidentally discovered age-indeterminate short segment dissection within the mid left adam tebral artery and moderate stenosis at the origins of both vertebral arteries. I do not believe these findings are related to his clinical presentation. A follow-up brain MRI was negative for acute or subacute stroke. There is a chronic small lacunar infarct within the right cerebellar hemisphere. He does have a mild endpoint tremor with [id number] on the right that could be due to this lesion. Because he is neurologically stable, with no evidence of acute or subacute stroke on brain MRI, I would recommend dual antiplatelet therapy for treatment of the incidentally discovered age-indeterminate mid left vertebral artery dissection. Would recommend dual antiplatelet therapy with low-dose aspirin and clopidogrel 75 mg/day for 3 weeks, followed by transition to aspirin monotherapy. Would also recommend an outpatient assessment with a neurovascular specialist for another opinion regarding his management. This assessment could be done in the next 1 to 2 weeks at a tertiary center, either [facility] or [facility]. Interventions with stenting are typically reserved for neurologically unstable patients or patients who are actively embolizing related to a vascular dissection. Again, I do not believe an intervention is necessary in this patient's case, at least at this time. Would also recommend a statin. I see he has been started on atorvastatin, this treatment is appropriate. Continue cardiac monitoring for the syncopal episode. The episode does not sound like seizure and given that this is an isolated event, I do not think an EEG is necessary at this time. Consider obtaining prolonged outpatient cardiac monitoring as well. Smoking cessation counseling. May follow-up with myself or an MAUREEN as an outpatient in 2 to 3 weeks. History of Present Illness Reason for Consultation: syncope, stroke, vert artery dissection Requesting Physician: Sangita Peacock DO Attending Physician: Kenney Ellis MD History of Present Illness The patient is a 67-year-old male who presented to the emergency department yesterday after a syncopal episode that occurred while walking outside his home. He recalls feeling lightheaded or dizzy prior to the event and is otherwise amnestic, he awoke in the ambulance. He was slightly confused at that time. No known history of seizure disorder. CT angiography of the head and neck revealed an age-indeterminate short segment dissection within the mid left vertebral artery. The vessel is patent distally. There was moderate stenosis at the origin of both vertebral arteries. Carotid arteries widely patent. No central vessel occlusion or intracranial aneurysm. 30% stenosis of the intracranial portion of the left vertebral artery and a 9 mm age-indeterminate lacunar infarct within the right cerebellar hemisphere. A follow-up brain MRI was negative for acute findings. There was a chronic lacunar infarct within the right cerebellar hemisphere as seen on the previous CT of the head. There were several chronic bilateral caudate lacunar infarcts as well. I did independently review these images and was able to appreciate these findings as described by the interpreting radiologist. Allergies Allergy/AdvReac Type Severity Reaction Status Date / Time No Known Allergies Allergy Unverified 10/16/22 17:14 Home Medications Medication Instructions Recorded Confirmed Type naproxen sodium 220 mg tablet 200 mg PO BID PRN Pain 07/06/22 10/16/22 History (Aleve) Patient History Medical History Cardiomegaly Emphysema of lung Inguinal hernia Smoker Surgical History Hx of tonsillectomy S/P left inguinal hernia repair (07/08/22) Robotic Left Laparoscopic Inguinal Hernia Repair (Not Applicable) - Adrian Beaver DO, FACS Family History Mother Breast cancer Brother Cancer Sister Cancer Social History Smoking Status: Current every day smoker Hx Alcohol Use: No Hx Substance Use: No Preferred Language: Danish Communication Ability: Effective Hearing Ability: Normal Manager Group Required: No Beliefs That Will Affect Care: None marital status: Single Current Living Situation: Alone Current Living Situation Comment: home alone current occupational status: retired current occupation: worked for [employer] and [employer] Other Information That Helps Us Care for You: No Feels Safe at Home: Yes Assistive Devices: None Review of Systems Constitutional: no fever and no chills Eyes: no blind spots and no diplopia Ear, Nose, Mouth, Throat: no ear pain and no hearing loss Respiratory: no cough and no dyspnea Cardiovascular: no chest pain and no palpitations Gastrointestinal: no nausea and no vomiting Genitourinary: no dysuria or no urinary incontinence Musculoskeletal: no neck pain and no myalgia Integumentary: + rash Neurologic: as per Subjective / HPI and + syncope; no gait abnormality, no localized weakness, no loss of sensation, no lack of coordination, no abnormal movements, no headache(s) and no confusion Psychiatric: no depression and no anxiety Hematologic / Lymphatic: no easy bleeding and no easy bruising Exam (Neuro) Constitutional: well developed and well nourished; no acute distress Eyes: normal visual soto by confrontation, PERRL, normal accommodation and EOM intact bilaterally; no fundoscopic abnormality, no nystagmus and no papilledema Cardiovascular: Vessels: normal carotid upstroke; no carotid bruit Neurologic: Oriented to:: Person, Place and Time Memory: Short Term Intact and Remote Intact Attention: Span Intact and Concentration Intact Language: Naming Objects and Repeating Phrases Speech Fluency: negative Dysarthria Speech Aphasia: negative Aphasia Fund of Knowledge: Current Events, Past History and Vocabulary Cranial Nerves: Normal II (Visual soto full to confrontation, visual acuity normal), III, IV, (Pupils equal round reactive to light and accommodation, eye movements normal), V (Facial sensation intact), VII (There is no facial droop or weakness), VIII (Hearing intact), IX, X (Palate elevates to midline), XI (Shoulder shrug intact) and XII (Tongue protrudes to midline) Motor Strength: Normal Lower Extremities and Normal Upper Extremities; negative Pronator Drift Motor Tone: Normal Lower Extremities and Normal Upper Extremities Muscle Bulk/Involuntary Movements: No Involuntary Movements; negative Muscle Atrophy Sensation: Light Touch Intact, Pain/Temperature Intact, Vibration Intact and Proprioception Intact Coordination: Normal and Finger-Nose Abnormal (Mild endpoint tremor on the right with [id number] testing observed.) Laterality: Right; negative Limited Balance, Dysdiadochokinesia or Heel-Navas Abnormal Deep Tendon Reflexes: Rt Triceps: 2+, Lt Triceps: 2+, Rt Biceps: 2+, Lt Biceps: 2+, Rt Brachioradialis: 2+, Lt Brachioradialis: 2+, Rt Patellar: 2+, Lt Patellar: 2+, Rt Ankle: 2+ and Lt Ankle: 2+ Special Tests: negative Babinski Present Gait: Normal Station and Gait Results & Data ([facility]) Vital Signs (Past 12 Hours) Vital Signs Temp Pulse Pulse Resp BP Pulse Ox O2 Del Method 10/17/22 07:45 36.7 C 74 20 163/92 H 93 Room Air 10/17/22 03:43 79 10/17/22 03:24 36.6 C 63 18 132/84 96 Room Air 10/16/22 23:22 36.7 C 80 20 163/92 H 95 Room Air Laboratory Results WBC 5.86, hemoglobin 14.8, hematocrit 43.4, platelet count 147, sodium 135, potassium 4.1, BUN 16, creatinine 0.84, glucose 107, hemoglobin A1c 5.5, AST 15, ALT 13, total CK 61, triglycerides 85, cholesterol 174, LDL 123, VLDL 17, HDL 34, TSH 2.[address] angiography of the head and neck and brain MRI are as described in the HPI, I independently reviewed these images. An echocardiogram revealed mild concentric left ventricular hypertrophy, mild global hypokinesis of the left ventricle, septal motion consistent with conduction abnormality, EF 45 to 50%, aortic valve sclerosis, moderate, mild to moderate aortic regurgitation, left atrial size normal, no ASD. Lipomatous hypertrophy of the interatrial septum noted. PFO not assessed. PG Care Time/CCT Total # of Minutes Spent Total Time Spent with Patient: Total time spent is greater than 50% in coordination of care (as documented) at patient's floor/unit and/or counseling patient: Coding Level of Care Code 09623 INT INP/OBS CARE 375MIN Diagnoses Syncope R55 Syncope type: unspecified Dissection of vertebral artery I77.74 Cerebellar stroke I63.9 (1) Syncope Syncope type: unspecified Qualified Code(s): R55 - Syncope and collapse
--- NOTE | 2022-10-17 13:02 | CT Scan Report ---
CT SCAN OF THE LUMBAR SPINE WITHOUT IV CONTRAST CLINICAL HISTORY: L1 compression fracture. COMPARISON STUDY: Abdominal CT dated 07/06/2022. TECHNIQUE: CT scan of the thoracic spine was performed from the lower thoracic spine to the sacrum. I mages are reviewed in the axial, sagittal, and coronal planes. IV contrast was not administered for t his examination. A dose lowering technique was utilized adhering to the principles of ALARA. FINDINGS: The skeletal structures are osteopenic. Again seen is a moderate compression fracture of L1 . This has been present dating back to at least 07/06/2022, and the fracture lucency appears increased from the prior examination. This could be acute to subacute on chronic. Loss of height is similar to the prior examination. Fragments are retropulsed by up to 6 mm. This causes at least mild central ca nal stenosis at this level. Fracture does not involve the posterior elements. There is minimal parave rtebral edema at this level. No additional findings are suspicious for acute fracture. Vertebral body height is otherwise maintained throughout the lumbar spine. Alignment is preserved. Small anterior a nd lateral marginal osteophytes are seen throughout. The transverse and spinous processes are intact. There is no spondylolysis. No lytic or blastic lesion is seen. The disc spaces appear maintained. No large disc herniation is identified. The visualized sacrum and bony pelvis appear intact. The parasp inous soft tissues are normal as imaged. There is moderate atherosclerotic calcification of the abdom inal aorta. An infrarenal abdominal aneurysm is partially visualized. No retroperitoneal lymphadenopa thy is seen. Excreted IV contrast is present within the renal collecting system bilaterally. IMPRESSION: 1. There is a moderate compression fracture of L1. Although this has been present dating back to at l east 07/06/2022, the fracture lucency has increased from the prior examination. This could represent a n acute to subacute on chronic fracture. Clinical correlation will be essential. 2. Loss of height at L1 is similar to previous. 3. Fragments are retropulsed by up to 7 mm at L1. This contributes to at least mild central canal shavon nosis. 3. No additional fracture is seen involving the lumbar spine. 4. An infrarenal abdominal aortic aneurysm is partially visualized. This was better assessed on the abdominal CT. ACT 112: Negative or not required by law. Dictated: 10/17/2022 12:32 PM Transcribed: 10/17/2022 12:59 PM Suyapa [id number] [email or web address] Electronically signed by: Gerardo Alcantar M.D. 10/17/2022 1:00 PM
[2022-10-17 13:54] LABS: Appearance Urine Clear (Clear); Bilirubin Urine Negative (Negative); Blood Urine Negative (Negative); Color Urine Yellow; Glucose Urine UA Negative (Negative); Ketones Urine Negative (Negative); Leukocyte Esterase Urine Negative (Negative); Nitrite Urine Negative (Negative); Protein Urine Negative (Negative); Specific Gravity Urine 1.013 (1.000-1.030); Urobilinogen Urine Negative (Negative)
--- NOTE | 2022-10-17 14:14 | Hospitalist Progress Note ---
Date of Service October 17, 2022 Assessment & Plan (1) Syncope: Plan: Syncope Unclear etiology Chronic CVA: Multiple (right cerebellar, bilateral lacunar infarcts) -MRI Brain:No acute intracranial findings. Old lacunar infarct within the right cerebellar hemisphere which corresponds to the finding on head CT performed earlier today. Several additional old bilateral caudate lacunar infarcts. --Head CTA:No central vessel occlusion. No intracranial aneurysm. 30% stenosis of the intracranial portion of the left vertebral artery. 9 mm age- indeterminate lacunar infarct within the right cerebellar hemisphere. --Neck CTA:There is an age indeterminate short segment dissection within the mid left vertebral artery. The vessel is patent distally and this is of indeterminant acute significance. There is at least moderate stenosis at the origin of both vertebral arteries. The carotid arteries are widely patent bilaterally. Advanced emphysema. --ECHO: Mild concentric LVH. Mild global hypokinesis of left ventricle. Septal motion is consistent with conduction abnormality. EF 45 to 50%. Grade 2 diastolic dysfunction. Mild to moderate aortic regurgitation. No significant change from prior echo -- Currently on IV heparin Also started on aspirin, Lipitor Appreciate neurology input Plan to start on dual antiplatelet therapy with aspirin, Plavix for 3 weeks and then transition to aspirin alone Needs follow-up with neurology upon discharge (2) Dissection of vertebral artery: Plan: Left dissection of vertebral artery. Imaging studies as above Continue IV heparin for now Vascular surgery consulted (3) Cerebellar stroke: Plan: Management as above Chronic diastolic heart failure No signs of acute decompensation ECHO as above Plan to start on Lasix 20 mg daily as able (4) COPD (chronic obstructive pulmonary disease): Plan: Long-term smoker with bullous emphysema on CT. Tobacco use disorder Patient not interested to quit smoking No signs of exacerbation of COPD Will consider Incruse Ellipta, Albuterol PRN upon discharge (5) Closed compression fracture of L1 vertebra: Plan: --Lumbar CT: There is a moderate compression fracture of L1. Although this has been present dating back to at least 07/06/2022, the fracture lucency has increased from the prior examination. This could represent an acute to subacute on chronic fracture. Clinical correlation will be essential. Loss of height at L1 is similar to previous. Fragments are retropulsed by up to 7 mm at L1. This contributes to at least mild central canal stenosis. No additional fracture is seen involving the lumbar spine. An infrarenal abdominal aortic aneurysm is partially visualized. This was better assessed on the 07/06/[address] -- Thoracic spine CT pending Orthopedics consulted Abnormal CT --CT showed:Focal thickening and mild fat stranding at the gastroesophageal junction. Follow-up nonemergent endoscopy recommended to exclude the possibility of underlying gastroesophageal mass.. -- Will need outpatient endoscopy (6) Compression fx, thoracic spine: Plan: Management as above (7) Smoker: Plan: Not interested to quit smoking currently DVT Px: IV Heparin Code Status Full code Admission and Anticipated Discharge Date Admission Date: October 16, 2022 Subjective Patient is seen and examined at bedside States having chronic back pain which is unchanged On IV heparin, no bleeding issues Denies any chest pain, dyspnea, dizziness, nausea, abdominal pain Eager to get discharged Review of Systems Review of Systems: All systems reviewed & are unremarkable except as noted in Subjective Physical Exam Physical Exam: Physical Exam: Vitals signs as noted above General Appearance:Moderately built and nourished, no apparent distress Head: normocephalic, Atraumatic Eyes: normal inspection, EOMI Neck: supple, Trachea midline Respiratory/Chest: Decreased breath sounds, No accessory muscle use Cardiovascular: S1, S2, + murmur Abdomen/GI:Soft, Non tender, Bowel sounds present Extremities/Musculoskeletal:normal inspection, 1+ B/L LE edema Neurologic/Psych:AAOX3, grossly no focal neurological deficits Skin: normal color, warm, +Multiple Scars Results & Data Results & Data ([facility]) Vital Signs (Past 12 Hours) Vital Signs Temp Pulse Pulse Resp BP Pulse Ox O2 Del Method 10/17/22 12:19 Room Air 10/17/22 08:00 90 10/17/22 11:42 36.7 C 73 19 170/101 H 95 Room Air 10/17/22 07:45 36.7 C 74 20 163/92 H 93 Room Air 10/17/22 03:43 79 10/17/22 03:24 36.6 C 63 18 132/84 96 Room Air Laboratory Results Short CBC 10/16/22 10/16/22 10/17/22 Range/Units 14:04 14:37 04:15 WBC Cancelled 10.61 5.86 Hgb Cancelled 16.1 14.8 Hct Cancelled 46.1 43.4 Plt Count Cancelled 149 147 BMP 10/16/22 10/16/2210/17/23 14:04 14:37 04:15 Sodium 134 L 135 L Potassium TNP 4.0 4.1 Chloride 101 102 Carbon Dioxide 24 25 BUN 22 16 Creatinine 0.90 0.84 Glucose 119 H 107 H Calcium 9.2 8.7 Cardiac Enzymes 10/16/22 Range/Units 14:04 Total Creatine Kinase 61 (30-223) U/L Liver Function 10/16/22 10/16/22 Range/Units 14:04 14:37 Total Bilirubin 0.4 (0.2-1.0) mg/dl AST TNP 15 ALT 13 (7-52) U/L Alkaline Phosphatase 88 (34-104) U/L Albumin 3.9 (3.4-5.0) gm/dl Urine 10/17/22 Range/Units Unknown Urine Color Yellow Urine Appearance Clear (Clear) Urine pH 6.0 (4.5-7.5) Ur Specific Concepcion 1.013 (1.000-1.030) Urine Protein Negative (Negative) Urine Glucose (UA) Negative (Negative) (1) Syncope Syncope type: unspecified Qualified Code(s): R55 - Syncope and collapse (2) COPD (chronic obstructive pulmonary disease) COPD type: unspecified COPD Qualified Code(s): J44.9 - Chronic obstructive pulmonary disease, unspecified (3) Closed compression fracture of L1 vertebra Encounter type: initial encounter Qualified Code(s): S32.010A - Wedge compression fracture of first lumbar vertebra, initial encounter for closed fracture (4) Compression fx, thoracic spine Encounter type: initial encounter Thoracic vertebra fracture level: T7 Qualified Code(s): S22.060A - Wedge compression fracture of T7-T8 vertebra, initial encounter for closed fracture
--- NOTE | 2022-10-17 14:56 | CT Scan Report ---
CT OF THE THORACIC SPINE CLINICAL HISTORY: evaluation of T6,T7 fx COMPARISON STUDY: CT of the abdomen and pelvis July 06, [address] October 16, 2022. TECHNIQUE: Helical axial images of the thoracic spine were obtained. Sagittal and coronal reconstru ctions were viewed. Automated exposure control was utilized for the study. A dose lowering techniqu e was utilized adhering to the principles of ALARA. FINDINGS: Alignment of the thoracic spine is anatomic. A moderate L1 compression fracture is noted wi th 7 mm of retropulsion at the superior endplate. Fracture line is more conspicuous than on CT of Oct consuelo 2021. Subacute T6 and T7 mild compression fractures are noted. There is no retropulsion at th griselda levels. There may be a subtle acute compression fracture along the superior endplate of T10. No a dditional thoracic spine fractures are present. Central canal and neural foramen is about be assessed given CT technique. Severe bullous emphysema is noted within the adjacent lungs. Lungs are better as sessed on recent chest CT IMPRESSION: 1. Moderate L1 compression fracture with 7 mm retropulsion at the superior endplate which results in at least mild central canal stenosis. This may reflect an acute to subacute on chronic fracture when correlating with earlier CT of July 06, 2022. 2. Subacute mild T6 and T7 compression fractures. No retropulsion. 3. Possible nondisplaced acute T10 compression fracture with subtle buckling of the anterior cortex. ACT 112: Negative or not required by law. Electronically signed by: Sonny Echavarria M.D. 10/17/2022 2:54 PM
[2022-10-17] MEDS: HEPARIN SODIUM/DEXTROSE 25,000 UNITS/500 ML BAG IV SCH (15:53)
[2022-10-17] MEDS: ATORVASTATIN 40 MG TAB PO SCH (20:34)
[2022-10-18 07:24] LABS: Hematocrit (blood only) 44.3 % (40.1-51.0); Hemoglobin 15.4 g/dl (14.0-18.0); Mean Corpuscular Hemoglobin 31.1 pg (25.0-34.0); Mean Corpuscular Hgb Conc 34.8 g/dL (32.0-36.0); Mean Corpuscular Volume 89.5 fL (80.0-100.0); Mean Platelet Volume 10.2 fL (9.4-12.4); Platelet Count 124 K/uL (130-400); RDW Coefficient of Variation 12.6 % (11.5-14.5); RDW Standard Deviation 41.4 fL (36.4-46.3); Red Blood Count 4.95 M/uL (4.63-6.08); White Blood Count 5.07 K/ul (4.8-10.8)
[2022-10-18 07:25] LABS: BUN Creatinine Ratio 15.6 (10-20); Calcium 8.8 mg/dl (8.5-10.1); Creatinine Clr Calc Pharmacy 82.2 ml/min; Est GFR (African American) 102.1 ml/min; Est GFR (Non-African American) 88.1 ml/min; Potassium 4.3 mmol/L (3.5-5.1)
[2022-10-18 08:00] LABS: Partial Thromboplastin Ratio 2.3
[2022-10-18 08:01] LABS: Partial Thromboplastin Time 63.2 Seconds (21.0-31.0)
[2022-10-18] MEDS: ASPIRIN 81 MG ECTAB PO SCH ×2 (08:35→10:29)
[2022-10-18] MEDS ORDERED: CLOPIDOGREL BISULFATE 75 MG TAB PO SCH (10:15)
--- NOTE | 2022-10-18 10:16 | Hospitalist Progress Note ---
Date of Service October 18, 2022 Assessment & Plan (1) Syncope: Plan: Syncope Unclear etiology Chronic CVA: Multiple (right cerebellar, bilateral lacunar infarcts) -MRI Brain:No acute intracranial findings. Old lacunar infarct within the right cerebellar hemisphere which corresponds to the finding on head CT performed earlier today. Several additional old bilateral caudate lacunar infarcts. --Head CTA:No central vessel occlusion. No intracranial aneurysm. 30% stenosis of the intracranial portion of the left vertebral artery. 9 mm age- indeterminate lacunar infarct within the right cerebellar hemisphere. --Neck CTA:There is an age indeterminate short segment dissection within the mid left vertebral artery. The vessel is patent distally and this is of indeterminant acute significance. There is at least moderate stenosis at the origin of both vertebral arteries. The carotid arteries are widely patent bilaterally. Advanced emphysema. --ECHO: Mild concentric LVH. Mild global hypokinesis of left ventricle. Septal motion is consistent with conduction abnormality. EF 45 to 50%. Grade 2 diastolic dysfunction. Mild to moderate aortic regurgitation. 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 Imaging studies as above Continue IV heparin for now Vascular surgery consulted--pending Patient doesn't want to have any interventions/surgery Patient wants to be discharged despite explaining the risks and complications of being unevaluated by Vascular surgery (3) Cerebellar stroke: Plan: Management as above Chronic diastolic heart failure No signs of acute decompensation ECHO as above Plan to start on Lasix 20 mg daily Advised to follow-up with cardiology as outpatient (4) COPD (chronic obstructive pulmonary disease): Plan: Long-term smoker with bullous emphysema on CT. Tobacco use disorder Patient not interested to quit smoking No signs of exacerbation of COPD counseled to quit smoking (5) Closed compression fracture of L1 vertebra: Plan: Moderate L1 compression fracture T6, T7 compression fractures Possible nondisplaced acute T10 compression fracture --Lumbar CT: There is a moderate compression fracture of L1. Although this has been present dating back to at least 07/06/2022, the fracture lucency has increased from the prior examination. This could represent an acute to subacute on chronic fracture. Clinical correlation will be essential. Loss of height at L1 is similar to previous. Fragments are retropulsed by up to 7 mm at L1. This contributes to at least mild central canal stenosis. No additional fracture is seen involving the lumbar spine. An infrarenal abdominal aortic aneurysm is partially visualized. This was better assessed on the 07/06/[address] -- Thoracic spine CT :Moderate L1 compression fracture with 7 mm retropulsion at the superior endplate which results in at least mild central canal stenosis. This may reflect an acute to subacute on chronic fracture when correlating with earlier CT of July 06, 2022. Subacute mild T6 and T7 compression fractures. No retropulsion. Possible nondisplaced acute T10 compression fracture with subtle buckling of the anterior cortex. --Orthopedics consulted--pending Patient doesn't want to have any interventions/surgery Patient wants to be discharged despite explaining risks/complications Abnormal CT --CT showed:Focal thickening and mild fat stranding at the gastroesophageal junction. Follow-up nonemergent endoscopy recommended to exclude the possibility of underlying gastroesophageal mass.. -- Will need outpatient endoscopy (6) Compression fx, thoracic spine: Plan: Management as above (7) Smoker: Plan: Not interested to quit smoking currently DVT Px: IV Heparin Code Status Full code Admission and Anticipated Discharge Date Admission Date: October 16, 2022 Subjective Patient is seen and examined at bedside No new complaints States having chronic back pain which is unchanged Denies any chest pain, dyspnea, dizziness, nausea, abdominal pain Prefers to be discharged today Review of Systems Review of Systems: All systems reviewed & are unremarkable except as noted in Subjective Physical Exam Physical Exam: Physical Exam: Vitals signs as noted above General Appearance:Moderately built and nourished, no apparent distress Head: normocephalic, Atraumatic Eyes: normal inspection, EOMI Neck: supple, Trachea midline Respiratory/Chest: Decreased breath sounds, No accessory muscle use Cardiovascular: S1, S2, + murmur Abdomen/GI:Soft, Non tender, Bowel sounds present Extremities/Musculoskeletal:normal inspection, 1+ B/L LE edema Neurologic/Psych:AAOX3, grossly no focal neurological deficits Skin: normal color, warm, +Multiple Scars Results & Data Results & Data ([facility]) Vital Signs (Past 12 Hours) Vital Signs Temp Pulse Pulse Resp BP BP Pulse Ox 10/18/22 07:20 10/18/22 08:00 70 10/18/22 07:28 36.6 C 64 18 169/94 H 95 10/18/22 03:14 36.7 C 79 18 151/92 H 94 10/17/22 23:54 36.7 C 79 18 155/97 H 96 10/17/22 23:35 73 O2 Del Method 10/18/22 07:20 Room Air 10/18/22 08:00 10/18/22 07:28 Room Air 10/18/22 03:14 Room Air 10/17/22 23:54 Room Air 10/17/22 23:35 Laboratory Results Short CBC 10/18/22 Range/Units 05:50 WBC 5.07 (4.8-10.8) K/ul Hgb 15.4 (14.0-18.0) g/dl Hct 44.3 (40.1-51.0) % Plt Count 124 L (130-400) K/uL BMP 10/18/22 05:50 Sodium 137 Potassium 4.3 Chloride 102 Carbon Dioxide 30 BUN 14 Creatinine 0.90 Glucose 95 Calcium 8.8 Urine 10/17/22 Range/Units Unknown Urine Color Yellow Urine Appearance Clear (Clear) Urine pH 6.0 (4.5-7.5) Ur Specific [place] 1.013 (1.000-1.030) Urine Protein Negative (Negative) Urine Glucose (UA) Negative (Negative) (1) Syncope Syncope type: unspecified Qualified Code(s): R55 - Syncope and collapse (2) COPD (chronic obstructive pulmonary disease) COPD type: unspecified COPD Qualified Code(s): J44.9 - Chronic obstructive pulmonary disease, unspecified (3) Closed compression fracture of L1 vertebra Encounter type: initial encounter Qualified Code(s): S32.010A - Wedge compression fracture of first lumbar vertebra, initial encounter for closed fracture (4) Compression fx, thoracic spine Encounter type: initial encounter Thoracic vertebra fracture level: T7 Qualified Code(s): S22.060A - Wedge compression fracture of T7-T8 vertebra, initial encounter for closed fracture
[2022-10-18] MEDS: HEPARIN SODIUM/DEXTROSE 25,000 UNITS/500 ML BAG IV SCH (10:31)
--- NOTE | 2022-10-18 10:34 | Discharge Summary ---
Date of Service October 18, 2022 Admission HPI Per Admitting Provider 67 yo smoker presented via EMS after being found down on the grass outside his residence. He reports feeling well all morning and over the last few days and reports feeling a weird sensation while walking out to his mailbox described as nausea. The next thing he remembered was awakening in the ambulance. He did not lose control of his bladder or his bowels. He was clear when he awoke and was easily reoriented. He is not confused at this time. He did not bite his tongue. He denies any headache or visual changes. He denies any pain although states that he must have landed on his left shoulder because this is a little bit sore. He has no restriction in range of motion of left shoulder. He has a chronic left shoulder numbness that is intermittent. This has been present since his last admission. Denies chest pain, no abdominal pain, no diarrhea, admits to not eating well, didn't eat any food today. Denies neck pain. No blood in his stool. No weight loss. No shortness of breath or respiratory symptoms. Ambulated to and from the bathroom without difficulty here in the room. Admission Exam Per Admitting Provider Physical Exam Physical Exam: CONSTITUTIONAL: WNWD, vitals as above, generally well- appearing,NAD EYES: EOMI bilaterally, PERRL, normal conjunctivae, no scleral icterus ENT: external ear and nose normal, oral mucous membranes moist NECK: trachea midline RESPIRATORY: clear to auscultation bilaterally, no crackles, rales or wheezes, normal respiratory effort CARDIOVASCULAR: regular rate and rhythm, S1 and 2 heard without murmurs, gallops or rubs, no JVD, no peripheral edema CHEST: inspection of chest was normal GASTROINTESTINAL: soft, nontender, ND, no guarding MUSCULOSKELETAL: strength 5/5 throughout, head is normocephalic and atraumatic SKIN: warm and dry NEUROLOGIC: patellar DTRs 2+ bilat DTRs 2+ in bilat brachioradialis. no facial palsy, no dysarthria. Touch, pain and proprioception normal. CN 2-12 grossly intact, no sensory deficit, normal cognition, normal speech, no tremor, gait assessed and normal. He could perform finger to nose test and rapid alternating motion test with hands without issue. PSYCHIATRIC: alert cooperative and oriented to person, place and time. Euthymic mood, makes good eye contact, language grossly intact, recent and remote memory grossly intact. Principal Diagnosis Syncope Left dissection of vertebral artery Moderate L1 compression fracture T6, T7 compression fractures Possible nondisplaced acute T10 compression fracture Thickening of gastroesophageal junction Tobacco use disorder Discharge Data Allergies Allergy/AdvReac Type Severity Reaction Status Date / Time No Known Allergies Allergy Unverified 10/16/22 17:14 Consultations 10/16/22 16:50 ED Decision to Admit Stat 10/16/22 20:20 Consult Neurology Routine 10/17/22 08:19 Consult Orthopedic Surgery Routine 10/17/22 08:31 Consult Vascular Surgery Routine Procedures Performed Laboratory Results WBC 5.07 K/ul (4.8-10.8) 10/18/22 05:50 RBC 4.95 M/uL (4.63-6.08) 10/18/22 05:50 Hgb 15.4 g/dl (14.0-18.0) 10/18/22 05:50 Hct 44.3 % (40.1-51.0) 10/18/22 05:50 MCV 89.5 fL (80.0-100.0) 10/18/22 05:50 MCH 31.1 pg (25.0-34.0) 10/18/22 05:50 MCHC 34.8 g/dL (32.0-36.0) 10/18/22 05:50 RDW Std Deviation 41.4 fL (36.4-46.3) 10/18/22 05:50 RDW Coeff of Zeinab 12.6 % (11.5-14.5) 10/18/22 05:50 Plt Count 124 K/uL (130-400) L 10/18/22 05:50 MPV 10.2 fL (9.4-12.4) 10/18/22 05:50 Immature Gran % (Auto) 0.6 % 10/16/22 14:37 Neut % (Auto) 86.8 % 10/16/22 14:37 Lymph % (Auto) 7.3 % 10/16/22 14:37 [place] % (Auto) 4.7 % 10/16/22 14:37 Eos % (Auto) 0.4 % 10/16/22 14:37 Baso % (Auto) 0.2 % 10/16/22 14:37 Neut # (Auto) 9.22 K/uL (1.4-6.5) H 10/16/22 14:37 Lymph # (Auto) 0.77 K/uL (1.2-3.4) L 10/16/22 14:37 [place] # (Auto) 0.50 K/uL (0.24-0.82) 10/16/22 14:37 Eos # (Auto) 0.04 K/uL (0-0.50) 10/16/22 14:37 Baso # (Auto) 0.02 K/uL (0-0.2) 10/16/22 14:37 Immature Gran # (Auto) 0.06 K/uL (0.00-0.02) H 10/16/22 14:37 Absolute Nucleated RBC Cancelled 10/16/22 14:04 Nucleated RBC % (auto) Cancelled 10/16/22 14:04 Neutrophils % (Manual) Cancelled 10/16/22 14:04 Band Neutrophils % Cancelled 10/16/22 14:04 Lymphocytes % (Manual) Cancelled 10/16/22 14:04 Prolymphocyte % Cancelled 10/16/22 14:04 Reactive Lymphs % (Man) Cancelled 10/16/22 14:04 Monocytes % (Manual) Cancelled 10/16/22 14:04 Eosinophils % (Manual) Cancelled 10/16/22 14:04 Basophils % (Manual) Cancelled 10/16/22 14:04 Metamyelocytes % (Man) Cancelled 10/16/22 14:04 Myelocytes % (Man) Cancelled 10/16/22 14:04 Promyelocytes % (Man) Cancelled 10/16/22 14:04 Blast Cells % (Manual) Cancelled 10/16/22 14:04 Plasma Cell % (Manual) Cancelled 10/16/22 14:04 Other Cells % Cancelled 10/16/22 14:04 Nucleated RBC % Cancelled 10/16/22 14:04 Neutrophils # (Manual) Cancelled 10/16/22 14:04 Band Neutrophils # Cancelled 10/16/22 14:04 Total Absolute Neuts Cancelled 10/16/22 14:04 Lymphocytes # (Manual) Cancelled 10/16/22 14:04 Prolymphocyte # Cancelled 10/16/22 14:04 Reactive Lymphs # Cancelled 10/16/22 14:04 Total Abs Lymphocytes Cancelled 10/16/22 14:04 Monocytes # (Manual) Cancelled 10/16/22 14:04 Eosinophils # (Manual) Cancelled 10/16/22 14:04 Basophils # (Manual) Cancelled 10/16/22 14:04 Metamyelocytes # (Man) Cancelled 10/16/22 14:04 Myelocytes # (Manual) Cancelled 10/16/22 14:04 Promyelocytes # (Man) Cancelled 10/16/22 14:04 Blast Cells # (Man) Cancelled 10/16/22 14:04 Plasma Cell # (Manual) Cancelled 10/16/22 14:04 Other Cells # Cancelled 10/16/22 14:04 Nucleated RBCs # (Man) Cancelled 10/16/22 14:04 Hypersegmented Neuts Cancelled 10/16/22 14:04 Hyposegmented Neuts Cancelled 10/16/22 14:04 Hypogranular Neuts Cancelled 10/16/22 14:04 Large Granular Lymphs Cancelled 10/16/22 14:04 # Lrg Granular Lymphs Cancelled 10/16/22 14:04 Hairy Cells Cancelled 10/16/22 14:04 Smudge Cells Cancelled 10/16/22 14:04 Toxic Granulation Cancelled 10/16/22 14:04 Toxic Vacuolation Cancelled 10/16/22 14:04 Dohle Bodies Cancelled 10/16/22 14:04 Joe Rods Cancelled 10/16/22 14:04 Platelet Estimate Cancelled 10/16/22 14:04 Hypogranular Platelets Cancelled 10/16/22 14:04 Clumped Platelets Cancelled 10/16/22 14:04 Giant Platelets Cancelled 10/16/22 14:04 Platelet Satelliting Cancelled 10/16/22 14:04 RBC Morphology Cancelled 10/16/22 14:04 Polychromasia Cancelled 10/16/22 14:04 Hypochromasia Cancelled 10/16/22 14:04 Poikilocytosis Cancelled 10/16/22 14:04 Basophilic Stippling Cancelled 10/16/22 14:04 Anisocytosis Cancelled 10/16/22 14:04 Microcytosis Cancelled 10/16/22 14:04 Macrocytosis Cancelled 10/16/22 14:04 Spherocytes Cancelled 10/16/22 14:04 Pappenheimer Bodies Cancelled 10/16/22 14:04 Sickle Cells Cancelled 10/16/22 14:04 Target Cells Cancelled 10/16/22 14:04 Tear Drop Cells Cancelled 10/16/22 14:04 Ovalocytes Cancelled 10/16/22 14:04 Stomatocytes Cancelled 10/16/22 14:04 Mattson-Godfrey Bodies Cancelled 10/16/22 14:04 Echinocytes Cancelled 10/16/22 14:04 Acanthocytes (Spur) Cancelled 10/16/22 14:04 Rouleaux Cancelled 10/16/22 14:04 RBC Agglutinates Cancelled 10/16/22 14:04 Schistocytes Cancelled 10/16/22 14:04 Sezary Cell Cancelled 10/16/22 14:04 PT 11.1 Seconds (9.0-12.0) 10/16/22 14:37 INR 1.0 (0.9-1.1) 10/16/22 14:37 APTT 63.2 Seconds (21.0-31.0) H* 10/18/22 05:50 PTT Ratio 2.3 10/18/22 05:50 D-Dimer 4030 ug/L FEU (0-500) H* 10/16/22 14:37 Sodium 137 mmol/L (136-145) 10/18/22 05:50 Potassium 4.3 mmol/L (3.5-5.1) 10/18/22 05:50 Chloride 102 mmol/L (98-107) 10/18/22 05:50 Carbon Dioxide 30 mmol/L (21-32) 10/18/22 05:50 Anion Gap 5 (3-11) 10/18/22 05:50 BUN 14 mg/dl (6-23) 10/18/22 05:50 Creatinine 0.90 mg/dl (0.6-1.4) 10/18/22 05:50 Est Cr Clr Drug Dosing 82.2 ml/min 10/18/22 05:50 Est GFR ( Amer) 102.1 ml/min 10/18/22 05:50 Est GFR (Non-Af Amer) 88.1 ml/min 10/18/22 05:50 BUN/Creatinine Ratio 15.6 (10-20) 10/18/22 05:50 Glucose 95 mg/dl (70-99(Fasting)) 10/18/22 05:50 Estimat Average Glucose 111 mg/dl 10/17/22 04:15 Hemoglobin A1c 5.5 % (4.5-5.6) 10/17/22 04:15 Calcium 8.8 mg/dl (8.5-10.1) 10/18/22 05:50 Magnesium 2.1 mg/dl (1.7-2.4) 10/16/22 14:04 Total Bilirubin 0.4 mg/dl (0.2-1.0) 10/16/22 14:04 AST 15 U/L (13-39) 10/16/22 14:37 ALT 13 U/L (7-52) 10/16/22 14:04 Alkaline Phosphatase 88 U/L (34-104) 10/16/22 14:04 Total Creatine Kinase 61 U/L (30-223) 10/16/22 14:04 Troponin I High Sens 8.5 pg/ml (0-20) 10/16/22 14:04 Total Protein 7.2 gm/dl (6.0-8.3) 10/16/22 14:04 Albumin 3.9 gm/dl (3.4-5.0) 10/16/22 14:04 Globulin 3.3 gm/dl (2.5-4.0) 10/16/22 14:04 Albumin/Globulin Ratio 1.2 (0.9-2) 10/16/22 14:04 Triglycerides 85 mg/dl (0-150) 10/17/22 04:15 Cholesterol 174 mg/dl (0-200) 10/17/22 04:15 LDL Cholesterol, Calc 123 mg/dl 10/17/22 04:15 VLDL Cholesterol, Calc 17 mg/dl (0-30) 10/17/22 04:15 HDL Cholesterol 34 mg/dl 10/17/22 04:15 Cholesterol/HDL Ratio 5.1 (0-5) H 10/17/22 04:15 Lipase 4 U/L (11-82) L 10/16/22 14:04 TSH 2.154 uIu/ml (0.300-4.500) 10/16/22 14:04 Urine Color Yellow 10/17/22 Unknown Urine Appearance Clear (Clear) 10/17/22 Unknown Urine pH 6.0 (4.5-7.5) 10/17/22 Unknown Ur Specific [place] 1.013 (1.000-1.030) 10/17/22 Unknown Urine Protein Negative (Negative) 10/17/22 Unknown Urine Glucose (UA) Negative (Negative) 10/17/22 Unknown Urine Ketones Negative (Negative) 10/17/22 Unknown Urine Blood Negative (Negative) 10/17/22 Unknown Urine Nitrite Negative (Negative) 10/17/22 Unknown Urine Bilirubin Negative (Negative) 10/17/22 Unknown Urine Urobilinogen Negative (Negative) 10/17/22 Unknown Ur Leukocyte Esterase Negative (Negative) 10/17/22 Unknown SARS-CoV-2, RNA, NAAT NEGATIVE (NEGATIVE) 10/16/22 16:37 Blood Parasites ID Cancelled 10/16/22 14:[address] 10/16/22 13:[address] DOSE: 1065.57 mGy.cm HISTORY: syncope TECHNIQUE: Multiaxial CT images of the cervical spine were performed and reformatted in the sagittal and coronal plane without the use of contrast. A dose lowering technique was utilized adhering to the principles of ALARA. COMPARISON: None. FINDINGS: No fractures. No subluxation. Prevertebral soft tissues and the C1-C2 interval are intact. Left apical lucency appears to be secondary to a large bulla. No definite pneumothorax. Emphysema is noted IMPRESSION: No fractures within the cervical spine. ACT 112: Negative or not required by law. Electronically signed by: Davin Bundy M.D. 10/16/2022 2:34 PM Chest X-Ray 10/16/22 13:30 XR chest 1V portable CLINICAL HISTORY: Syncope. COMPARISON STUDY: Chest radiograph July 06, 2022. FINDINGS: Severe upper lobe predominant bullous emphysema is again noted. No pneumothorax or pleural effusion is present. There is no consolidation. No evidence for pulmonary edema. Cardiomediastinal silhouette is stable. IMPRESSION: No acute cardiopulmonary findings. Emphysema. ACT 112: Negative or not required by law. Electronically signed by: Sonny Echavarria M.D. 10/16/2022 1:[address] 10/16/22 13:30 CT OF THE HEAD WITHOUT CONTRAST CLINICAL HISTORY: Syncope. COMPARISON STUDY: No previous studies for comparison. TECHNIQUE: Helical axial images of the head were obtained without IV contrast. Automated exposure control was utilized for the study. A dose lowering technique was utilized adhering to the principles of ALARA. FINDINGS: No acute intracranial hemorrhage, midline shift or mass effect is present. Ventricular system is normal. Basal cisterns are patent. There are no extra-axial collections. A 9 mm hypodensity within the right cerebellar hemisphere on axial image 10 of 32 is noted. There are no findings to suggest acute dural sinus thrombosis or acute territorial infarct. There is no acute calvarial fracture. Mild secretions within the right maxillary sinus are present. IMPRESSION: 1. No acute intracranial hemorrhage or mass effect. 2. 9 mm hypodensity within the right cerebellar hemisphere. This represents an age indeterminate lacunar infarct. ACT 112: Negative or not required by law. Electronically signed by: Sonny Echavarria M.D. 10/16/2022 2:46 PM Chest CTA 10/16/22 15:03 CHEST CTA for PULMONARY ARTERIES CT DOSE: 913.77 mGy.cm HISTORY: Confusion. Dizziness. TECHNIQUE: Multiaxial CT images of the chest were performed following the intravenous administration of contrast to evaluate the pulmonary arteries. Maximal intensity projection images were also obtained. A dose lowering technique was utilized adhering to the principles of ALARA. COMPARISON STUDY: None. FINDINGS: Subacute mild superior endplate compression fractures at T6 and T7. No associated retropulsion. There is a subacute moderate superior endplate compression fracture at L1 demonstrating 5 mm of retropulsion the posterior superior corner with moderate central canal narrowing at this level. Limited views of the upper abdomen demonstrate a normal liver and spleen. Mild thickening of the adrenal glands is likely age-related. Mild thickening and fat stranding at the gastroesophageal junction. This is best seen image 83. A 2.5 cm hypodense lesion within the left kidney favors a cyst. The thyroid gland enhances normally. No pleural or pericardial effusions. No mediastinal or hilar lymphadenopathy. The heart is normal in size. Normal caliber thoracic aorta with no evidence for a dissection. No filling defects within the pulmonary arteries to suggest a pulmonary embolus. No pneumothorax. Severe bullous emphysema seen within the lungs. Dominant left apical bulla measures 8.8 cm. Trace mucoid material within the trachea. Mild central bronchial wall thickening is noted. Mild dependent changes seen at the lung bases. No focal lung consolidations to suggest a pneumonia. No evidence for pulmonary edema. IMPRESSION: 1. No evidence for a pulmonary embolus. 2. Severe bullous emphysema. 3. Mild central bronchial wall thickening favors a chronic bronchitis. 4. Patchy groundglass densities the lung bases favor dependent change. Otherwise, no focal lung consolidations to suggest a pneumonia. 5. Focal thickening and mild fat stranding at the gastroesophageal junction. Follow-up nonemergent endoscopy recommended to exclude the possibility of underl barbara gastroesophageal mass.. 6. Subacute moderate superior endplate compression fracture at L1 demonstrating 5 mm of retropulsion and moderate central canal narrowing at this level. 7. Subacute mild superior endplate compression fractures at T6 and T7 without significant retropulsion. ACT 112: Positive. There are findings on this exam that require communication between the performing entity and the patient following Patient Test Result Information Act ([place] Act 112) guidelines. Electronically signed by: Davin Bundy M.D. 10/16/2022 4:43 PM Head CTA 10/16/22 15:03 CTA ANGIOGRAPHY OF THE HEAD CLINICAL HISTORY: Stroke. Confusion. Dizziness. COMPARISON STUDY: Head CT performed earlier today. TECHNIQUE: Helical axial images of the head were obtained following uneventful intravenous administration of 109 cc of Optiray. Sagittal and coronal reconstructions were viewed as well as maximal intensity projections on an independent 3-D workstation. Automated exposure control was utilized for the study. A dose lowering technique was utilized adhering to the principles of ALARA. FINDINGS: There are secretions within the right maxillary sinus. A 9 mm age- indeterminate lacunar infarct within the right cerebellar hemisphere is noted. Ventricular system is unremarkable. Basal cisterns are patent. No acute hemorrhage is identified on this contrast enhanced exam. There is moderate plaque within the bilateral cavernous carotids without stenosis. There is no central vessel occlusion. There is no intracranial aneurysm. The left vertebral artery is dominant. There is moderate plaque within the intracranial portion of the left vertebral artery which results in 30% stenosis. The basilar artery is patent. The bilateral posterior cerebral arteries are patent. Major dural sinuses are patent. IMPRESSION: 1. No central vessel occlusion. No intracranial aneurysm. 2. 30% stenosis of the intracranial portion of the left vertebral artery. 3. 9 mm age-indeterminate lacunar infarct within the right cerebellar hemisphere. ACT 112: Negative or not required by law. Electronically signed by: Snony Echavarria M.D. 10/16/2022 3:50 PM Neck CTA 10/16/22 15:03 CT ANGIOGRAM OF THE NECK CLINICAL HISTORY: Stroke COMPARISON STUDY: No priors. TECHNIQUE: Following the IV administration of 109 of Optiray 320, CT angiogram of the neck was performed from the aortic arch to the skull base. Images are reviewed in the axial, sagittal, and coronal planes. 3-D MIPS images are created and assessed. IV contrast was administered without complication. All measurements were calculated based on NASCET criteria. A dose lowering technique was utilized adhering to the principles of ALARA. FINDINGS: Thoracic aorta: There is atherosclerotic calcification of the thoracic aorta. Visualized portions of the thoracic aorta are normal in caliber. The aortic arch demonstrates standard 3-vessel anatomy. Right carotid arterial system: The right common carotid artery is widely patent, as are the right internal and external carotid arteries. Calcified plaque is noted in the carotid bulb. Left carotid arterial system: The left common carotid artery is widely patent, as are the left internal and external carotid arteries. Calcified plaque is noted in the carotid bulb. Vertebral arteries: There is at least moderate stenosis at the origin of both vertebral arteries. There is a short segment dissection within the mid left vertebral artery at the level of C5 seen on axial image #111. The vessel is patent distally. The right vertebral artery is clear. Subclavian arteries: Widely patent bilaterally. Intracranial vasculature: The visualized intracranial vessels at the skull base are patent. Jugular veins: Widely patent bilaterally. Brain parenchyma: Small chronic appearing lacunar infarct is noted in the right cerebellar hemisphere. The visualized brain parenchyma the skull base is otherwise within normal limits. Lung apices: There is advanced emphysematous change with large apical bullae. Soft tissues: The visualized pharyngeal soft tissues are normal in appearance noting angiographic phase technique. The oropharyngeal airway appears widely patent. The salivary and thyroid glands are normal in appearance. No cervical lymphadenopathy is seen. Skeletal structures: The skeletal structures are osteopenic. The visualized calvarium at the skull base appears intact. The imaged cervical spine is maintained noting multilevel spondylosis. No lytic or blastic lesion is seen. Sinuses and mastoids: There is mild mucosal thickening within the maxillary antra. Secretions are seen on the right. The mastoid air cells are well pneumatized. IMPRESSION: 1. There is an age indeterminate short segment dissection within the mid left vertebral artery. The vessel is patent distally and this is of indeterminant acute significance. 2. There is at least moderate stenosis at the origin of both vertebral arteries. 3. The carotid arteries are widely patent bilaterally. 4. Advanced emphysema. ACT 112: Negative or not required by law. Electronically signed by: Gerardo Alcantar M.D. 10/16/2022 4:09 PM Brain MRI 10/16/22 18:50 MRI OF THE BRAIN WITHOUT CONTRAST CLINICAL HISTORY: acute lacunar infarct COMPARISON STUDY: Head CT and CTA of the head performed earlier today. TECHNIQUE: Utilizing a 1.5 Ivy magnet and dedicated coil, multiplanar, multiecho imaging of the brain was performed without IV contrast. FINDINGS: There are no foci of restricted diffusion to suggest acute infarct. No acute intracranial hemorrhage, midline shift or mass effect is present. Ventricular system is normal. Basal cisterns are patent. There are no extra- axial collections. Flow-voids for the major intracranial vessels are present. 9 mm lacunar infarct within the right cerebellar hemisphere corresponds to the finding on head CT. This is chronic. Several old lacunar infarcts within the bilateral caudate nuclei are noted. Calvarial signal is normal. Focus of susceptibility biliary artifact overlies the left eyelid. A few additional scalp foci of susceptibility artifact are present. IMPRESSION: 1. No acute intracranial findings. 2. Old lacunar infarct within the right cerebellar hemisphere which corresponds to the finding on head CT performed earlier today. Several additional old bilateral caudate lacunar infarcts. ACT 112: Negative or not required by law. Electronically signed by: Sonny Echavarria M.D. 10/16/2022 8:[address] 10/17/22 11:09 CT OF THE THORACIC SPINE CLINICAL HISTORY: evaluation of T6,T7 fx COMPARISON STUDY: CT of the abdomen and pelvis July 06, [address] October 16, 2022. TECHNIQUE: Helical axial images of the thoracic spine were obtained. Sagittal and coronal reconstructions were viewed. Automated exposure control was utilized for the study. A dose lowering technique was utilized adhering to the principles of ALARA. FINDINGS: Alignment of the thoracic spine is anatomic. A moderate L1 compression fracture is noted with 7 mm of retropulsion at the superior endplate. Fracture line is more conspicuous than on CT of July 06, 2022. Subacute T6 and T7 mild compression fractures are noted. There is no retropulsion at these levels. There may be a subtle acute compression fracture along the superior endplate of T10. No additional thoracic spine fractures are present. Central canal and neural foramen is about be assessed given CT technique. Severe bullous emphysema is noted within the adjacent lungs. Lungs are better assessed on recent chest CT IMPRESSION: 1. Moderate L1 compression fracture with 7 mm retropulsion at the superior endplate which results in at least mild central canal stenosis. This may reflect an acute to subacute on chronic fracture when correlating with earlier CT of July 06, 2022. 2. Subacute mild T6 and T7 compression fractures. No retropulsion. 3. Possible nondisplaced acute T10 compression fracture with subtle buckling of the anterior cortex. ACT 112: Negative or not required by law. Electronically signed by: Sonny Echavarria M.D. 10/17/2022 2:[address] 10/17/22 11:10 CT SCAN OF THE LUMBAR SPINE WITHOUT IV CONTRAST CLINICAL HISTORY: L1 compression fracture. COMPARISON STUDY: Abdominal CT dated 07/06/2022. TECHNIQUE: CT scan of the thoracic spine was performed from the lower thoracic spine to the sacrum. Images are reviewed in the axial, sagittal, and coronal planes. IV contrast was not administered for this examination. A dose lowering technique was utilized adhering to the principles of ALARA. FINDINGS: The skeletal structures are osteopenic. Again seen is a moderate compression fracture of L1. This has been present dating back to at least 07/06/2022, and the fracture lucency appears increased from the prior examination. This could be acute to subacute on chronic. Loss of height is similar to the prior examination. Fragments are retropulsed by up to 6 mm. This causes at least mild central canal stenosis at this level. Fracture does not involve the posterior elements. There is minimal paravertebral edema at this level. No additional findings are suspicious for acute fracture. Vertebral body height is otherwise maintained throughout the lumbar spine. Alignment is preserved. Small anterior and lateral marginal osteophytes are seen throughout. The transverse and spinous processes are intact. There is no spondylolysis. No lytic or blastic lesion is seen. The disc spaces appear maintained. No large disc herniation is identified. The visualized sacrum and bony pelvis appear intact. The paraspinous soft tissues are normal as imaged. There is moderate atherosclerotic calcification of the abdominal aorta. An infrarenal abdominal aneurysm is partially visualized. No retroperitoneal lymphadenopathy is seen. Excreted IV contrast is present within the renal collecting system bilaterally. IMPRESSION: 1. There is a moderate compression fracture of L1. Although this has been present dating back to at least 07/06/2022, the fracture lucency has increased from the prior examination. This could represent an acute to subacute on chronic fracture. Clinical correlation will be essential. 2. Loss of height at L1 is similar to previous. 3. Fragments are retropulsed by up to 7 mm at L1. This contributes to at least mild central canal stenosis. 3. No additional fracture is seen involving the lumbar spine. 4. An infrarenal abdominal aortic aneurysm is partially visualized. This was better assessed on the 07/06/[address] ACT 112: Negative or not required by law. Dictated: 10/17/2022 12:32 PM Transcribed: 10/17/2022 12:59 PM [facility] [id number] [email or web address] Electronically signed by: Gerardo Alcantar M.D. 10/17/2022 1:00 PM Ordered Studies 10/16/22 13:29 CT cervical spine wo con Stat 10/16/22 13:30 CT head/brain wo con Stat 10/16/22 15:03 CT angio chest PE protocol Stat CT angio head w con Stat CT angio neck with con Stat 10/16/22 18:50 MR brain wo con Urgent 10/17/22 11:09 CT thoracic spine wo con Routine 10/17/22 11:10 CT lumbar spine wo con Routine Hospital Course (1) Syncope: Syncope Unclear etiology Chronic CVA: Multiple (right cerebellar, bilateral lacunar infarcts) -MRI Brain:No acute intracranial findings. Old lacunar infarct within the right cerebellar hemisphere which corresponds to the finding on head CT performed earlier today. Several additional old bilateral caudate lacunar infarcts. --Head CTA:No central vessel occlusion. No intracranial aneurysm. 30% stenosis of the intracranial portion of the left vertebral artery. 9 mm age- indeterminate lacunar infarct within the right cerebellar hemisphere. --Neck CTA:There is an age indeterminate short segment dissection within the mid left vertebral artery. The vessel is patent distally and this is of indeterminant acute significance. There is at least moderate stenosis at the origin of both vertebral arteries. The carotid arteries are widely patent bilaterally. Advanced emphysema. --ECHO: Mild concentric LVH. Mild global hypokinesis of left ventricle. Septal motion is consistent with conduction abnormality. EF 45 to 50%. Grade 2 diastolic dysfunction. Mild to moderate aortic regurgitation. 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 Imaging studies as above Continue IV heparin for now Vascular surgery consulted--pending Patient doesn't want to have any interventions/surgery Patient wants to be discharged despite explaining the risks and complications of being unevaluated by Vascular surgery (3) Cerebellar stroke: Management as above Chronic diastolic heart failure No signs of acute decompensation ECHO as above Plan to start on Lasix 20 mg daily Advised to follow-up with cardiology as outpatient (4) COPD (chronic obstructive pulmonary disease): Long-term smoker with bullous emphysema on CT. Tobacco use disorder Patient not interested to quit smoking No signs of exacerbation of COPD counseled to quit smoking (5) Closed compression fracture of L1 vertebra: Moderate L1 compression fracture T6, T7 compression fractures Possible nondisplaced acute T10 compression fracture --Lumbar CT: There is a moderate compression fracture of L1. Although this has been present dating back to at least 07/06/2022, the fracture lucency has increased from the prior examination. This could represent an acute to subacute on chronic fracture. Clinical correlation will be essential. Loss of height at L1 is similar to previous. Fragments are retropulsed by up to 7 mm at L1. This contributes to at least mild central canal stenosis. No additional fracture is seen involving the lumbar spine. An infrarenal abdominal aortic aneurysm is partially visualized. This was better assessed on the 07/06/[address] -- Thoracic spine CT :Moderate L1 compression fracture with 7 mm retropulsion at the superior endplate which results in at least mild central canal stenosis. This may reflect an acute to subacute on chronic fracture when correlating with earlier CT of July 06, 2022. Subacute mild T6 and T7 compression fractures. No retropulsion. Possible nondisplaced acute T10 compression fracture with subtle buckling of the anterior cortex. --Orthopedics consulted--pending Patient doesn't want to have any interventions/surgery Patient wants to be discharged despite explaining risks/complications Abnormal CT --CT showed:Focal thickening and mild fat stranding at the gastroesophageal junction. Follow-up nonemergent endoscopy recommended to exclude the possibility of underlying gastroesophageal mass.. -- Will need outpatient endoscopy (6) Compression fx, thoracic spine: Management as above (7) Smoker: Not interested to quit smoking currently DVT Px: IV Heparin Code Status Full code Total Time Total Time Spent Total Time Spent (In Minutes): 53 minutes Discharge Plan Discharge Items Patient Disposition: Home - Self-Care Reason For Visit: STROKE Discharge Diagnosis: Syncope Left dissection of vertebral artery Moderate L1 compression fracture T6, T7 compression fractures Possible nondisplaced acute T10 compression fracture Thickening of gastroesophageal junction Tobacco use disorder Activity: Per Instructions section Exercise/Sports: Wait until after follow-up appointment Non-emergency contact: Primary Care Provider, Surgeon and Water Chaser Call non-emergency contact if: you have any medication questions, your symptoms worsen, your pain is concerning for you and you have a fever Follow-up/Referrals: Bennett Prakash DO [Primary Care Provider] - (Date & Time 10/22/2022 11:20 AM Provider Bennett Prakash DO [facility] ) Diet: Heart Healthy Addtl Attending Provider Instructions: Follow-up with your primary care physician on 10/22/2022 11:20 AM Follow-up with your neurologist Dr. Brown in 2 to 3 weeks as recommended Follow-up with neurovascular surgery for further evaluation of dissection of left vertebral artery Follow-up with your telecom specialist for further evaluation of diastolic heart failure Follow-up with your orthopedic surgeon for management of vertebral fractures --- You are incidentally noted to have focal thickening of the gastroesophageal junction. Follow-up with your county court judge for outpatient upper endoscopy. --- Quit smoking tobacco as advised. --- Take aspirin 81 mg, Plavix 75 mg daily for 3 weeks and then take 81 mg aspi rin alone as recommended by your neurologist. -- Also start taking Lipitor 40 mg daily, Lasix 20 mg daily. -- Do not take group of medications belonging to NSAIDs group -can cause wo rsening of your kidney function and increase your risk for bleeding while on aspirin, Plavix List Of these medications includes but not limited to: Aspirin Diclofenac Ibuprofen, Motrin, Advil Toradol,ketorolac Naproxen, Aleve, Naprosyn You can take Tylenol as needed for pain or fever When buying meef-zid-xwgoavv pain medications please consult with pharmacy if you are not sure regarding ingredients, as a lot of the pain medications have combination of NSAIDs and Tylenol. Seek immediate medical attention if your symptoms reoccur or worsen Please take all medications as instructed on discharge list below. Please call if you have any questions or problems. You can reach a [facility] hospitalist on duty at [facility] 24 hours a day by calling [phone] Pending Studies at Discharge: No Stand-Alone Forms: My [facility], Smoking Cessation Medications and DC Order Prescriptions: New atorvastatin 40 mg Tablet 40 mg PO HS Qty: 30 1RF clopidogrel 75 mg Tablet 75 mg PO QAM Qty: 21 0RF aspirin 81 mg Tablet,Delayed Release (Dr/Ec) 81 mg PO DAILY Qty: 30 1RF furosemide 20 mg Tablet 20 mg PO QAM Qty: 30 0RF Discontinued naproxen sodium [Aleve] 220 mg Tablet 200 mg PO BID PRN (Reason: Pain) Discharge Orders: Discharge Order (Routine); Ordered 10/18/22 Ordered By: Kenney Ellis Admission Data Admit Date/Time: 10/16/22 17:22 Attending Provider: Kenney Ellis Admit Provider: Sangita Peacock Primary Care Provider: Bennett Prakash Other Providers: Sangita Peacock ; Shai Brown ; Amrit Simental ; Canelo Doll
--- NOTE | 2022-10-18 10:56 | Consultation ---
Date of Consultation October 18, 2022 Assessment & Plan (1) Dissection of vertebral artery: Pt with vertebral artery dissection, unlikely related to his syncopal event. No intervention required for this at this time. If pt develops further sx, could refer to neuro interventional rads. (2) AAA (abdominal aortic aneurysm): Pt with 3.8cm AAA noted on imaging from July 2022. This will require follow up US for surveillance in Jul 2023. Office will call to schedule US and OV. Pt agreeable. History of Present Illness Reason for Consultation: vertebral art dissection Attending Physician: Kenney Ellis MD History of Present Illness 67 yo m with hx of COPD, HTN, vertebral compression fx, admitted after a syncopal episode, seen in consultation today for incidentally noted vertebral art dissection. Pt states he was just walking and the next thing he knew, he was in an ambulance. States he felt a little flushed and nauseated for about a second prior to the event. No prior similar episodes. Denies palpitations, dizziness/lightheadedness, FOREMAN, vision changes, chest pain, SOB, abd pain, vomit ing, rest pain, claudication, discoloration of his toes, other complaints. Review of imaging: CTA neck done this admission demonstrates a vertebral art dissection. CT abd/pelvis from Jul 2022 demonstrated a 3.8cm AAA. Pt denies any knowledge of this and states he has no follow up for this. Denies any family hx of AAA. Allergies Allergy/AdvReac Type Severity Reaction Status Date / Time No Known Allergies Allergy Unverified 10/16/22 17:14 Home Medications Medication Instructions Recorded Confirmed Type naproxen sodium 220 mg tablet 200 mg PO BID PRN Pain 07/06/22 10/16/22 History (Aleve) aspirin 81 mg tablet,delayed 81 mg PO DAILY #30 tabs 10/18/22 Rx release atorvastatin 40 mg tablet 40 mg PO HS #30 tabs 10/18/22 Rx clopidogrel 75 mg tablet 75 mg PO QAM #21 tabs 10/18/22 Rx furosemide 20 mg tablet 20 mg PO QAM #30 tabs 10/18/22 Rx Patient History Medical History AAA (abdominal aortic aneurysm) Cardiomegaly Emphysema of lung Inguinal hernia Smoker Surgical History Hx of tonsillectomy S/P left inguinal hernia repair (07/08/22) Robotic Left Laparoscopic Inguinal Hernia Repair (Not Applicable) - Adrian Beaver DO, YAZ Family History Mother Breast cancer Brother Cancer Sister Cancer Social History Smoking Status: Current every day smoker Hx Alcohol Use: No Hx Substance Use: No Preferred Language: [place] Citizen Communication Ability: Effective Hearing Ability: Normal Pr Intern Required: No Beliefs That Will Affect Care: None marital status: Single Current Living Situation: Alone Current Living Situation Comment: home alone current occupational status: retired current occupation: worked for [employer] and [employer] Other Information That Helps Us Care for You: No Feels Safe at Home: Yes Assistive Devices: None Review of Systems Review of Systems: All systems reviewed & are unremarkable except as noted in HPI & below Physical Exam Constitutional: WD/WN, vitals as above Neck: trachea midline Respiratory: normal respiratory effort Auscultation: + diminished lung sounds and + wheezes Cardiovascular: Rate/Rhythm: regular rate and regular rhythm Vessels: femoral pulses present, posterior tibial pulses present, dorsalis pedis pulses present and radial pulses present; + abnormal peripheral pulses Extremities: normal capillary refill; no edema Gastrointestinal (Abdomen): Inspection/Auscultation: abdomen normal to inspection and normal bowel sounds Percussion/Palpation: abdomen soft and + pulsatile mass (difficult to palpate); abdomen nontender Musculoskeletal: no cyanosis or clubbing, extremities motor strength 5/5 Skin: no rashes, warm and dry Neurologic: moves all extremities and awake; no focal motor deficits and not confused Psychiatric: A+Ox3, euthymic affect Results & Data ([facility]) Vital Signs (Past 12 Hours) Vital Signs Temp Pulse Pulse Resp BP BP Pulse Ox 10/18/22 07:20 10/18/22 08:00 70 10/18/22 07:28 36.6 C 64 18 169/94 H 95 10/18/22 03:14 36.7 C 79 18 151/92 H 94 10/17/22 23:54 36.7 C 79 18 155/97 H 96 10/17/22 23:35 73 O2 Del Method 10/18/22 07:20 Room Air 10/18/22 08:00 10/18/22 07:28 Room Air 10/18/22 03:14 Room Air 10/17/22 23:54 Room Air 10/17/22 23:35
[2022-10-19] MEDS ORDERED: FUROSEMIDE 20 MG TAB PO SCH (09:00)
--- NOTE | 2022-10-25 10:41 | Orthopedic Consultation ---
Date of Consultation October 25, 2022 Assessment & Plan (1) Closed compression fracture of L1 vertebra: Patient was discharged prior to my ability to evaluate and see the patient. No formal consult was performed. History of Present Illness Reason for Consultation: Orthopedic spine consult Attending Physician: Kenney Ellis MD Allergies Allergy/AdvReac Type Severity Reaction Status Date / Time No Known Allergies Allergy Unverified 10/16/22 17:14 Home Medications Medication Instructions Recorded Confirmed Type aspirin 81 mg tablet,delayed 81 mg PO DAILY #30 tabs 10/18/22 Rx release atorvastatin 40 mg tablet 40 mg PO HS #30 tabs 10/18/22 Rx clopidogrel 75 mg tablet 75 mg PO QAM #21 tabs 10/18/22 Rx furosemide 20 mg tablet 20 mg PO QAM #30 tabs 10/18/22 Rx Patient History Medical History AAA (abdominal aortic aneurysm) Cardiomegaly Emphysema of lung Inguinal hernia Smoker Surgical History Hx of tonsillectomy S/P left inguinal hernia repair (07/08/22) Robotic Left Laparoscopic Inguinal Hernia Repair (Not Applicable) - Adrian Beaver DO, FACS Family History Mother Breast cancer Brother Cancer Sister Cancer Social History Smoking Status: Current every day smoker Hx Alcohol Use: No Hx Substance Use: No Preferred Language: Finnish Communication Ability: Effective Hearing Ability: Normal Bunk House Worker Required: No Beliefs That Will Affect Care: None marital status: Single Current Living Situation: Alone Current Living Situation Comment: home alone current occupational status: retired current occupation: worked for [employer] and [employer] Feels Safe at Home: Yes Assistive Devices: None (1) Closed compression fracture of L1 vertebra Encounter type: initial encounter Qualified Code(s): S32.010A - Wedge compression fracture of first lumbar vertebra, initial encounter for closed fracture
== END 2022-10-18 12:26 | disposition home or self-care (01) | DRG 312 ==
LOC: ED 13:15 → SUATTDRO 17:22 → EDINP 17:22 → 2N 20:19
DX: Z86.73 Personal history of transient ischemic attack (TIA), and cerebral infarction without residual deficits; R93.3 Abnormal findings on diagnostic imaging of other parts of digestive tract; S22.060A Wedge compression fracture of T7-T8 vertebra, initial encounter for closed fracture; S22.050A Wedge compression fracture of T5-T6 vertebra, initial encounter for closed fracture; I77.74 Dissection of vertebral artery; Z79.899 Other long term (current) drug therapy; S32.010A Wedge compression fracture of first lumbar vertebra, initial encounter for closed fracture; I50.32 Chronic diastolic (congestive) heart failure; Z79.82 Long term (current) use of aspirin; I71.40 Abdominal aortic aneurysm, without rupture, unspecified; F17.200 Nicotine dependence, unspecified, uncomplicated; R55 Syncope and collapse; W19.XXXA Unspecified fall, initial encounter; I11.0 Hypertensive heart disease with heart failure; J43.9 Emphysema, unspecified

== ENCOUNTER 2023-05-29 14:35 | Inpatient (IN) ==
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
[2023-05-29] MEDS ORDERED: ALBUT/IPRATROP 3MG/0.5MG NEB 3 ML VIAL NEB STA (14:56)
[2023-05-29] MEDS ORDERED: methylPREDNISolone 125 MG/2 ML VIAL IV STA (14:56)
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
[2023-05-29 15:22] LABS: Basophils # (auto) 0.04 K/uL (0.00-0.20); Basophils % (auto) 0.5 %; Eosinophils # (auto) 0.08 K/uL (0.00-0.50); Hematocrit (blood only) 43.1 % (42.0-52.0); Hemoglobin 14.7 g/dl (14.0-18.0); Immature Granulocytes # (auto) 0.05 K/uL (0.01-0.20); Immature Granulocytes % (auto) 0.6 %; Lymphocytes # (auto) 1.56 K/uL (1.20-3.40); Lymphocytes % (auto) 18.7 %; Mean Corpuscular Hemoglobin 31.5 pg (25.0-34.0); Mean Corpuscular Hgb Conc 34.1 g/dL (32.0-36.0); Mean Corpuscular Volume 92.5 fL (80.0-100.0); Monocytes # (auto) 0.63 K/uL (0.11-0.59); Monocytes % (auto) 7.5 %; Neutrophils # (auto) 5.99 K/uL (1.40-6.50); Neutrophils % (auto) 71.7 %; Platelet Count 141 K/uL (130-400); RDW Coefficient of Variation 12.9 % (11.5-14.5); RDW Standard Deviation 43.4 fL (36.4-46.3); Red Blood Count 4.66 M/uL (4.70-6.10); White Blood Count 8.35 K/ul (4.8-10.8)
[2023-05-29 15:49] LABS: Base Excess VBG 3.3 mEq/L; HCO3 VBG 29 mmol/L; Oxygen Saturation VBG < 60.0 %; PCO2 VBG 48 mmHg (38-50); PO2 VBG 36 mmHg; pH VBG 7.39 (7.36-7.41)
[2023-05-29 15:52] LABS: Troponin I High Sensitivity 4.8 pg/ml (0-20)
[2023-05-29 16:34] LABS: Albumin Globulin Ratio 1.3 (0.9-2); Albumin Level 3.9 gm/dl (3.4-5.0); Bilirubin Direct 0.1 mg/dl (0-0.2); Bilirubin,Total 0.5 mg/dl (0.2-1.0); Calcium 9.1 mg/dl (8.6-10.3); Creatinine Clr Calc Pharmacy 91.6 ml/min; Est GFR (African American) 102.5 ml/min; Est GFR (Non-African American) 88.5 ml/min; Globulin 3.1 gm/dl (2.5-4.0); Potassium 4.3 mmol/L (3.5-5.1)
[2023-05-29] MEDS ORDERED: IOVERSOL 350 MG 125mL Prefilled Syringe IV ONE (16:56)
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
[2023-05-29 17:18] LABS: Adenovirus PCR Not Detected (NotDetected); Bordetella parapertussis PCR Not Detected (NotDetected); Bordetella pertussis PCR Not Detected (NotDetected); Chlamydia pneumoniae PCR Not Detected (NotDetected); Coronavirus 229E PCR Not Detected (NotDetected); Coronavirus CoV-2 (COVID19)PCR Not Detected (NotDetected); Coronavirus HKU1 PCR Not Detected (NotDetected); Coronavirus NL63 PCR Not Detected (NotDetected); Coronavirus OC43PCR Not Detected (NotDetected); Human Metapneumovirus PCR Not Detected (NotDetected); Influenza A PCR Not Detected (NotDetected); Influenza B PCR Not Detected (NotDetected); Mycoplasma pneumoniae PCR Not Detected (NotDetected); Parainfluenza Virus 1 PCR Not Detected (NotDetected); Parainfluenza Virus 2 PCR Not Detected (NotDetected); Parainfluenza Virus 3 PCR Not Detected (NotDetected); Parainfluenza Virus 4 PCR Not Detected (NotDetected); Respiratory Syncytial VirusPCR Not Detected (NotDetected); Rhinovirus/Enterovirus PCR Not Detected (NotDetected)
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
[2023-05-29] MEDS ORDERED: ALUMINUM/MAGNESIUM SUSP 30 ML UDC PO PRN (18:48)
[2023-05-29] MEDS ORDERED: ONDANSETRON INJ 2 MG/ML 2 ML VIAL IV PRN (18:48)
[2023-05-29] MEDS ORDERED: MAGNESIUM HYDROXIDE SUSP 30 ML UDC PO PRN (18:48)
[2023-05-29] MEDS ORDERED: POLYETHYLENE (MIRALAX) 17 GM PACK PO PRN (18:48)
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
[2023-05-29] MEDS ORDERED: AZITHROMYCIN 500 MG in DEXTROSE 5% 250 ML IV SCH (21:00)
[2023-05-29] MEDS: predniSONE 20 MG TAB PO SCH (21:32)
[2023-05-29] MEDS ORDERED: GADOBUTROL 65ML VIAL IV ONE (23:06)
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
[2023-05-30 06:54] LABS: Hematocrit (blood only) 40.8 % (42.0-52.0); Hemoglobin 14.4 g/dl (14.0-18.0); Mean Corpuscular Hemoglobin 31.8 pg (25.0-34.0); Mean Corpuscular Hgb Conc 35.3 g/dL (32.0-36.0); Mean Corpuscular Volume 90.1 fL (80.0-100.0); Mean Platelet Volume 10.5 fL (9.4-12.4); Platelet Count 161 K/uL (130-400); RDW Coefficient of Variation 12.9 % (11.5-14.5); RDW Standard Deviation 41.9 fL (36.4-46.3); Red Blood Count 4.53 M/uL (4.70-6.10); White Blood Count 10.92 K/ul (4.8-10.8)
[2023-05-30 07:13] LABS: Albumin Globulin Ratio 1.4 (0.9-2); Albumin Level 3.8 gm/dl (3.4-5.0); BUN Creatinine Ratio 19.3 (10-20); Bilirubin,Total 0.6 mg/dl (0.2-1.0); Calcium 8.9 mg/dl (8.6-10.3); Creatinine Clr Calc Pharmacy 96.6 ml/min; Est GFR (African American) 105.5 ml/min; Globulin 2.7 gm/dl (2.5-4.0); Potassium 4.1 mmol/L (3.5-5.1); Total Protein 6.5 gm/dl (6.0-8.3)
[2023-05-30] MEDS: METOPROLOL SUCC 25MG EXT REL TAB PO SCH (08:16)
[2023-05-30] MEDS: predniSONE 20 MG TAB PO SCH (08:16)
[2023-05-30] MEDS: lisinopril 20 MG TAB PO SCH (08:16)
[2023-05-30] MEDS: ASPIRIN 81 MG ECTAB PO SCH (08:16)
[2023-05-30] MEDS: ACETAMINOPHEN 325 MG TAB PO PRN (08:21)
[2023-05-30] MEDS: FLUTICASONE/VILANTEROL 100/25MCG 14 PUFFS/INHALER INH SCH (09:07)
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
[2023-05-30] MEDS ORDERED: WATER, STERILE FOR INJ 10 ML VIAL ONE (12:48)
[2023-05-30] MEDS ORDERED: VANCOMYCIN HCL 1000MG/20ML VIAL ONE (12:49)
[2023-05-30] MEDS ORDERED: BUPIVACAINE 0.25% PF 30 ML VIAL ONE (12:49)
--- NOTE | 2023-05-30 13:30 | History & Physical Bridge Note ---
Date of Service May 30, 2023 History & Physical Bridge Note I have examined the patient, reviewed the History & Physical and in the interval since the performance of the History & Physical I have noted the following changes of clinical significance: Pt with recurrent syncope with etiology concerning for high degree intermittent heart block as he has a RBBB and LAFB. Recommend a dual chamber pacemaker. Discussed the procedure and potential risks with patient he expressed an understanding and consents signed.
--- NOTE | 2023-05-30 13:30 | Pre Anesthesia Assessment ---
Date of Service May 30, 2023 Pre Sedation Assessment Vital Signs Temp Pulse Pulse Resp BP BP Pulse Ox 05/30/23 12:12 37.1 C 92 H 19 160/94 H 94 05/30/23 08:00 88 05/30/23 09:16 36.6 C 95 H 18 155/89 H 96 05/30/23 02:34 36.6 C 89 18 147/86 H 95 05/30/23 01:36 107 H 05/29/23 23:24 36.6 C 95 H 18 165/107 H 96 05/29/23 21:10 05/29/23 21:00 100 H 05/29/23 22:18 36.6 C 107 H 16 145/101 H 95 05/29/23 20:00 100 H 18 144/66 H 94 05/29/23 20:25 90 18 95 05/29/23 18:23 94 H 18 129/82 94 05/29/23 18:44 94 H 05/29/23 15:21 101 H 94 05/29/23 14:23 36.7 C 18 82 L 05/29/23 14:47 36.7 C 108 H 18 148/95 H 82 L 05/29/23 14:42 112 H O2 Del Method O2 Flow Rate 05/30/23 12:12 Nasal Cannula 4.0 05/30/23 08:00 05/30/23 09:16 Room Air 05/30/23 02:34 Nasal Cannula 4 05/30/23 01:36 05/29/23 23:24 Nasal Cannula 4 05/29/23 21:10 Nasal Cannula 4 05/29/23 21:00 05/29/23 22:18 Nasal Cannula 4 05/29/23 20:00 Room Air 05/29/23 20:25 Nasal Cannula 4 05/29/23 18:23 Nasal Cannula 5 05/29/23 18:44 05/29/23 15:21 Nasal Cannula 5 05/29/23 14:23 Room Air 05/29/23 14:47 Room Air 05/29/23 14:42 Cardiovascular RRR, no murmur, no edema Respiratory normal respiratory effort, lungs clear to auscultation Pre-Sedation Airway Assessment Smoking Status: Current every day smoker Thyromental Distance: < 3.5 Finger Breadths Oral Cavity: + WNL Mallampati Class: II ASA: ASA3 NPO Status Date of Last Intake of Fluids: 05/30/23 Time of Last Intake of Fluids: : Date of Last Intake of Solid Food: 05/30/23 Time of Last Intake of Solid Foods: Procedure Planning Contraindications for Sedation: none Current Medications Reviewed: Yes Notes The planned sedation has been discussed with the patient. Informed Consent was obtained. I have identified the patient, determined the appropriateness of sedation and have assessed the patient immediately prior to the procedure. All medicine(s) and interventions are by my order.
[2023-05-30] MEDS ORDERED: ceFAZolin 330 MG/ML 1 GM VIAL ONE (13:37)
[2023-05-30] MEDS ORDERED: fentaNYL citrate PF 100 MCG/2 ML VIAL ONE ×2 (13:37→14:12)
[2023-05-30] MEDS ORDERED: MIDAZOLAM HCL 1 MG/ML 2ML VIAL ONE ×3 (13:37→14:12)
[2023-05-30] MEDS ORDERED: diphenhydrAMINE 50 MG/ML VIAL ONE (14:06)
--- NOTE | 2023-05-30 14:58 | Post Anesthesia Assessment ---
Date of Service May 30, 2023 Post Sedation Assessment Vital Signs Temp Pulse Pulse Resp BP Pulse Ox O2 Del Method 05/30/23 12:12 37.1 C 92 H 19 160/94 H 94 Nasal Cannula 05/30/23 08:00 88 05/30/23 09:16 36.6 C 95 H 18 155/89 H 96 Room Air 05/30/23 02:34 36.6 C 89 18 147/86 H 95 Nasal Cannula 05/30/23 01:36 107 H 05/29/23 23:24 36.6 C 95 H 18 165/107 H 96 Nasal Cannula 05/29/23 21:10 Nasal Cannula 05/29/23 21:00 100 H 05/29/23 22:18 36.6 C 107 H 16 145/101 H 95 Nasal Cannula 05/29/23 20:00 100 H 18 144/66 H 94 Room Air 05/29/23 20:25 90 18 95 Nasal Cannula 05/29/23 18:23 94 H 18 129/82 94 Nasal Cannula 05/29/23 18:44 94 H 05/29/23 15:21 101 H 94 Nasal Cannula O2 Flow Rate 05/30/23 12:12 4.0 05/30/23 08:00 05/30/23 09:16 05/30/23 02:34 4 05/30/23 01:36 05/29/23 23:24 4 05/29/23 21:10 4 05/29/23 21:00 05/29/23 22:18 4 05/29/23 20:00 05/29/23 20:25 4 05/29/23 18:23 5 05/29/23 18:44 05/29/23 15:21 5 Recovery Score Activity: Moves 4 extremities Respiration: Deep Breath/Cough Circulation: +/-20% PreAnes Value Consciousness: Fully Awake Oxygen Saturation: > 92% On Room Air Discharge Sedation Level of Care: Fast Track Phase II Post Sedation Plan On clinical assessment, the patient appears to have tolerated the sedation without complications. Patient is recovering as anticipated. Patient will continue to be monitored by nursing and may be discharged when sedation discharge criteria are met per below protocol. Upon Completions of procedure up to 15 minutes continue every 5 minute vital signs and the P.A.R. score; then discharge to a Phase I or Fast Track to Phase II per the following guidelines: * Discharge Patient to appropriate Phase II area if PAR is 8 or greater or return to pre- procedure baseline. The post - procedure orders will be as directed. * If PAR score is less than 8 or not return to pre-procedure baseline then patient will follow Phase I monitoring till PAR is reached for Phase II. The Phase I may be done in procedure room or may call to secure a Phase I area. * If naloxone or flumazenil are used for reversal, hold in Phase I for continued monitoring from when last reversal dose was given for a minimum of 60 minutes or longer pending the nurse and/or physician discretion of patient condition before discharge to Phase II. Please call the Sedation Physician to re-evaluate and complete post-note for discharge to Phase II area. Do NOT discharge from procedure sedation or Phase 1 until post- sedation evaluation note is complete by procedure /sedation MD Sedation Discharge Instructions to be given to the patient at discharge to home.
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
--- NOTE | 2023-05-30 15:08 | Electrocardiogram Report ---
Test Reason : Blood Pressure : / mmHG Vent. Rate : 101 BPM Atrial Rate : 101 BPM P-R Int : 158 ms QRS Dur : 144 ms QT Int : 386 ms P-R-T Axes : 075 -54 036 degrees QTc Int : 500 ms Sinus tachycardia with Premature atrial complexes Right bundle branch block Left anterior fascicular block Bifascicular block Abnormal ECG When compared with ECG of 16-OCT-2022 13:21, Premature atrial complexes are now Present Confirmed by Yasmani Street ([id number]) on 05/30/2023 3:08:14 PM Referred By: REFERRED SELF Confirmed By:Yasmani Street
--- NOTE | 2023-05-30 15:26 | Electroencephalogram ---
EEG Procedure Note Date of Service May 30, 2023 Start / End Times Start Time: 13:08 End Time: 13:28 Referring Physician Waylon Mcmullen History A 67 year old male with syncope. EEG performed for evaluation of epileptiform activity. Home Medication List Medication Instructions Recorded Confirmed Type aspirin 81 mg tablet,delayed 81 mg PO DAILY #30 tabs 10/18/22 05/29/23 Rx release atorvastatin 40 mg tablet 40 mg PO HS #30 tabs 10/18/22 05/29/23 Rx albuterol sulfate 90 mcg/actuation 2 puff inhalation Q6 PRN cough,SOB 05/29/23 05/29/23 History aerosol inhaler or wheezing lisinopril 20 mg tablet 20 mg PO QAM 05/29/23 05/29/23 History metoprolol succinate 25 mg 12.5 mg PO DAILY 05/29/23 05/29/23 History tablet,extended release 24 hr Inpatient Medication List Acetaminophen (Acetaminophen 325 Mg Tab) 650 mg PO Q4H PRN PRN Reason: Pain or Fever Stop: 06/28/23 18:47 Last Admin: 05/30/23 08:21 Dose: 650 mg Documented By: Aspirin (Aspirin 81 Mg Ectab) 81 mg PO DAILY [facility] Stop: 06/29/23 08:59 Last Admin: 05/30/23 08:16 Dose: 81 mg Documented By: Fluticasone/Vilanterol (Fluticasone/Vilanterol 100/25mcg 14 Puffs/Inhaler) 1 puffs INH DAILY [facility] Stop: 06/29/23 08:59 Last Admin: 05/30/23 09:07 Dose: 1 puffs Documented By: Lisinopril (Lisinopril 20 Mg Tab) 20 mg PO QAM [facility] Stop: 06/29/23 08:59 Last Admin: 05/30/23 08:16 Dose: 20 mg Documented By: Metoprolol Succinate (Metoprolol Succ 25mg Ext Rel Tab) 12.5 mg PO DAILY [facility] Stop: 06/29/23 08:59 Last Admin: 05/30/23 08:16 Dose: 12.5 mg Documented By: Prednisone (Prednisone 20 Mg Tab) 40 mg PO DAILY [facility] Stop: 06/02/23 08:00 Last Admin: 05/30/23 08:16 Dose: 40 mg Documented By: Admin: 05/29/23 21:32 Dose: 40 mg Documented By: GEOFF Discontinued Medications Albuterol (Albut/Ipratrop 3mg/0.5mg Neb 3 Ml Vial) 3 ml NEB NOW STA; Protocol Stop: 05/29/23 14:57 Last Admin: 05/29/23 16:03 Dose: 3 ml Documented By: TOBY Bupivacaine HCl (Bupivacaine 0.25% Pf 30 Ml Vial) Confirm Administered Dose 60 ml .ROUTE .STK-MED ONE Stop: 05/30/23 12:50 Last Admin: 05/30/23 14:59 Dose: 60 ml Documented By: MEREDITH Cefazolin Sodium (Cefazolin 330 Mg/Ml 1 Gm Vial) Confirm Administered Dose 1,980 mg .ROUTE .STK-MED ONE Stop: 05/30/23 13:38 Last Admin: 05/30/23 14:59 Dose: 1,980 mg Documented By: OLIVIER Diphenhydramine HCl (Diphenhydramine 50 Mg/Ml Vial) Confirm Administered Dose 50 mg .ROUTE .ST-MED ONE Stop: 05/30/23 14:07 Last Admin: 05/30/23 15:02 Dose: 50 mg Documented By: OLIVIER Fentanyl Citrate (Fentanyl Citrate Pf 100 Mcg/2 Ml Vial) Confirm Administered Dose 100 mcg .ROUTE .STK-MED ONE Stop: 05/30/23 13:38 Last Admin: 05/30/23 14:59 Dose: 100 mcg Documented By: OLIVIER Fentanyl Citrate (Fentanyl Citrate Pf 100 Mcg/2 Ml Vial) Confirm Administered Dose 100 mcg .ROUTE .STK-MED ONE Stop: 05/30/23 14:13 Last Admin: 05/30/23 15:03 Dose: Not Given Documented By: OLIVIER Gadobutrol (Gadobutrol 65ml Vial) 9.5 ml IV ONCE ONE Stop: 05/29/23 23:07 Last Admin: 05/29/23 23:07 Dose: 9.5 ml Documented By: [facility] Azithromycin 500 mg/ Dextrose 255 mls @ 125 mls/hr IV Q24H [facility] Stop: 06/05/23 20:59 Last Infusion: 05/30/23 01:38 Dose: 0 mls/hr Documented By: Admin: 05/29/23 21:32 Dose: 125 mls/hr Documented By: GEOFF Ioversol (Ioversol 350 Mg 125ml Prefilled Syringe) 117 ml IV ONCE ONE Stop: 05/29/23 16:57 Last Admin: 05/29/23 16:56 Dose: 117 ml Documented By: GHADA Methylprednisolone (Methylprednisolone 125 Mg/2 Ml Vial) 125 mg IV NOW STA Stop: 05/29/23 14:57 Last Admin: 05/29/23 16:03 Dose: 125 mg Documented By: TOBY Midazolam HCl (Midazolam Hcl 1 Mg/Ml 2ml Vial) Confirm Administered Dose 2 mg .ROUTE .STK-MED ONE Stop: 05/30/23 13:38 Last Admin: 05/30/23 15:00 Dose: 2 mg Documented By: OLIVIER Midazolam HCl (Midazolam Hcl 1 Mg/Ml 2ml Vial) Confirm Administered Dose 2 mg .ROUTE .STK-MED ONE Stop: 05/30/23 14:04 Last Admin: 05/30/23 15:00 Dose: 2 mg Documented By: OLIVIER Midazolam HCl (Midazolam Hcl 1 Mg/Ml 2ml Vial) Confirm Administered Dose 2 mg .ROUTE .STK-MED ONE Stop: 05/30/23 14:13 Last Admin: 05/30/23 15:04 Dose: 2 mg Documented By: OLIVIER Sterile Water (Water, Sterile For Inj 10 Ml Vial) Confirm Administered Dose 10 ml .ROUTE .STK-MED ONE Stop: 05/30/23 12:49 Last Admin: 05/30/23 14:58 Dose: 10 ml Documented By: MEREDITH Vancomycin HCl (Vancomycin Hcl 1000mg/20ml Vial) Confirm Administered Dose 50 mg .ROUTE .STK-MED ONE Stop: 05/30/23 12:50 Last Admin: 05/30/23 14:59 Dose: 50 mg Documented By: MEREDITH Description This is a 21 electrode EEG with a single channel dedicated to limited EKG. The electrodes were placed in accordance with the International 10-20 system. REPORT: At the onset of the EEG, the patient is awake. The background activity consist of 8.5-9 Hz, persistent, posteriorly dominant, moderate amplitude, symmetric and rhythmic activity that is reactive to eye opening. Anteriorly, it consist of a mixture of low voltage indeterminate activity and 15-25 Hz, p ersistent, low amplitude, symmetric and rhythmic activity. Stepwise intermittent photic stimulation (1-21 Hz) does not induce any abnormalities. Drowsiness is characterized by low amplitude mixed frequency activity, roving eye movements, and decreased eye blinking and muscle artifact. Interpretation IMPRESSION: This is a normal awake and drowsy routine EEG. There is no evidence of focal slowing or epileptiform activity.
--- NOTE | 2023-05-30 16:28 | Electrocardiogram Report ---
Test Reason : Blood Pressure : / mmHG Vent. Rate : 089 BPM Atrial Rate : 089 BPM P-R Int : 168 ms QRS Dur : 140 ms QT Int : 420 ms P-R-T Axes : 068 -54 -08 degrees QTc Int : 511 ms Normal sinus rhythm Right bundle branch block Left anterior fascicular block Bifascicular block Abnormal ECG When compared with ECG of 29-MAY-2023 15:13, (unconfirmed) Premature atrial complexes are no longer Present T wave inversion now evident in Inferior leads Confirmed by Yasmani Street ([id number]) on 05/30/2023 4:27:41 PM Referred By: REFERRED SELF Confirmed By:Yasmani Street
--- NOTE | 2023-05-30 17:23 | XRay Report ---
XR chest 1V portable CLINICAL HISTORY: s/p ppm ensure no PTX TECHNIQUE: Single frontal radiograph of the chest was obtained. Comparison: Comparison is made to chest radiograph 05/29/2023 FINDINGS: Interval placement of dual-lead pacemaker. The cardiomediastinal silhouette is normal. Faint bibasila r airspace opacities are seen. Emphysema is noted. No evidence of pleural effusion or pneumothorax. IMPRESSION: Interval placement of dual-lead pacemaker. Leads are in satisfactory position and there is no evidenc e of pneumothorax. ACT 112: Negative or not required by law. Electronically signed by: Jens Jones M.D. 05/30/2023 5:21 PM
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
[2023-05-30] MEDS: DOXYCYCLINE HYCLATE 100 MG in DEXTROSE 5% 100 ML IV SCH (20:11)
[2023-05-30] MEDS ORDERED: ATORVASTATIN 40 MG TAB PO SCH (21:00)
[2023-05-31] MEDS: ACETAMINOPHEN 325 MG TAB PO PRN (06:08)
--- NOTE | 2023-05-31 07:18 | Electrocardiogram Report ---
Test Reason : Blood Pressure : / mmHG Vent. Rate : 090 BPM Atrial Rate : 090 BPM P-R Int : 154 ms QRS Dur : 138 ms QT Int : 402 ms P-R-T Axes : 050 -49 005 degrees QTc Int : 491 ms Normal sinus rhythm Right bundle branch block Left anterior fascicular block Bifascicular block Abnormal ECG When compared with ECG of 30-MAY-2023 04:50, No significant change was found Confirmed by Toño Crump ([id number]) on 05/31/2023 7:18:23 AM Referred By: REFERRED SELF Confirmed By:Don Crump
[2023-05-31] MEDS: DOXYCYCLINE HYCLATE 100 MG in DEXTROSE 5% 100 ML IV SCH (08:05)
[2023-05-31] MEDS: ASPIRIN 81 MG ECTAB PO SCH (08:08)
[2023-05-31] MEDS: lisinopril 20 MG TAB PO SCH (08:08)
[2023-05-31] MEDS: METOPROLOL SUCC 25MG EXT REL TAB PO SCH (08:08)
[2023-05-31] MEDS: predniSONE 20 MG TAB PO SCH (08:08)
[2023-05-31] MEDS: FLUTICASONE/VILANTEROL 100/25MCG 14 PUFFS/INHALER INH SCH (08:09)
--- NOTE | 2023-05-31 11:09 | XRay Report ---
XR chest 2V PA/lateral CLINICAL HISTORY: Pacemaker insertion. COMPARISON STUDY: Chest CT October 16, 2022. Chest radiograph May 30, 2023. FINDINGS: Left subclavian pacer is in place. There is no pneumothorax. Severe bullous emphysema is gr eatest within the left lung apex. No evidence for pulmonary edema. No consolidation to suggest pneumo farhana. Nipple shadows project over the chest. Cardiomediastinal silhouette is stable. IMPRESSION: No acute cardiopulmonary findings. No pneumothorax. Bullous emphysema. ACT 112: Negative or not required by law. Electronically signed by: Sonny Echavarria M.D. 05/31/2023 11:08 AM
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
--- NOTE | 2023-05-31 13:12 | Hospitalist Progress Note ---
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 pacemaker functioning appropriately for pacemaker check in 1 week at Cardiology Office [facility] Brain MRI: 1. No acute intracranial process. No abnormal enhancement. 2. Multiple chronic lacunar infarcts in the cerebellum and basal ganglia. 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 and should not cause syncope EEG: unrevealing reported to [facility] for driving restrictions COPD Exacerbation Acute Bronchitis Tobacco use: Uses albuterol inhaler as needed at home Smokes 1 pack cigarettes every 2 to 3 days; down from 2 packs/day Declines nicotine patch Recommended smoking cessation given Doxycycline, Prednisone, Nebs, Breo improved weaned off oxygen supplement discharge on: Prednisone taper Doxycycline course Breo HTN: Takes metoprolol and lisinopri History of CVA: HLD: Chronic 10/28 old lacunar cerebellar stroke Takes baby aspirin; continue Takes atorvastatin; continue AAA without rupture: Chronic stable Takes baby aspirin; continue Disposition: PCP: Dr. Prakash CODE STATUS: Full code VTE prophylaxis: Teds and SCDs Disposition d/c home ff up with PCP and Incident Response Engineer in 1 week plan of care discussed with patient in detail and at length all questions answered he is understanding, agreeable, comfortable with the plan of care Admission and Anticipated Discharge Date Admission Date: May 29, 2023 Subjective ff up for syncope secondary to heart block, etc seen resting in bed, comfortable states he feels better overall no chest pain, dyspnea, palpitations, dizziness sore on the PM site no fever/chills breathing is better less cough and sputum no other symptoms ambulated in the halls with no problems Review of Systems Review of Systems: all noted and negative except for above Physical Exam Physical Exam: General- oriented x 3, not in distress, speaks in sentences with no effort or accessory muscle use Eyes- anicteric Neck- no JVD Lungs- very faint wheeze bilaterally, no rales Heart- normal rate, regular rhythm; no murmurs JUIL chest wall: pacemaker site- no hematoma, bleeding or discharge Abdomen- normal bowel sounds, nondistended, soft, nontender Extremities- no pretibial edema, no calf tenderness Neuro- alert, oriented x 3; no gross focal neurologic deficits Skin- warm & dry Results & Data Results & Data Vital Signs (Past 12 Hours) Vital Signs Temp Pulse Pulse Pulse Pulse Resp Resp 05/31/23 13:01 114 H 111 H 22 05/31/23 12:15 37.5 C 89 19 05/31/23 09:00 89 05/31/23 09:00 05/31/23 06:48 37.1 C 91 H 18 05/31/23 02:35 37.2 C 87 18 Resp BP Pulse Ox Pulse Ox Pulse Ox O2 Del Method 05/31/23 13:01 18 94 92 05/31/23 12:15 144/82 H 92 Room Air 05/31/23 09:00 05/31/23 09:00 Room Air 05/31/23 06:48 135/90 98 Room Air 05/31/23 02:35 148/92 H 96 Nasal Cannula all noted and reviewed including below (2) COPD (chronic obstructive pulmonary disease) COPD type: unspecified COPD Qualified Code(s): J44.9 - Chronic obstructive pulmonary disease, unspecified (6) Hypertension Hypertension type: unspecified Qualified Code(s): I10 - Essential (primary) hypertension
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
[2023-05-31] MEDS ORDERED: DOXYCYCLINE HYCLATE 100 MG CAP PO SCH (21:00)
== END 2023-05-31 14:28 | disposition home or self-care (01) | DRG 243 ==
LOC: ED 14:35 → SUATTDRO 18:48 → 2E 18:48
DX: I50.42 Chronic combined systolic (congestive) and diastolic (congestive) heart failure; Z79.82 Long term (current) use of aspirin; Z88.8 Allergy status to other drugs, medicaments and biological substances; I69.398 Other sequelae of cerebral infarction; E78.5 Hyperlipidemia, unspecified; I45.2 Bifascicular block; I67.9 Cerebrovascular disease, unspecified; J43.9 Emphysema, unspecified; I44.2 Atrioventricular block, complete; Z87.891 Personal history of nicotine dependence; I71.40 Abdominal aortic aneurysm, without rupture, unspecified; I11.0 Hypertensive heart disease with heart failure; Z79.899 Other long term (current) drug therapy; Z20.822 Contact with and (suspected) exposure to COVID-19